=== PATIENT | male | born 1955 | race Caucasian/White ===

== ENCOUNTER → 2019-10-24 12:15 | Outpatient (CLI) | payer OTHER, SELFPAY ==
[2019-10-24 13:00] LABS: Add Manual Diff / Slide Review NO; Basophils Absolute Auto 100 /uL (0-100); Basophils Percent Auto 0.9 % (0-2); Eosinophils Absolute Auto 100 /uL (0-450); Eosinophils Percent Auto 2.2 % (2-4); Hematocrit 43.9 % (41-53); Hemoglobin 14.9 g/dL (13.5-17.5); Lymphocytes Absolute Auto 1900 /uL (1100-4500); Lymphocytes Percent Auto 28.4 % (25-40); Mean Corpuscular Hemoglobin 31.4 PG (26-34); Mean Corpuscular Volume 92.5 fL (80-100); Monocytes Absolute Auto 500 /uL (0-900); Monocytes Percent Auto 7.8 % (3-14); Neutrophils Absolute Auto 4100 /uL (1500-7000); Neutrophils Percent Auto 60.7 % (50-75); Platelet Count 184 X10^3/uL (150-400); Red Blood Cell Count 4.75 X10^6/uL (4.5-5.9); Red Cell Distribution Width 13.2 % (11.6-14.8); White Blood Cell Count 6.8 X10^3/uL (4.5-11.0)
[2019-10-24 13:09] LABS: INR 1.1 (0.9-1.3); Prothrombin Time 12.7 SECONDS (10.1-12.7)
[2019-10-24 13:11] LABS: PTT Partial Thromboplastin Tim 32 SECONDS (26.4-36.2)
[2019-10-24 13:19] LABS: Alanine Aminotransferase 20 IU/L (<50); Albumin 4.6 g/dL (3.5-5.0); Albumin Globulin Ratio 1.5 (1.0-2.8); Alkaline Phosphatase 48 U/L (38-126); Aspartate Aminotransferase 28 IU/L (17-59); BUN Creatinine Ratio 23.8 (6-22); Bilirubin Total 0.7 mg/dL (0.2-1.3); Blood Urea Nitrogen 25 mg/dL (9-20); Calcium 9.8 mg/dL (8.4-10.2); Carbon Dioxide 33 mmol/L (22-32); Chloride 101 mmol/L (98-107); Estimated Glomerular Filt Rate > 60.0 mL/min (>60); Globulin 3.1 g/dL (1.7-4.1); Glucose 95 mg/dL (80-110); HEMOLYSIS < 15 (0-50); Potassium 4.7 mmol/L (3.4-5.1); Sodium 139 mmol/L (137-145); Total Protein 7.7 g/dL (6.3-8.2)
== END ==
PROVIDERS: PCP Family Medicine; Referring Provider Family Medicine; Visit Provider Neurological Surgery
DX: Z01.818 Encounter for other preprocedural examination (principal)
CPT/HCPCS: 36415; 80053; 85025; 85610; 85730

== ENCOUNTER 2021-07-12 18:47 | Emergency (ER) | payer OTHER, SELFPAY ==
[2021-07-12 20:15] VITALS: BP 133/76; PULSE 90; RESP 20; TEMP 37.5; O2SAT 95; BMI 27.8
[2021-07-12 20:43] LABS: Bacteria Urine Many (>30); Culture Indicated Urine Specimen Cultured; RBC Urine 0-1/HPF (0-5/HPF); Squamous Epithelial Cell Urine 0-1 /HPF (0-5/HPF); Urine Comments 0-1 Oval Fat Body; WBC Urine 10-30/HPF (0-5/HPF)
--- NOTE | 2021-07-12 21:16 | ED_ITS ---
HPI - Male Genitourinary <ROBERT Olsen - Last Filed: 07/12/21 22:07> General Chief complaint: Urogenital-Male Stated complaint: UTI Time Seen by Provider: 07/12/21 21:07 Source: patient Mode of arrival: Wheelchair History of Present Illness HPI Narrative: This is a 66-year-old male with Parkinson's who presents to the emergency department for dysuria, pelvic pressure, low-grade fever which started 2 days ago. Patient has had UTIs in the past, he states this is his 3rd time, the last time was 4 years ago. He endorses having an enlarged prostate. He denies any urinary retention, abdominal pain, vomiting, endorses some mild nausea and feeling unwell. He denies any flank or back pain, he will denies taking any medication prior to arrival. Patient denies any recent STI exposure. He denies any rectal pain. Related Data Previous Rx's Medication Instructions Recorded sulfamethoxazole 800 1 tab PO BID 7 Days #14 tab 07/12/21 mg-trimethoprim 160 mg tablet (Bactrim DS) Allergies Allergy/AdvReac Type Severity Reaction Status Date / Time ampicillin [From UNASYN] Allergy Intermediate Unverified 07/29/17 12:31 sulbactam [From UNASYN] Allergy Intermediate Unverified 07/29/17 12:31 vancomycin [VANCOMYCIN] Allergy Intermediate Unverified 07/29/17 12:31 grass pollen Allergy Unknown Unverified 07/29/17 12:31 Review of Systems <ROBERT Olsen - Last Filed: 07/12/21 22:07> Review of Systems Narrative: General: denies fever, chills, malaise, sweats, fatigue Head/Neck: denies headache, neck pain, dizziness Eyes: denies visual changes, eye pain Cardio: denies chest pain, palpitations, edema Respiratory: denies dyspnea, cough, orthopnea GI: denies abdominal pain, nausea, vomiting, or diarrhea : Endorses dysuria, urinary frequency and pelvic pressure, denies hematuria, urinary retention,or incontinence MSK: denies joint pain, muscle weakness Skin: denies rash, itching, skin lesions or other Neuro: denies numbness, tingling Exam <ROBERT Olsen - Last Filed: 07/12/21 22:07> Narrative Exam Narrative: Independently reviewed vitals signs and nursing notes. General: cooperative, comfortable, in no acute distress, well developed and well groomed, slightly febrile 99.5F Head: atraumatic, symmetrical facial expressions Neck: supple, atraumatic, without lymphadenopathy. Eyes: pupils equal round and reactive, EOMI, conjunctiva normal Nose: nares patent, no rhinorrhea Mouth/Throat: uvula midline, moist mucus membranes Cardiovascular: regular rate and rhythm, no peripheral edema, warm extremities Respiratory: normal effort, able to speak in complete sentences, no audible wheezing, stridor, or rales. No retractions or tachypnea. GI: abdomen soft, nontender to palpation, nondistended, no masses, no exquisite tenderness with exam, without guarding or rebound. Patient tolerating p.o., he has been drinking water while waiting in the waiting room. MSK: moves all extremities, ambulatory w/steady gait, neurovascularly intact, no weakness Skin: brisk capillary refill, no rash, no erythema Neuro: normal speech and cognition, A&O x3, normal tone Psych: mental status is grossly normal, congruent mood, normal affect, pleasant and cooperative Initial Vital Signs Initial Vital Signs: Vital Signs Temperature 99.5 F 07/12/21 20:15 Pulse Rate 90 07/12/21 20:15 Respiratory Rate 20 07/12/21 20:15 Blood Pressure 133/76 07/12/21 20:15 Pulse Oximetry 95 07/12/21 20:15 Course <ROBERT Olsen - Last Filed: 07/12/21 22:07> Orders Ordered: Discontinued Medications Acetaminophen (Acetaminophen 325 Mg Tablet) 975 mg PO NOW ONE Stop: 07/12/21 21:16 Last Admin: 07/12/21 21:27 Dose: 975 mg Documented by: MICHELLE Ketorolac Tromethamine (Ketorolac 30 Mg/Ml Vial) 15 mg IM NOW ONE Stop: 07/12/21 21:14 Last Admin: 07/12/21 21:27 Dose: 15 mg Documented by: MICHELLE Trimethoprim/Sulfamethoxazole (Trimeth/Sulfa 160/800 (Ds) Tablet) 1 tab PO NOW ONE Stop: 07/12/21 21:14 Last Admin: 07/12/21 21:27 Dose: 1 tab Documented by: MICHELLE Vital Signs Vital signs: Vital Signs - 8 hr 07/12/21 20:15 07/12/21 21:31 Temperature 99.5 F Pulse Rate 90 84 Respiratory Rate 20 16 Blood Pressure 133/76 105/59 L Pulse Oximetry 95 94 MDM - Male Genitourinary <Catalina Mcknight TABLEAU REPORT DEVELOPER - Last Filed: 07/12/21 22:07> Lab Data Labs: Lab Results 07/12/21 Range/Units 20:25 Urine RBC 0-1/hpf (0-5/HPF) Urine WBC 10-30/hpf H (0-5/HPF) Ur Squamous Epith Cells 0-1 /hpf (0-5/HPF) Urine Bacteria Many (>30) H (None) Ur Culture Indicated? Specimen cultured Micro UA Comment 0-1 oval fat body Urine Dip Bedside Urine Nitrite + Positive MDM Narrative Medical decision making narrative: This is a 66 year female with Parkinson's disease who presents to emergency department complaining dysuria, urinary frequency, pelvic pressure for the last 2 days with a low-grade fever he states this is his 3rd UTI and is likely related to his enlarged prostate. He denies any urinary retention, states it has been 4 years since he has had an infection. UA today shows tendon 30 white blood cells on microscopy with over 30 bacteria, special was cultured, will follow-up on this, 0-1 oval fat body was also noticed on a microscopy. No hematuria. Patient had been waiting in the waiting room for over 2 hours, he states he would like to go home and will return if he has any worsening. He was given a dose of Bactrim in the emergency department, Toradol and Tylenol for his low-grade fever and pain. Encouraged hydration, rest, taking his antibiotics as prescribed, and having close follow-up with his primary care doctor. Was given a referral to Urology as this is his 3rd UTI. Low suspicion for prostatitis, he denies any rectal pain or pain with bowel movements, states that he has not had any STI exposure. Patient was given strict return precautions for any worsening fever, pain, feeling weak, nausea or vomiting. Patient denies any nausea vomiting today. Is most likely a complicated UTI, could also be nephrolithiasis, prostatitis, urethritis. Patient is appropriate and amenable to discharge home. Vital signs are stable on repeat examination is unremarkable. Patient has been informed of results. Patient has been given strict return to ER precautions for any new or worsening symptoms. Patient understands to follow up closely with outpatient providers as instructed. Patient understands plan and agrees to discharge home. All questions and concerns answered at this time. Discharge Plan Departure Patient Disposition: Home Clinical Impression: Complicated urinary tract infection Instructions: Urinary Tract Infection, DI for Urinary Retention in Men Activity Restrictions/Additional Instructions: *You have been diagnosed with a complicated urinary tract infection. Please call and get an appointment with your primary care provider as soon as possible for a recheck on Thursday. Let them know your in the emergency department any need to have follow-up from this visit, this will get you in sooner. [facility], please pick this up tomorrow. Please stay hydrated with electrolyte fluids. Please take Tylenol and or ibuprofen as needed for your fever. Please return to the emergency department if you have any worsening of her symptoms including vomiting, high fever, urinary retention or the inability to void. Thank you for trusting us with your care, please follow-up with urology continue have these problems, I have attached a referral for you. You would need to call and make an appointment with them for evaluation of your prostate and urologic problem. *What to do: *Please continue to take your regular medications as directed. [x ] New medication prescriptions sent to your pharmacy: [[facility] ] [ ] New medication written as a paper prescription [ ] No new medications given *Please follow up with your primary care provider in 2-3 days, call for an appointment. Let them know you were seen in the Emergency Department and that we asked that you be seen for follow-up. We will electronically transmit a record of today's note if your PCP is in our system *If you do not have a primary care provider please contact [phone] to establish care with one of the [facility] primary care providers. *Return to Emergency Department if you should have any new, worsening or concerning symptoms, such as [fever greater than 101F, chills, worsening pain, persistent vomiting or other bothersome symptoms] Prescriptions: New sulfamethoxazole-trimethoprim [Bactrim DS] 800-160 mg tablet 1 tab PO BID 7 Days Qty: 14 0RF Referrals: Yumiko Ann MD [Physician] - David Fan MD [Primary Care Provider] -
[2021-07-12] MEDS: TRIMETH/SULFA 160/800 (DS) TABLET 1 TAB PO (21:27)
[2021-07-12] MEDS: ACETAMINOPHEN 325 MG TABLET 975 MG PO (21:27)
[2021-07-12] MEDS: KETOROLAC 30 MG/ML VIAL 15 MG IM (21:27)
[2021-07-12 21:31] VITALS: BP 105/59; PULSE 84; RESP 16; O2SAT 94
== END 2021-07-12 21:41 | disposition home or self-care (01) ==
PROVIDERS: Emergency Medicine; Emergency Provider Nurse Practitioner Critical Care Medicine; PCP Family Medicine
DX: N39.0 Urinary tract infection, site not specified (principal); B96.20 Unspecified Escherichia coli [E. coli] as the cause of diseases classified elsewhere; N40.1 Benign prostatic hyperplasia with lower urinary tract symptoms
CPT/HCPCS: 81003; 81015; 87077; 87086; 87186; 96372; 99283; J1885

== ENCOUNTER 2021-07-15 10:53 | Emergency (ER) | payer OTHER, SELFPAY ==
[2021-07-15 11:12] VITALS: BP 109/58; PULSE 73; RESP 16; TEMP 36.8; O2SAT 95; BMI 27.1
--- NOTE | 2021-07-15 11:47 | ED_ITS ---
HPI - General Adult General Chief complaint: Urogenital-Male Stated complaint: UTI complications. Returning- Not getting better Time Seen by Provider: 07/15/21 11:04 Source: patient and family Mode of arrival: Wheelchair Limitations: no limitations History of Present Illness HPI narrative: 66-year-old male. Has a history of Parkinson's disease. Was seen here several days ago was diagnosed with the urinary tract infection. Was sent home with Bactrim. Since that time a urine culture has resulted. It was E coli that was sensitive to many antibiotics except was resistant to Bactrim. This resulted yesterday. He was contacted and switched to Macrobid. He has taken 2 doses of the Macrobid. He is here today because he is still continuing to have symptoms and is also having testicular pain. No nausea vomiting. Is having subjective fevers. No abdominal pain. States that he is feeling like he is not emptying his bladder all the way. He has had a urinary tract infection the past but that was many years ago. Is not followed by urology. Related Data Previous Rx's Medication Instructions Recorded sulfamethoxazole 800 1 tab PO BID 7 Days #14 tab 07/12/21 mg-trimethoprim 160 mg tablet (Bactrim DS) nitrofurantoin 100 mg PO Q12H 5 Days #10 cap 07/14/21 monohydrate/macrocrystals 100 mg capsule (Macrobid) Allergies Allergy/AdvReac Type Severity Reaction Status Date / Time ampicillin [From UNASYN] Allergy Intermediate Unverified 07/29/17 12:31 sulbactam [From UNASYN] Allergy Intermediate Unverified 07/29/17 12:31 vancomycin [VANCOMYCIN] Allergy Intermediate Unverified 07/29/17 12:31 grass pollen Allergy Unknown Unverified 07/29/17 12:31 Review of Systems Constitutional Constitutional: Reports fatigue and Reports fever(s) Gastrointestinal Gastrointestinal: Reports as per HPI and Reports system reviewed and no additional complaints, except as documented Genitourinary Genitourinary: Reports system reviewed and no additional complaints, except as documented and Reports as per HPI Integumentary/Breasts Skin/Breast: Reports system reviewed and no additional complaints, except as documented Neurologic Neurologic: Reports system reviewed and no additional complaints, except as documented Endocrine Endocrine: Reports fatigue Hematologic/Lymphatic On Anticoagulants: No Patient History Medical History Parkinsons disease Social History marital status: lives independently: Yes Exam Initial Vital Signs Initial Vital Signs: Vital Signs Temperature 98.3 F 07/15/21 11:12 Pulse Rate 73 07/15/21 11:12 Respiratory Rate 16 07/15/21 11:12 Blood Pressure 109/58 L 07/15/21 11:12 Pulse Oximetry 95 07/15/21 11:12 HENMT Head: normal to inspection and normocephalic Resp Effort & Inspection: normal respiratory effort Auscultation: clear to auscultation bilaterally Cardio Rate: regular rate Rhythm: regular rhythm GI Inspection: normal to inspection and non-distended Other: Patient does have a tender swollen right testicle. Left testicle is unremarkable. No hernia felt. Skin General: no rashes or lesions noted Neuro General: patient alert, patient awake, patient oriented x3 and moves all extremities Extrem General: normal to inspection and capillary refill normal Psych Appearance: grossly normal and well kempt Course Orders Ordered: ED Orders 07/15/21 11:47 US scrotum Stat Discontinued Medications Ceftriaxone Sodium 1,000 mg/ (Sodium Chloride) 100 mls @ 200 mls/hr IV NOW ONE Stop: 07/15/21 11:48 Last Infusion: 07/15/21 12:43 Dose: 0 mls/hr Documented by: Admin: 07/15/21 12:06 Dose: 200 mls/hr Documented by: DL Vital Signs Vital signs: Vital Signs - 8 hr 07/15/21 11:12 07/15/21 13:23 07/15/21 14:32 Temperature 98.3 F 97.5 F L Pulse Rate 73 60 Respiratory Rate 16 16 Blood Pressure 109/58 L 117/60 Pulse Oximetry 95 97 Medical Decision Making Imaging Data Scrotal ultrasound: Radiologist's Impression: [address] [address] Ultrasound Report Signed Patient: Jose Edgar MR#: [id number] : 1955 Acct:[id number] Age/Sex: 66 / M Date of Service: 07/15/21 Loc: ED Accession Number: [id number] ?? Procedure: US scrotum Ordering Provider: Humberto Del Castillo D.O. PROCEDURE:? US SCROTUM ? INDICATIONS:? RIGHT TESTICULAR SWELLING ? TECHNIQUE:? Real-time scanning was performed of the scrotum and testicles, with image documentation.? Color and pulse Doppler interrogation was performed of both testicles.? ? COMPARISON:? None. ? FINDINGS:? ? Right:? Testicle is normal in size at 4.6 x 3.4 x 2.2 cm, and homogenous in echotexture.? Epididymal body and tail are prominent.? There is increased vascularity.? The tail is heterogeneous in appearance.? Small epididymal head cysts.? No hydrocele or varicoceles.? Overlying scrotal skin is mildly thickness.? ? Left:? Testicle is normal in size at 4.7 x 2.6 x 2.4 cm, and homogeneous in echotexture.? Epididymis is normal in overall size and morphology.? Small epididymal head cysts.? No hydrocele or varicoceles.? Overlying scrotal skin is normal in thickness.? ? Doppler:? Increased vascularity in the right epididymis compared to the left.? Vascularity in the testicles appears to be within normal limits. ? IMPRESSION:? 1. Right epididymis is mildly heterogeneous and prominent in size compared to the left.? There is increased right epididymal vascularity.? There is right scrotal wall thickening. ?Findings most consistent with right epididymitis. ? 2. No testicular mass demonstrated. ? 3. No hydrocele or varicocele. ? ? Dictated by: Nirmal Damico M.D. on 07/15/2021 at 13:59 ? ? Approved by: Nirmal Damico M.D. on 07/15/2021 at 14:03? [facility] Narrative Medical decision making narrative: He does have a known urinary tract infection. The culture shows E coli that was resistant to Bactrim so essentially over the past several days he has had an untreated urinary tract infection. He has only had 2 doses of Macrobid. I do have low suspicion that this is pyelonephritis based on his presentation today. He also has new symptoms of right testicular pain and swelling. Ultrasound is consistent with epididymitis. Informed him that this could potentially be related to his urinary tract infection although I think it is unlikely. If it is related that he is currently on an antibiotic that would treat this infection. It could also be unrelated. He does take anti-inflammatories for fevers. I do not feel the patient needs admitted to the hospital based on his presentation today. His vital signs are reassuring. He is nontoxic-appearing. He is not retaining urine. Plan was to continue to have him take the Macrobid. If his symptoms worsen he will return to the ER. He was given a dose of Rocephin here in the ER given the fact that he has gone several days without proper treatment. He expressed understanding and agreement. His is at bedside also expressed understanding and agreement. Discharge Plan Departure Patient Disposition: Home Clinical Impression: Urinary tract infection, Epididymitis Instructions: Epididymitis, DI for Urinary Tract Infection (UTI) Activity Restrictions/Additional Instructions: I do recommend that you continue to take the Macrobid as directed. Contact your primary doctor for a follow-up. Return to the emergency department for any new or worsening symptoms. Prescriptions: No Action sulfamethoxazole-trimethoprim [Bactrim DS] 800-160 mg tablet 1 tab PO BID 7 Days Qty: 14 0RF nitrofurantoin monohyd/m-cryst [Macrobid] 100 mg capsule 100 mg PO Q12H 5 Days Qty: 10 0RF Rx Instructions: must administer with a meal/food Referrals: David Fan MD [Primary Care Provider] -
--- NOTE | 2021-07-15 11:47 | DI.US.S_ITS ---
PROCEDURE: US SCROTUM INDICATIONS: RIGHT TESTICULAR SWELLING TECHNIQUE: Real-time scanning was performed of the scrotum and testicles, with image documentation. Color and pulse Doppler interrogation was performed of both testicles. COMPARISON: None. FINDINGS: Right: Testicle is normal in size at 4.6 x 3.4 x 2.2 cm, and homogenous in echotexture. Epididymal body and tail are prominent. There is increased vascularity. The tail is heterogeneous in appearance. Small epididymal head cysts. No hydrocele or varicoceles. Overlying scrotal skin is mildly thickness. Left: Testicle is normal in size at 4.7 x 2.6 x 2.4 cm, and homogeneous in echotexture. Epididymis is normal in overall size and morphology. Small epididymal head cysts. No hydrocele or varicoceles. Overlying scrotal skin is normal in thickness. Doppler: Increased vascularity in the right epididymis compared to the left. Vascularity in the testicles appears to be within normal limits. IMPRESSION: 1. Right epididymis is mildly heterogeneous and prominent in size compared to the left. There is increased right epididymal vascularity. There is right scrotal wall thickening. Findings most consistent with right epididymitis. 2. No testicular mass demonstrated. 3. No hydrocele or varicocele. Dictated by: Nirmal Damico M.D. on 07/15/2021 at 13:59 Approved by: Nirmal Damico M.D. on 07/15/2021 at 14:03
--- NOTE | 2021-07-15 11:52 | PC.NURSE ---
Recently started on abx for UTI called yesterday and had antibiotic changed due to culture. Patient not feeling much better, reports new testicular pain and swelling. Denies flank pain. Patient is diaphoretic
[2021-07-15] MEDS: cefTRIAXone 1,000 MG in SODIUM CHLORIDE 0.9% 100 ML 200 ML IV (12:06)
[2021-07-15 13:23] VITALS: TEMP 36.4
[2021-07-15 14:32] VITALS: BP 117/60; PULSE 60; RESP 16; O2SAT 97
--- NOTE | 2021-07-18 10:03 | PC.NURSE ---
pt spouse called asking if we could write script to extend the antibiotics, i said no, it'd be best to follow up with us or pcp if pt is still having symptoms.
== END 2021-07-15 14:33 | disposition home or self-care (01) ==
PROVIDERS: Emergency Provider Emergency Medicine; PCP Family Medicine
DX: N39.0 Urinary tract infection, site not specified (principal); B96.20 Unspecified Escherichia coli [E. coli] as the cause of diseases classified elsewhere; N45.1 Epididymitis; Z16.39 Resistance to other specified antimicrobial drug
CPT/HCPCS: 51798; 76870; 96365; 99284; J0696

== ENCOUNTER 2022-05-28 22:47 | Emergency (ER) | payer MEDICARE, OTHER, SELFPAY ==
[2022-05-28 22:56] VITALS: BP 139/77; PULSE 92; RESP 18; TEMP 38.3; O2SAT 94; BMI 27.8
[2022-05-29 00:18] LABS: Add Manual Diff / Slide Review NO; Basophils Absolute Auto 0 /uL (0-100); Basophils Percent Auto 0.5 % (0-2); Eosinophils Absolute Auto 100 /uL (0-450); Eosinophils Percent Auto 1.2 % (2-4); Hematocrit 41.2 % (41-53); Hemoglobin 14.2 g/dL (13.5-17.5); Lymphocytes Absolute Auto 1200 /uL (1100-4500); Mean Corpuscular HGB Conc 34.5 % (30-36); Mean Corpuscular Hemoglobin 31.2 PG (26-34); Mean Corpuscular Volume 90.4 fL (80-100); Monocytes Absolute Auto 1000 /uL (0-900); Monocytes Percent Auto 10.7 % (3-14); Neutrophils Absolute Auto 6800 /uL (1500-7000); Neutrophils Percent Auto 74.6 % (50-75); Platelet Count 188 X10^3/uL (150-400); Red Blood Cell Count 4.55 X10^6/uL (4.5-5.9); Red Cell Distribution Width 13.3 % (11.6-14.8); White Blood Cell Count 9.2 X10^3/uL (4.5-11.0)
[2022-05-29 00:28] LABS: Alanine Aminotransferase 31 IU/L (<50); Albumin Globulin Ratio 1.2 (1.0-2.8); Alkaline Phosphatase 55 U/L (38-126); Aspartate Aminotransferase 34 IU/L (17-59); BUN Creatinine Ratio 19.8 (6-22); Bilirubin Total 0.6 mg/dL (0.2-1.3); Blood Urea Nitrogen 26 mg/dL (9-20); Calcium 8.4 mg/dL (8.4-10.2); Carbon Dioxide 24 mmol/L (22-32); Chloride 101 mmol/L (98-107); Estimated Glomerular Filt Rate > 60 mL/min (>60); Globulin 3.4 g/dL (1.7-4.1); Glucose 171 mg/dL (80-110); HEMOLYSIS 25 (0-50); Potassium 4.1 mmol/L (3.4-5.1); Sodium 136 mmol/L (137-145); Total Protein 7.4 g/dL (6.3-8.2)
[2022-05-29 00:29] LABS: Lactate (Lactic Acid) 1.2 mmol/L (0.7-2.1)
[2022-05-29 00:32] LABS: Bilirubin Urine UA NEGATIVE (NEGATIVE); Color Urine UA YELLOW; Glucose Urine UA NEGATIVE (Negative); Ketones Urine UA NEGATIVE (NEGATIVE); Leukocyte Esterase Urine UA NEGATIVE (NEGATIVE); Nitrite Urine UA POSITIVE (Negative); Occult Blood Urine UA TRACE-INTACT (Negative); Protein Urine UA NEGATIVE (Negative); Specific Gravity Urine UA 1.015 (1.000-1.035); Urobilinogen Urine UA 0.2 E.U./dL (0.2)
[2022-05-29 00:33] LABS: Appearance Urine UA Slightly Cloudy
[2022-05-29 00:34] LABS: Bacteria Urine Moderate (10-30); Culture Indicated Urine Specimen Cultured; RBC Urine 0-1/HPF (0-5/HPF); Squamous Epithelial Cell Urine 0-1 /HPF (0-5/HPF); WBC Urine 10-30/HPF (0-5/HPF)
[2022-05-29 00:45] LABS: Procalcitonin 0.32 ng/mL (<0.5)
--- NOTE | 2022-05-29 00:48 | ED.MALEGU ---
HPI - Male Genitourinary General Chief complaint: Urogenital-Male Stated complaint: Yeast infection Time Seen by Provider: 05/28/22 23:37 Source: patient Mode of arrival: Ambulatory History of Present Illness HPI Narrative: The patient is a 67-year-old male history of Parkinson's presenting today with painful frequent urination ongoing for the last 5 days. He actually went to a walk-in clinic today was diagnosed with prostatitis started on Cipro and Flomax. He said he took 1 dose of the Cipro he started having more body aches tremors and feeling poorly. He is noted to have fever here of 100.9 he denies any abdominal pain nausea vomiting chest pain cough shortness of breath or other symptoms. There was concern that he might not be emptying his bladder however his bladder scan shows that he is less than 10 mL in his bladder. He is staying hydrated. According to records he previously had E coli UTI that was resistant to Bactrim and ampicillin but sensitive to fluoroquinolones. Related Data Allergies Allergy/AdvReac Type Severity Reaction Status Date / Time amoxicillin Allergy Intermediate Rash Verified 07/20/21 10:20 ampicillin [From UNASYN] Allergy Intermediate Unverified 07/29/17 12:31 sulbactam [From UNASYN] Allergy Intermediate Unverified 07/29/17 12:31 vancomycin [VANCOMYCIN] Allergy Intermediate Unverified 07/29/17 12:31 grass pollen Allergy Unknown Unverified 07/29/17 12:31 Review of Systems Review of Systems ROS Unobtainable: All systems reviewed & are unremarkable except as noted in HPI and below Patient History Medical History Parkinsons disease Social History marital status: lives independently: Yes Smoking Status: Never smoker Smoking Status: Never smoker Substance Use Type: does not use Exam Initial Vital Signs Initial Vital Signs: Vital Signs Temperature 100.9 F H 05/28/22 22:56 Pulse Rate 92 H 05/28/22 22:56 Respiratory Rate 18 05/28/22 22:56 Blood Pressure 139/77 05/28/22 22:56 Pulse Oximetry 94 05/28/22 22:56 Oxygen Delivery Method 05/28/22 22:56 GENERAL: Sleeping easily arousable 67-year-old male no acute distress and in no acute distress. HEENT: Head atraumatic,EOMI, pupils reactive, face symmetric, slightly dry mucous membranes CARDIOVASCULAR: Regular rate and rhythm without murmurs, rubs or gallops. RESPIRATORY: Breath sounds equal bilaterally, no wheezes rales or rhonchi. ABDOMEN: Soft, nontender. Normoactive bowel sounds all 4 quadrants. No guarding or rebound. : No CVA tenderness EXTREMITIES: Normal range of motion, no clubbing or edema. Neurovascularly intact NEUROLOGICAL: Alert and oriented x4. SKIN: Warm, dry, no laceration, no petechiae, no rashes or lesions. Course Orders Ordered: ED Orders 05/28/22 23:37 Blood Culture Stat 05/29/22 00:00 UA Complete [Urinalysis and Microscopic] Stat Urine Culture Stat Vital Signs Vital signs: Vital Signs - 8 hr 05/28/22 22:56 05/29/22 01:10 Temperature 100.9 F H Pulse Rate 92 H 69 Respiratory Rate 18 18 Blood Pressure 139/77 131/58 L Pulse Oximetry 94 94 Oxygen Delivery Method Room Air Room Air MDM - Male Genitourinary Lab Data 05/28/22 00:00 05/28/22 00:00 Labs: Lab Results 05/28/22 05/28/22 05/28/22 Range/Units 00:00 00:00 00:00 WBC 9.2 (4.5-11.0) X10^3/uL RBC 4.55 (4.5-5.9) X10^6/uL Hgb 14.2 (13.5-17.5) g/dL Hct 41.2 (41-53) % MCV 90.4 (80-100) fL MCH 31.2 (26-34) PG MCHC 34.5 (30-36) % RDW 13.3 (11.6-14.8) % Plt Count 188 (150-400) X10^3/uL Neut % (Auto) 74.6 (50-75) % Lymph % (Auto) 13.0 L (25-40) % [place] % (Auto) 10.7 (3-14) % Eos % (Auto) 1.2 L (2-4) % Baso % (Auto) 0.5 (0-2) % Neut # (Auto) 6800 (6915-1596) /uL Lymph # (Auto) 1200 (8994-6355) /uL [place] # (Auto) 1000 H (0-900) /uL Eos # (Auto) 100 (0-450) /uL Baso # (Auto) 0 (0-100) /uL Sodium 136 L (137-145) mmol/L Potassium 4.1 (3.4-5.1) mmol/L Chloride 101 (98-107) mmol/L Carbon Dioxide 24 (22-32) mmol/L BUN 26 H (9-20) mg/dL Creatinine 1.31 H (0.66-1.25) mg/dL Estimated GFR > 60 (>60) mL/min BUN/Creatinine Ratio 19.8 (6-22) Glucose 171 H (80-110) mg/dL Lactate 1.2 (0.7-2.1) mmol/L Calcium 8.4 (8.4-10.2) mg/dL Total Bilirubin 0.6 (0.2-1.3) mg/dL AST 34 (17-59) IU/L ALT 31 (<50) IU/L Alkaline Phosphatase 55 (38-126) U/L Total Protein 7.4 (6.3-8.2) g/dL Albumin 4.0 (3.5-5.0) g/dL Globulin 3.4 (1.7-4.1) g/dL Albumin/Globulin Ratio 1.2 (1.0-2.8) Procalcitonin 0.32 (<0.5) ng/mL Urine Color Urine Appearance Urine pH (4.5-8.0) Ur Specific [place] (1.000-1.035) Urine Protein (Negative) Urine Glucose (UA) (Negative) g/dL Urine Ketones (NEGATIVE) Urine Occult Blood (Negative) Urine Nitrate (Negative) Urine Bilirubin (NEGATIVE) Urine Urobilinogen (0.2) E.U./dL Ur Leukocyte Esterase (NEGATIVE) Urine RBC (0-5/HPF) Urine WBC (0-5/HPF) Ur Squamous Epith Cells (0-5/HPF) Urine Bacteria (None) Ur Culture Indicated? 05/29/22 Range/Units 00:00 WBC (4.5-11.0) X10^3/uL RBC (4.5-5.9) X10^6/uL Hgb (13.5-17.5) g/dL Hct (41-53) % MCV (80-100) fL MCH (26-34) PG MCHC (30-36) % RDW (11.6-14.8) % Plt Count (150-400) X10^3/uL Neut % (Auto) (50-75) % Lymph % (Auto) (25-40) % [place] % (Auto) (3-14) % Eos % (Auto) (2-4) % Baso % (Auto) (0-2) % Neut # (Auto) (2155-1626) /uL Lymph # (Auto) (8655-1203) /uL [place] # (Auto) (0-900) /uL Eos # (Auto) (0-450) /uL Baso # (Auto) (0-100) /uL Sodium (137-145) mmol/L Potassium (3.4-5.1) mmol/L Chloride (98-107) mmol/L Carbon Dioxide (22-32) mmol/L BUN (9-20) mg/dL Creatinine (0.66-1.25) mg/dL Estimated GFR (>60) mL/min BUN/Creatinine Ratio (6-22) Glucose (80-110) mg/dL Lactate (0.7-2.1) mmol/L Calcium (8.4-10.2) mg/dL Total Bilirubin (0.2-1.3) mg/dL AST (17-59) IU/L ALT (<50) IU/L Alkaline Phosphatase (38-126) U/L Total Protein (6.3-8.2) g/dL Albumin (3.5-5.0) g/dL Globulin (1.7-4.1) g/dL Albumin/Globulin Ratio (1.0-2.8) Procalcitonin (<0.5) ng/mL Urine Color Yellow Urine Appearance Slightly cloudy Urine pH 7.0 (4.5-8.0) Ur Specific [place] 1.015 (1.000-1.035) Urine Protein Negative (Negative) Urine Glucose (UA) Negative (Negative) g/dL Urine Ketones Negative (NEGATIVE) Urine Occult Blood Trace-intact (Negative) Urine Nitrate Positive H (Negative) Urine Bilirubin Negative (NEGATIVE) Urine Urobilinogen 0.2 (0.2) E.U./dL Ur Leukocyte Esterase Negative (NEGATIVE) Urine RBC 0-1/hpf (0-5/HPF) Urine WBC 10-30/hpf H (0-5/HPF) Ur Squamous Epith Cells 0-1 /hpf (0-5/HPF) Urine Bacteria Moderate (10-30) H (None) Ur Culture Indicated? Specimen cultured Urine Dip Bedside Urine Glucose Negative Bedside Urine Bilirubin - Negative Bedside Urine Ketone - Negative Urine Specific [place] 1.020 Bedside Urine Occult Blood ++ Bedside Urine pH 6 Bedside Urine Protein - Negative Bedside Urine Urobilinogen - Negative Bedside Urine Nitrite + Positive Bedside Urine Leukocytes +/- 15 Esterase MDM Narrative Medical decision making narrative: The patient 67-year-old male history of Parkinson's presents today with painful frequent urination ongoing for last 5 days diagnosed with prostatitis started on Cipro which he is taken 1 dose of presents today with fever. Blood work is overall reassuring no significant leukocytosis or lactic acid. Vitals are stable, although he is febrile he is not significantly tachycardic or hypotensive. He overall appears well. At this time I recommend that he continue his ciprofloxacin as previously prescribed. Blood cultures and urine culture are pending sensitivities will return in the next 2-3 days. Discharge Plan Departure Patient Disposition: Home Clinical Impression: Acute UTI Instructions: DI for Urinary Tract Infection (UTI) Activity Restrictions/Additional Instructions: *You have been diagnosed with UTI *What to do: At this time please keep taping your antibiotics it may take up to 48 hours before he starts feeling better. Please stay hydrated. Treat fever as needed with Tylenol or Motrin. *Continue to take medications as directed Tylenol 650 mg every 4-6 hours if needed for fever Motrin 600 mg every 6 hours if needed for fever Taken finish antibiotics as prescribed, should be about 7-10 days' worth of antibiotics *Follow up with your primary care provider in 2-3 days or call [phone] *Return to ER if you should have decreasing mental status, inability to urinate for 6-8 hours with worsening abdominal pain or vomiting or any new, worsening or concerning symptoms Referrals: Sony Meléndez MD [Primary Care Provider] - Stand Alone Forms: Patient Portal/API
[2022-05-29 01:10] VITALS: BP 131/58; PULSE 69; RESP 18; O2SAT 94
== END 2022-05-29 01:19 | disposition home or self-care (01) ==
PROVIDERS: Emergency Provider Emergency Medicine; Family Provider Family Medicine; PCP Internal Medicine
DX: N39.0 Urinary tract infection, site not specified (principal); G20 Parkinson's disease
CPT/HCPCS: 36415; 51798; 80053; 81001; 81003; 83605; 84145; 85025; 87040; 87086; 99283

== ENCOUNTER 2023-01-23 13:27 | Emergency (ER) | payer MEDICARE, OTHER, SELFPAY ==
[2023-01-23 13:42] VITALS: BP 133/63; PULSE 53; RESP 16; TEMP 36.6; O2SAT 97; BMI 27.8
--- NOTE | 2023-01-23 13:45 | DI.RAD.S_ITS ---
PROCEDURE: XR FINGER LT MIN 2V INDICATIONS: left thumb injury from one week ago TECHNIQUE: AP hand, 2 views of the 1st finger(s) acquired. COMPARISON: None. FINDINGS: Bones: No dislocations. No suspicious bony lesions. There is a articular margin fracture that is comminuted and displaced at the base of the distal phalanx of the thumb. A 7 x 8 mm dorsal articular margin fracture fragment is rotated and displaced best seen on 1 of the three views. Soft tissues: No suspicious soft tissue calcifications. IMPRESSION: Comminuted articular margin fracture with displacement at the base of the 1st distal phalanx. Dictated by: Kosta Campo M.D. on 01/23/2023 at 14:50 Approved by: Kosta Campo M.D. on 01/23/2023 at 14:52
[2023-01-23 16:32] VITALS: BP 135/64; PULSE 51; RESP 17; TEMP 36.4; O2SAT 95
[2023-01-23 17:37] VITALS: PULSE 78
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
== END 2023-01-23 17:59 | disposition home or self-care (01) ==
PROVIDERS: Emergency Provider Emergency Medicine; Family Provider Family Medicine; PCP Internal Medicine
DX: S62.522A Displaced fracture of distal phalanx of left thumb, initial encounter for closed fracture (principal); V18.0XXA Pedal cycle driver injured in noncollision transport accident in nontraffic accident, initial encounter; Y93.55 Activity, bike riding
CPT/HCPCS: 73140; 99283

== ENCOUNTER 2023-02-13 14:35 | Day surgery (SDC) | payer MEDICARE, OTHER, SELFPAY ==
[2023-02-12 08:26] VITALS: BMI 28.5
[2023-02-13 15:03] VITALS: BMI 28.5
[2023-02-13] MEDS: LACTATED RINGERS 1,000 ML 42 ML IV (15:08)
--- NOTE | 2023-02-13 15:15 | PM.PREOP ---
Pre-operative Note Interval Note History & Physical reviewed/Exam performed by Physician: Yes Changes to H&P: No
[2023-02-13 15:28] VITALS: BP 119/66; PULSE 49; RESP 20; TEMP 36.3; O2SAT 97
[2023-02-13] MEDS: CLINDAMYCIN 900 MG in SODIUM CHLORIDE 0.9% 100 ML 106 MG IV (15:50)
[2023-02-13] MEDS: BUPIVACAINE 0.5% (PF) 30 ML, EPINEPHrine 0.15 MG INJ (16:04)
[2023-02-13 17:09] VITALS: BP 118/65; PULSE 59; RESP 11; TEMP 36.9; O2SAT 95
--- NOTE | 2023-02-13 17:11 | P.OP_ITS ---
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 Intra- articular fracture involving the IP joint of the right thumb. Surgeon: Mohsen Nuno Click Yes if Unassisted: Yes Anesthesia Type: Peripheral nerve block Operative Notes Findings: Chronic ulnar collateral ligament rupture as well as acute intra-articular fracture involving the right thumb. Closure Type: primary Applied: implant(s) (Two Ar[employer]rex SwiveLock anchors 3 K-wires.) Estimated Blood Loss (mL): 5 Tourniquet time (min): 82 Procedure in detail: On date of Service, patient was met in the holding area where his operative site was signed and witnessed by the OR staff. The surgery is once again discussed with the patient in remaining questions or concerns he had were answered to his full satisfaction. Patient was taken back to the operating theater and placed on the operating table in a supine position. Great care was taken to ensure that all bony prominences were appropriately padded. Well-padded tourniquet was placed up along the upper extremity and a time-out was performed verifying patient's name, procedure and operative site. The upper extremity was prepped and draped in the normal sterile fashion. And Esmarch was used to exsanguinate the limb and the tourniquet was turned up to 250 mmHg. Curvilinear incision was made centered over the ulnar aspect of the MCP joint. A 15 blade was used incise the skin and fascial tissue. Bipolar electrocautery was used to achieve hemostasis. Deep knife was then used to continued sharp dissection and the aponeurosis was split giving us a good visualization of the ulnar collateral ligament. Quite a bit of thinning at the attachment at the proximal phalanx but not a complete rupture. Signs of some pseudo tendinous material. This was sharply dissected free of the proximal phalanx in the thinner more unhealthy tissue was sharply excised. Due to the poor nature of the ligamentous tissue a tendon graft was used. Small incision was made at the distal wrist crease right over the palmaris longus. Fifteen blade was used to incise through skin and fascial tissue. Blunt dissection was performed until the palmaris longus was visualized. Second incision was made about 10 cm proximal over the palmaris longus and a small portion of the palmaris longus was harvested. Two drill holes were made 1 in the metacarpal 1 in the proximal phalanx. The tendon graft as well as suture material was tenodesed in the metacarpal. This was then taken across the joint and then tenodesed in the proximal phalanx providing a stabilization of the MCP joint. This got rid of the excess laxity to the MCP joint and help stabilize the joint. The wound was then copiously irrigated. Aponeurosis was closed in the rest of the wound was closed in a layered fashion. K-wire was placed across the MCP joint stabilizing the joint in extension and taken any pressure off the tendon graft and ligament repair. Next we turned our attention to the intra-articular fracture. An incision was made centered over the IP joint of the thumb. Fifteen blade was used to incise through skin and fascial tissue. Sharp dissection was continued with a 15 blade until the intra-articular fragment was identified. It was reduced using a 2 point reduction forceps. Once we were satisfied with the reduction which was verified on C-arm 2 K-wires were placed reducing the intra-articular fragment back to the distal phalanx helping to reapproximate the joint surface. The hand was cleaned, dried, and dressed and patient was placed into a splint. Complications: none Post-operative Condition: stable Disposition: PACU Plan for aftercare: Patient will be immobilized for 6 weeks. After 2 weeks he can be converted into a hand based splint immobilizing the IP and MCP joint of the thumb with a basal joint free.
[2023-02-13 17:14] VITALS: BP 129/74; PULSE 58; RESP 11; O2SAT 95
[2023-02-13] MEDS: OXYCODONE IR 5 MG TABLET PO (17:21)
[2023-02-13 17:22] VITALS: BP 113/57; PULSE 60; RESP 13; O2SAT 97
[2023-02-13 17:30] VITALS: BP 126/68; PULSE 54; RESP 16; TEMP 36.4; O2SAT 98
== END 2023-02-13 17:56 | disposition home or self-care (01) ==
PROVIDERS: Family Provider Family Medicine; PCP Internal Medicine; Referring Provider Orthopaedic Surgery; Visit Provider Orthopaedic Surgery
PROC: (CPT 26541; principal; 2023-02-13 15:45)
DX: S62.522A Displaced fracture of distal phalanx of left thumb, initial encounter for closed fracture (principal); S63.642A Sprain of metacarpophalangeal joint of left thumb, initial encounter; Y93.55 Activity, bike riding
CPT/HCPCS: 26541 ×2; C1713; J0171; J0736; J2704

== ENCOUNTER → 2023-09-08 15:09 | Outpatient (CLI) | payer MEDICARE, OTHER, SELFPAY ==
--- NOTE | 2023-09-08 15:13 | DI.US.S_ITS ---
PROCEDURE: US SOFT TISSUE HEAD AND NECK INDICATIONS: ENLARGED RT JAWLINE LUMP TECHNIQUE: Real-time scanning was performed of the neck region of interest, with image documentation. COMPARISON: None. FINDINGS: Within the right submandibular gland, there is an ill-defined, heterogeneous, mostly hypoechoic region with internal vascularity measuring 1.2 x 1.2 x 1.2 centimeter. IMPRESSION: Small vascular mass within the right submandibular gland measuring 1.2 centimeters. Recommend ENT referral for possible biopsy, as both benign and malignant lesions might thin the submandibular gland are possible, with imaging unable to differentiate between these. Dictated by: Mahendra Herring M.D. on 09/09/2023 at 8:52 Approved by: Mahendra Herring M.D. on 09/09/2023 at 8:55
== END ==
PROVIDERS: Family Provider Family Medicine; PCP Internal Medicine; Referring Provider Internal Medicine; Visit Provider Internal Medicine
DX: K11.9 Disease of salivary gland, unspecified (principal); R59.0 Localized enlarged lymph nodes
CPT/HCPCS: 76536

== ENCOUNTER → 2023-12-22 14:40 | Outpatient (CLI) | payer MEDICARE, OTHER, SELFPAY ==
--- NOTE | 2023-12-22 14:42 | DI.CT.S_ITS ---
PROCEDURE: CT SOFT TISSUE NECK W CON INDICATIONS: SUBMANDIBULAR GLAND INFLAMMATION TECHNIQUE: After the administration of intravenous contrast, 3.0 mm axial sections acquired from the sella to the aortic arch. Additional oblique axial 3.0 mm sections acquired through the pharynx. 3 mm thick coronal and sagittal reformats were generated. For radiation dose reduction, the following was used: automated exposure control. COMPARISON: None. FINDINGS: Skull Base: The visualized intracranial contents, skull, and orbits are unremarkable. Visualized paranasal sinuses are clear. Bilateral deep brain stimulator leads in place. Pharynx and Larynx: The nasopharyngeal airway is patent and midline. Parapharyngeal soft tissues including palatine tonsils and base of the tongue are normal. Retropharyngeal space unremarkable. Normal appearance of the false and true vocal cords. Muscles and Fascial Planes: Fascial planes are well maintained. No abscess or mass lesion. Lymph Nodes: No evidence of adenopathy. Vasculature: Unremarkable. Submandibular and Parotid Glands: Right submandibular gland is edematous and slightly enlarged. There are calculi within the submandibular duct distally. Calculi measure 1.0 x 0.8 and 1.0 x 0 point 7 cm left submandibular and unremarkable Thyroid: Unremarkable. No enlarged or calcified nodules. Bones: Multilevel degenerative disc disease and arthropathy. Lung Apices: The visualized lung apices are clear. 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 on 12/23/2023 at 17:14
[2023-12-22 15:08] LABS: Estimated Glomerular Filt Rate > 60 mL/min (>60)
== END ==
LOC: CT 14:41
PROVIDERS: Radiology Diagnostic Radiology; Family Provider Family Medicine; PCP Internal Medicine; Referring Provider Otolaryngology; Visit Provider Otolaryngology
DX: K11.20 Sialoadenitis, unspecified (principal); K11.5 Sialolithiasis; M50.30 Other cervical disc degeneration, unspecified cervical region; M47.812 Spondylosis without myelopathy or radiculopathy, cervical region; Z96.82 Presence of neurostimulator
CPT/HCPCS: 36415; 70491; 82565; Q9967

== ENCOUNTER → 2024-04-28 09:44 | Outpatient (CLI) | payer MEDICARE, OTHER, SELFPAY ==
--- NOTE | 2024-04-28 14:16 | ST.SWALLOW ---
Addendum entered and electronically signed by Laci Najera 04/28/24 14:24: An incorrect error in documentation of PCP as being Dr Horvath. The CORRECT PCP/ referral source is Dr Sera Doyle, Neurologist Original Note: Visit Care Team Role Provider Type Sony Meléndez MD Primary Care Provider Non-Staff Specialty: Internal Medicine Address: [address] [place], [address] Email: Dvaid Fan MD Family Provider Non-Staff Specialty: Medical Address: [address], [place], [address] Email: Holland Lal MD Attending Provider Physician Referring Provider Specialty: Ear, Nose, Throat Address: [address] [place] [address], [id number] Email: [email or web address] Modified Barium Swallow Study [employer] G[employer]ERING [employer]OR Modified Barium Swallow Study Start: 04/28/24 12:52 Freq: Status: Active Protocol: Document 04/28/24 13:10 JAVIER (Rec: 04/28/24 14:16 [id number]) Modified Barium Swallow Study Total Time Visit Start Time 10:00 Visit Stop Time 10:45 Total Visit Minutes [address] Horvath Reason for Referral Dysphagia; Parkinson's Disease Setting Setting Outpatient Care Patient Information Identification Type Name,Date of Patient History Pt is a 68 year old male seen this date for evaluation d/t dysphagia secondary to Parkinson's disease (PD). Pt reports dx of PD in 2019 and had a deep brain stimulator put in on 11/07/19. He states swallowing difficulties have been going on for years. Specifically, he states the feeling of food getting stuck in his throat resulting in coughing/choking episodes. He reports most difficulties swallowing dry, crumbly foods. He also reports the feeling of liquids going down the wrong pipe. Pt had an ultrasound of his neck on 09/07 which revealed a ?Right sided submandibular gland duct stones resulting in at least partial obstruction and edematous right submandibular gland?. Pt reported that the duct stones had been surgically removed. Other PMHx includes: right septal deviation and sleep apnea. Pt is currently receiving ST targeting swallow function and speech intelligibility. ST also recommends Pt have a Modified Barium Swallow Study done to further analyze his swallow and to guide treatment. Subjective Observations Pt was seated in the fluoroscopy chair with directions and procedures described for him. He indicated he understood and agreed to proceed. Patient Positioning Position View Lat-A/P Imaging Lateral View Textures Administered Trials Presented Thin Liquid via Spoon (IDDSI 0 ),Thin Liquid via Cup (IDDSI 0 ),Extremely Thick Liquid via Spoon (IDDSI 4),Regular (IDDSI 7) Barium Tablet Yes The IDDSI Framework Protocol: IDDSI.1 Oral Impairment Source: The Modified Barium Swallow Impairment Profile (MBSImP??) Lip Closure No labial escape Tongue Control During Bolus Hold Cohesive bolus between tongue to palatal seal Bolus Preparation/Mastication Slow prolonged chewing/mashing with complete re-collection Bolus Transport/Lingual Motion Delayed initiation of tongue motion Oral Residue Complete oral clearance,Trace residue lining oral structures Location Tongue Initiation of Pharyngeal Swallow Bolus head at posterior laryngeal surface of epiglottis Additional Oral Impairment Observations *OME and DKS were observed slow with with reduced ROM Speech observed to be dysarthric. *Dentition natural and in good hygiene *Mastication observed to be slow and prolonged. *Good bolus formation, control and AP transition. * Mild delay of swallow initiation Oral phase of swallow observed to be mild to moderatly impaired for speech and mastication Pharyngeal Impairment Source: The Modified Barium Swallow Impairment Profile (MBSImP??) Soft Palate Elevation No bolus between soft palate & pharyngeal wall Laryngeal Elevation Part.sup.move.thyroid cart/ part.approx.arytenoids to epiglot.petiole Anterior Hyoid Excursion Partial anterior movement Epiglottic Movement Partial inversion Laryngeal Vestibular Closure Complete; no air/contrast in laryngeal vestibule Pharyngeal Stripping Wave Present - diminished Pharyngoesophageal Segment Opening Complete distention & complete duration; no obstruction of flow Tongue Base Retraction Wide column of contrast/air betwn tongue base & post. pharyngeal wall Pharyngeal Residue Collection of residue within/ on pharyngeal structures Location Diffuse (>3 areas) Additional Pharyngeal Impairment *Hamzah aspiration x1 without Observations reflexive cough (Penetration Aspiration Scale rating = 8 Below folds, no response or effort, tracheal residue *Laryngeal penetration observed PAS rating = 3 Penetrates larynx, above folds , visable laryngeal residue *Reduced base of tongue retraction *Reduced hyolaryngeal elevation and movement *Incomplete/partial inversion of epiglottis *Increased valecullar pooling noted for semi-solid and solid texture trials. Several swallow trials required to clear valeculla A/P View Textures Administered Trials Presented Thin Liquid via Cup (IDDSI 0) The IDDSI Framework Protocol: IDDSI.1 A/P View Observations Pharyngeal Contraction Complete Esophageal Clearance Upright Position Complete clearance; esophageal coating Vocal Fold Function Good Esophageal Function WFL Additional A-P Observations Thin liquid and calibrated barium tablet trials in AP: Both thin liquid and table were observed to clear the esophagus in a timely manner Clinical Impressions Dysphagia Type Oral,Pharyngeal Findings Mild-moderate oropharyngeal dysphagia. Reduced hyolaryngeal elevation/ movement with partial/ incomplete epiglottic inversion. Hamzah tracheal aspiration without reflexive cough observed. Laryngeal penetration noted as well. Pt is at risk for aspiration secondary to PD related muscle weakness and decreased ROM. Recommendation to continue ST/ NMES targeting improved base of tongue strength and ROM. Rehabilitation Potential Good Patient Appropriate for Therapy Yes Recommendations Diet Comments No diet changes recommended at this time Aspiration Precautions Recommended Precautions Upright at 90 Degrees,Frequent Rest Periods,Small Bites/Sips ,Chin Tuck Additional Precautions Chin tuck beneficial for consecutive swallow; effortful swallow Treatment Plan Therapy Recommendations Outpatient Speech Therapy,Base of Tongue Exercises Therapy Strategy Recommendations Sitting Upright (90 deg),Chin Tuck,Small Bites and Sips Placement Recommendation After Discharge Outpatient Therapy
== END ==
PROVIDERS: Family Provider Family Medicine; PCP Internal Medicine; Referring Provider Otolaryngology; Visit Provider Otolaryngology
DX: R13.10 Dysphagia, unspecified (principal); G20.A1 Parkinson's disease without dyskinesia, without mention of fluctuations
CPT/HCPCS: 74230; 92611

== ENCOUNTER 2024-06-23 14:30 | Outpatient (RCR) | payer MEDICARE, OTHER, SELFPAY ==
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
--- NOTE | 2024-05-10 12:13 | PT.OTN ---
Current Diagnoses Parkinson's disease without dyskinesia, with fluctuations (05/10/24) Physical Therapy Treatment Note PT-OP-A Visit Information Start: 04/28/24 07:48 Freq: Status: Active Protocol: Document 05/10/24 11:30 MB (Rec: 05/10/24 12:13 MB [id number]) Out-Patient Physical Therapy Visit Information Visit Information Visit Type Treatment Note Visit Note Medicare, 05/08 before KX is Shawna, pt goes by Jesse Progress note by 06/03/24 Visit Start Time 11:30 Visit Stop Time 12:10 Visit Number 2 Number of PROGRAM DIRECTOR AIR TALENT Visits 0 Evaluation Information Evaluation Date 05/03/24 Precautions Precautions Systolic BP drop on eval, keep an eye on BIG schedule and if space opens, consider moving him over PT-OP-B Current Condition Start: 04/28/24 07:48 Freq: Status: Active Protocol: Document 05/03/24 11:24 MB (Rec: 05/03/24 12:07 MB [id number]) Current Condition History of Current Condition Onset Date 2007 tremors left hand, now B Current Complaints Imbalance History of Current Condition Pt had speech therapy to work on swallowing d/t choking. Pt is getting primary care provider to help with alignment. Pt is biking on stationary bike 30 minutes every morning, weight lifting 3x/wk and occ biking outside. He fell off bike a year ago and broke his left thumb. He had trouble keeping his balance on his bike. Pt has 20 steps to enter home and uses a rail to get in home. 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 Pt is s/p DBS 11/07/19. He has a double DBS. He does not take any medications. Pt does not get light-headed when he gets up. He is just stiff when he gets up. Pt notices he bumps into things to the sides and forward. He tends to lean over to the right. Pt wears a support belt to help as well as compression undershirt. Pt drinks a lot in the morning including low caffeinated drinks. Treatment Goals Patient/Caregiver Goals To improve balance and work on standing up straight PT-OP-C Subjective Start: 04/28/24 07:48 Freq: Status: Active Protocol: Document 05/10/24 11:30 MB (Rec: 05/10/24 12:13 MB [id number]) OP-PT Subjective Patient Comments Patient Comments Pt feels sore from lifting. PT-OP-H Neuro Start: 04/28/24 07:48 Freq: Status: Active Protocol: Document 05/03/24 11:24 MB (Rec: 05/03/24 12:07 MB [id number]) Coordination Evaluation Upper Extremity Tests Left Finger to Nose Test Moderate Impairment Pronation/Supination Test Moderate Impairment Right Finger to Nose Test Minimal Impairment Pronation/Supination Test Minimal Impairment Lower Extremity Tests Left Alternate Heel to Knee; Heel to Toe Test Minimal Impairment Heel on Villegas Test Minimal Impairment Foot Tapping Test Minimal Impairment Right Alternate Heel to Knee; Heel to Toe Test Minimal Impairment Heel on Villegas Test Minimal Impairment Foot Tapping Test Minimal Impairment Vital Signs Comments Vital Signs Comments Orthostatic assessment with BP and HR in LUE: supine 152/82, 55; standing 136/68, 59; standing 1' 145/83, 62. PT-OP-K Range of Motion Start: 04/28/24 07:48 Freq: Status: Active Protocol: Document 05/03/24 11:24 MB (Rec: 05/03/24 12:07 MB [id number]) Finger Goniometric Range of Motion Finger ROM Limitations Comments L thumb has changes from old dislocation proximal phalanx and more recent fracture distal phalanx PT-OP-M Strength Start: 04/28/24 07:48 Freq: Status: Active Protocol: Document 05/03/24 11:24 MB (Rec: 05/03/24 12:07 MB [id number]) Shoulder Strength Shoulder Manual Muscle Testing Bilateral Flexion 5 Normal Elbow/Forearm Strength Elbow and Forearm Manual Muscle Testing Bilateral Extension (C7) 5 Normal Hip Strength Hip Manual Muscle Testing Bilateral Flexion (L2) 5 Normal Knee Strength Knee Manual Muscle Testing Bilateral Flexion (S2) 5 Normal Ankle/Foot Strength Ankle and Foot Manual Muscle Testing Bilateral Dorsiflexion (L4) 5 Normal Toe Strength Toe Manual Muscle Testing Left Great Toe Extension 5 Normal Right Great Toe Extension 5 Normal PT-OP-Q Treatments Start: 04/28/24 07:48 Freq: Status: Active Protocol: Document 05/10/24 11:30 MB (Rec: 05/10/24 12:13 MB [id number]) Gait Training Gait Activity Gait pattern and guille work Comments Pt is able to make guille a little more consistent and increase foot clearance and arm swing with cues today, consider using metronome in the future 6MWT Comments Pt gait trains 1629 feet in 6 minutes and he has increased scuffing left foot, increased Trendelenburg and lateral weight shift B, decreased arm swing on the left compared to right Neuro Re-Education Treatment Balance Activities [facility] dynamic balance activities Details HEP Comments Heel raise walking x5 reps, toe walking x5 reps: sliding hand along wall at balance beam, provided handouts FGA activities for home Comments Tried all of these dragging middle finger along the wall and pt is impulsive, fast and at high risk for falling all exercises d/t trouble controlling balance and speed and most trouble with backwards walking and pt requiring min A to CGA: forward walking, head turns right and left and up and down , gait with EC and walking backwards FGA Comments Pt's gait is uncontrolled as far as slowing and speeding up and scuffing feet, he has a strong step strategy with gait . FGA score is: 9/30, indicating increased risk for falling PT-OP-T Assessment and Plan Start: 04/28/24 07:48 Freq: Status: Active Protocol: Document 05/10/24 11:30 MB (Rec: 05/10/24 12:13 MB [id number]) Physical Therapy Assessment Rehab Potential Rehabilitation Potential Good Evaluation Complexity Number of Personal Factors/Comorbidities 1-2 Number of Body Systems Impaired 3 Clinical Presentation at Evaluation Evolving Impairments Impairments Activity Tolerance,Balance, Coordination,Functional Activities,Functional Mobility ,Gait,Pain,Posture,ROM,Soft Tissue Mobility,Strength, Transfers Goals 3 Impairment Lack of HEP Long-Term Goal (LTG) Pt will perform progressive HEP with I including balance, amplitude enhancement, LE and gait exercises to improve overall functional mobility. LTG Duration 8 weeks 2 Impairment Evidence of imbalance Group Burner Machine Goal (LTG) Pt will perform WNLs on FGA to decrease fall risk. LTG Duration 8 weeks 1 Impairment Impaired gait Long-Term Goal (LTG) Pt will gait train at least 1716 feet in 6 minutes with improved B arm swing and foot clearance to improve community ambulation. LTG Duration 8 weeks Assessment Summary Assessment Pt's gait is uncontrolled as far as slowing and speeding up and scuffing feet, he has a strong step strategy with gait . May benefit from metronome training with guille in the future. FGA activities for home were too unsafe and PT did not give today. Pt has some uncontrolled quickness, impulsivity and decreased safety awareness. Able to add [place] heel and toe walking with pt sliding one hand along counter at home. Physical Therapy Plan Frequency and Duration Frequency of Treatment 2x-4x/wk Duration of treatment (weeks) 8 Plan of Care Start Date 05/03/24 Plan of Care End Date 07/01/24 Therapeutic Interventions Therapeutic Interventions Balance Training,Canalithic Repositioning,Coordination Training,Gait Training,Home Exercise Program,Joint Mobilizations,Neuromuscular Re -education,Patient/Caregiver Education,Self-Care/Home Management,Soft Tissue Mobilization,Taping, Therapeutic Activities, Therapeutic Exercises Modalities Cold Pack/Ice Massage,Electric Stimulation,Hot Packs, Ultrasound Other Therapeutic Interventions Teach TENS use to help with neurogenic bladder (protocol) Next Visit Focus/Plan Next Note Type Treatment Note Next Visit Plan Consider gait training with metronome to help speed/ impulsive presentation with gait Initiate amplitude specific HEP and video therapist on phone for pt referral rather than handouts, further [place] progression Transfer to BIG slots when available TENS training tibial nerve for neurogenic bladder with primary PT in future treatment
--- NOTE | 2024-05-13 12:16 | PT.OTN ---
Current Diagnoses Parkinson's disease without dyskinesia, with fluctuations (05/13/24) Physical Therapy Treatment Note PT-OP-A Visit Information Start: 04/28/24 07:48 Freq: Status: Active Protocol: Document 05/13/24 11:36 SP (Rec: 05/13/24 12:33 SP [id number]) Out-Patient Physical Therapy Visit Information Visit Information Visit Type Treatment Note Visit Note Medicare, 05/08 before KX is Shawna, pt goes by Jesse Progress note by 06/03/24 Visit Start Time 11:36 Visit Stop Time 12:16 Visit Number 3 Number of SURVEY CREW CHIEF Visits 1 Evaluation Information Evaluation Date 05/03/24 Precautions Precautions Systolic BP drop on eval, keep an eye on BIG schedule and if space opens, consider moving him over PT-OP-B Current Condition Start: 04/28/24 07:48 Freq: Status: Active Protocol: Document 05/03/24 11:24 MB (Rec: 05/03/24 12:07 MB [id number]) Current Condition History of Current Condition Onset Date 2007 tremors left hand, now B Current Complaints Imbalance History of Current Condition Pt had speech therapy to work on swallowing d/t choking. Pt is getting wound care technician to help with alignment. Pt is biking on stationary bike 30 minutes every morning, weight lifting 3x/wk and occ biking outside. He fell off bike a year ago and broke his left thumb. He had trouble keeping his balance on his bike. Pt has 20 steps to enter home and uses a rail to get in home. 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 Pt is s/p DBS 11/07/19. He has a double DBS. He does not take any medications. Pt does not get light-headed when he gets up. He is just stiff when he gets up. Pt notices he bumps into things to the sides and forward. He tends to lean over to the right. Pt wears a support belt to help as well as compression undershirt. Pt drinks a lot in the morning including low caffeinated drinks. Treatment Goals Patient/Caregiver Goals To improve balance and work on standing up straight PT-OP-C Subjective Start: 04/28/24 07:48 Freq: Status: Active Protocol: Document 05/13/24 11:36 SP (Rec: 05/13/24 12:33 SP [id number]) OP-PT Subjective Patient Comments Patient Comments Pt arrives with spouse and granddaughter to video tape ex for home carryover. He rreports did well after last tx. reports pt rides stationary bike upright 30 min with quck pace every 20 sec regular speed, then 10 sec speed then progresses set increase speed longer up to 30 sec. Walking ouside then jogs occasional between light posts. PT-OP-H Neuro Start: 04/28/24 07:48 Freq: Status: Active Protocol: Document 05/03/24 11:24 MB (Rec: 05/03/24 12:07 MB [id number]) Coordination Evaluation Upper Extremity Tests Left Finger to Nose Test Moderate Impairment Pronation/Supination Test Moderate Impairment Right Finger to Nose Test Minimal Impairment Pronation/Supination Test Minimal Impairment Lower Extremity Tests Left Alternate Heel to Knee; Heel to Toe Test Minimal Impairment Heel on Villegas Test Minimal Impairment Foot Tapping Test Minimal Impairment Right Alternate Heel to Knee; Heel to Toe Test Minimal Impairment Heel on Villegas Test Minimal Impairment Foot Tapping Test Minimal Impairment Vital Signs Comments Vital Signs Comments Orthostatic assessment with BP and HR in LUE: supine 152/82, 55; standing 136/68, 59; standing 1' 145/83, 62. PT-OP-K Range of Motion Start: 04/28/24 07:48 Freq: Status: Active Protocol: Document 05/03/24 11:24 MB (Rec: 05/03/24 12:07 MB [id number]) Finger Goniometric Range of Motion Finger ROM Limitations Comments L thumb has changes from old dislocation proximal phalanx and more recent fracture distal phalanx PT-OP-M Strength Start: 04/28/24 07:48 Freq: Status: Active Protocol: Document 05/03/24 11:24 MB (Rec: 05/03/24 12:07 MB [id number]) Shoulder Strength Shoulder Manual Muscle Testing Bilateral Flexion 5 Normal Elbow/Forearm Strength Elbow and Forearm Manual Muscle Testing Bilateral Extension (C7) 5 Normal Hip Strength Hip Manual Muscle Testing Bilateral Flexion (L2) 5 Normal Knee Strength Knee Manual Muscle Testing Bilateral Flexion (S2) 5 Normal Ankle/Foot Strength Ankle and Foot Manual Muscle Testing Bilateral Dorsiflexion (L4) 5 Normal Toe Strength Toe Manual Muscle Testing Left Great Toe Extension 5 Normal Right Great Toe Extension 5 Normal PT-OP-Q Treatments Start: 04/28/24 07:48 Freq: Status: Active Protocol: Document 05/13/24 11:36 SP (Rec: 05/13/24 12:33 SP [id number]) Therapeutic Exercises Sitting Exercises OTAGO STS Sitting Exercise Name added toHEP /c HO Standing Exercises [place] Heel raises Standing Exercise Name added to HEP /c HO Resistance AROM Equipment Used rail support Reps/Minutes x30 Comments good form OTAGO MiniSquat Standing Exercise Name added to HEP /c HO Equipment Used rail support as needed Reps/Minutes 30 reps alternating Comments cue not have to do deep squats (pt reports does deep /c 20# DB into OH std) OTAGO Abduction Standing Exercise Name added to HEP /c HO Resistance 2# leg wt Equipment Used rail support Reps/Minutes 30 reps alternating Comments cued slower not as high, elongate posture OTAGO HS CURL Standing Exercise Name added to HEP /c HO Resistance 2# leg wt Equipment Used rail support Reps/Minutes 30 reps alternating Comments good form Neuro Re-Education Treatment Balance Activities OTAGO SLS Details added to HEP /c HO- nearby home Surface floor Reps/Duration facing rail best Comments R ft 5, 7 L ft 8, 8 Before LOB, forget grab bar but other leg touch floor andMin A recovery. cued tall, rhomboid & TA engagement safety bal improves 2nd rep OTAGO tandem Details added to HEP/c HO- nearby home Surface floor Comments R ft fwd 44 sec L ft fwd 35 sec Near rail [place] dynamic balance activities Details HEP Comments Heel raise walking 10steps fwd , toe walking x10 steps fwd near rail not need use; tandem walking fwd, regular walking backward 10 steps- discussed in PT at this time PT-OP-T Assessment and Plan Start: 04/28/24 07:48 Freq: Status: Active Protocol: Document 05/13/24 11:36 SP (Rec: 05/13/24 12:33 SP [id number]) Physical Therapy Assessment Goals 3 Impairment Lack of HEP Nursing Home Goal (LTG) Pt will perform progressive HEP with I including balance, amplitude enhancement, LE and gait exercises to improve overall functional mobility. LTG Duration 8 weeks 2 Impairment Evidence of imbalance Staff Appraiser Goal (LTG) Pt will perform WNLs on FGA to decrease fall risk. LTG Duration 8 weeks 1 Impairment Impaired gait Nursing Home Goal (LTG) Pt will gait train at least 1716 feet in 6 minutes with improved B arm swing and foot clearance to improve community ambulation. LTG Duration 8 weeks Assessment Summary Assessment Pt good response to progressed [place] resisted ex able perform 30 reps LEs, 10 reps STS/squats, cues as needed, SLS and tandem stance improves with cues tall/rhomboid/TA, facing rail support and suggested nearby for safety. took videos of HEP/cues/advice given for safety performance carryover home. Improved heel and toe walking no LOB or contact rail needed. Initiated in PT only tandem walking, regular walking, challenging intitally but finger glide helped less contact with 2nd set. Discused bike home doing ok. PT will touch back walk/jog next tx. Physical Therapy Plan Frequency and Duration Frequency of Treatment 2x-4x/wk Duration of treatment (weeks) 8 Plan of Care Start Date 05/03/24 Plan of Care End Date 07/01/24 Therapeutic Interventions Therapeutic Interventions Balance Training,Canalithic Repositioning,Coordination Training,Gait Training,Home Exercise Program,Joint Mobilizations,Neuromuscular Re -education,Patient/Caregiver Education,Self-Care/Home Management,Soft Tissue Mobilization,Taping, Therapeutic Activities, Therapeutic Exercises Modalities Cold Pack/Ice Massage,Electric Stimulation,Hot Packs, Ultrasound Other Therapeutic Interventions Teach TENS use to help with neurogenic bladder (protocol) Next Visit Focus/Plan Next Note Type Treatment Note Next Visit Plan Recheck dynamic walking, OTAGO HEP. NExt Consider gait training with metronome to help speed/ impulsive presentation with gait Initiate amplitude specific HEP and video therapist on phone for pt referral rather than handouts, further [place] progression Transfer to BIG slots when available TENS training tibial nerve for neurogenic bladder with primary PT in future treatment
--- NOTE | 2024-05-17 12:13 | PT.OTN ---
Current Diagnoses Parkinson's disease without dyskinesia, with fluctuations (05/17/24) Physical Therapy Treatment Note PT-OP-A Visit Information Start: 04/28/24 07:48 Freq: Status: Active Protocol: Document 05/17/24 11:34 MB (Rec: 05/17/24 12:13 MB [id number]) Out-Patient Physical Therapy Visit Information Visit Information Visit Type Treatment Note Visit Note Medicare, 08/06 before KX is Shawna, pt goes by Jesse Progress note by 06/03/24 Visit Start Time 11:34 Visit Stop Time 12:14 Visit Number 4 Number of LEAD REFINER Visits 0 Evaluation Information Evaluation Date 05/03/24 Precautions Precautions Systolic BP drop on eval, keep an eye on BIG schedule and if space opens, consider moving him over PT-OP-B Current Condition Start: 04/28/24 07:48 Freq: Status: Active Protocol: Document 05/03/24 11:24 MB (Rec: 05/03/24 12:07 MB [id number]) Current Condition History of Current Condition Onset Date 2007 tremors left hand, now B Current Complaints Imbalance History of Current Condition Pt had speech therapy to work on swallowing d/t choking. Pt is getting health care coach to help with alignment. Pt is biking on stationary bike 30 minutes every morning, weight lifting 3x/wk and occ biking outside. He fell off bike a year ago and broke his left thumb. He had trouble keeping his balance on his bike. Pt has 20 steps to enter home and uses a rail to get in home. 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 Pt is s/p DBS 11/07/19. He has a double DBS. He does not take any medications. Pt does not get light-headed when he gets up. He is just stiff when he gets up. Pt notices he bumps into things to the sides and forward. He tends to lean over to the right. Pt wears a support belt to help as well as compression undershirt. Pt drinks a lot in the morning including low caffeinated drinks. Treatment Goals Patient/Caregiver Goals To improve balance and work on standing up straight PT-OP-C Subjective Start: 04/28/24 07:48 Freq: Status: Active Protocol: Document 05/17/24 11:34 MB (Rec: 05/17/24 12:13 MB [id number]) OP-PT Subjective Patient Comments Patient Comments Pt was able to get schedule in the next LSVT BIG slot and so will transition to BIG exercises. He likes to lift and do his abdominal exercises . PT-OP-H Neuro Start: 04/28/24 07:48 Freq: Status: Active Protocol: Document 05/03/24 11:24 MB (Rec: 05/03/24 12:07 MB [id number]) Coordination Evaluation Upper Extremity Tests Left Finger to Nose Test Moderate Impairment Pronation/Supination Test Moderate Impairment Right Finger to Nose Test Minimal Impairment Pronation/Supination Test Minimal Impairment Lower Extremity Tests Left Alternate Heel to Knee; Heel to Toe Test Minimal Impairment Heel on Villegas Test Minimal Impairment Foot Tapping Test Minimal Impairment Right Alternate Heel to Knee; Heel to Toe Test Minimal Impairment Heel on Villegas Test Minimal Impairment Foot Tapping Test Minimal Impairment Vital Signs Comments Vital Signs Comments Orthostatic assessment with BP and HR in LUE: supine 152/82, 55; standing 136/68, 59; standing 1' 145/83, 62. PT-OP-K Range of Motion Start: 04/28/24 07:48 Freq: Status: Active Protocol: Document 05/03/24 11:24 MB (Rec: 05/03/24 12:07 MB [id number]) Finger Goniometric Range of Motion Finger ROM Limitations Comments L thumb has changes from old dislocation proximal phalanx and more recent fracture distal phalanx PT-OP-M Strength Start: 04/28/24 07:48 Freq: Status: Active Protocol: Document 05/03/24 11:24 MB (Rec: 05/03/24 12:07 MB [id number]) Shoulder Strength Shoulder Manual Muscle Testing Bilateral Flexion 5 Normal Elbow/Forearm Strength Elbow and Forearm Manual Muscle Testing Bilateral Extension (C7) 5 Normal Hip Strength Hip Manual Muscle Testing Bilateral Flexion (L2) 5 Normal Knee Strength Knee Manual Muscle Testing Bilateral Flexion (S2) 5 Normal Ankle/Foot Strength Ankle and Foot Manual Muscle Testing Bilateral Dorsiflexion (L4) 5 Normal Toe Strength Toe Manual Muscle Testing Left Great Toe Extension 5 Normal Right Great Toe Extension 5 Normal PT-OP-Q Treatments Start: 04/28/24 07:48 Freq: Status: Active Protocol: Document 05/17/24 11:34 MB (Rec: 05/17/24 12:13 MB [id number]) Therapeutic Exercises Sitting Exercises BIG sit to stand Equipment Used BIG chair Reps/Minutes 10 reps Comments Cues to count, smoother movement with practice BIG side to side Equipment Used BIG chair Reps/Minutes 5 reps to each side Comments Cues to scoop under with hand to count BIG floor to ceiling Equipment Used BIG chair Reps/Minutes 8 Comments Cues for BIG left hand, count out loud to 10 Standing Exercises Sideways rock and reach Standing Exercise Name Practice next treatment BIG rock and reach Standing Exercise Name Pt tends to get rigid in neck and arms Reps/Minutes 10 reps each side Comments Cues for big front toe and big back heel, rocking with knees soft BIG backwards step Standing Exercise Name LOB and dysmetria with this Reps/Minutes 5 reps each side Comments Lots of practic with this one, gait belt and occ min A BIG side step Standing Exercise Name Tends to be rigid with slapping legs, loose balance with stepping Reps/Minutes 10 reps to each side Comments Cues to look where step and bring head back to center BIG forward step Reps/Minutes 10 reps to each side Comments 1 foot at a time, more imbalance with left stepping, cues to count and slap PT-OP-T Assessment and Plan Start: 04/28/24 07:48 Freq: Status: Active Protocol: Document 05/17/24 11:34 MB (Rec: 05/17/24 12:13 [id number]) Physical Therapy Assessment Rehab Potential Rehabilitation Potential Good Evaluation Complexity Number of Personal Factors/Comorbidities 1-2 Number of Body Systems Impaired 3 Clinical Presentation at Evaluation Evolving Impairments Impairments Activity Tolerance,Balance, Coordination,Functional Activities,Functional Mobility ,Gait,Pain,Posture,ROM,Soft Tissue Mobility,Strength, Transfers Goals 3 Impairment Lack of HEP Usp Goal (LTG) Pt will perform progressive HEP with I including balance, amplitude enhancement, LE and gait exercises to improve overall functional mobility. LTG Duration 8 weeks 2 Impairment Evidence of imbalance Usp Goal (LTG) Pt will perform WNLs on FGA to decrease fall risk. LTG Duration 8 weeks 1 Impairment Impaired gait Lead Radiologic Technologist Goal (LTG) Pt will gait train at least 1716 feet in 6 minutes with improved B arm swing and foot clearance to improve community ambulation. LTG Duration 8 weeks Assessment Summary Assessment Initiated LSVT BIG exercises today and pt makes a great effort. He tends to become rigid in UEs and neck and trunk, left hand when he is imbalanced. Start with backwards step and sideways rock and reach. Physical Therapy Plan Frequency and Duration Frequency of Treatment 2x-4x/wk Duration of treatment (weeks) 8 Plan of Care Start Date 05/03/24 Plan of Care End Date 07/01/24 Therapeutic Interventions Therapeutic Interventions Balance Training,Canalithic Repositioning,Coordination Training,Gait Training,Home Exercise Program,Joint Mobilizations,Neuromuscular Re -education,Patient/Caregiver Education,Self-Care/Home Management,Soft Tissue Mobilization,Taping, Therapeutic Activities, Therapeutic Exercises Modalities Cold Pack/Ice Massage,Electric Stimulation,Hot Packs, Ultrasound Other Therapeutic Interventions Teach TENS use to help with neurogenic bladder (protocol) Next Visit Focus/Plan Next Note Type Treatment Note Next Visit Plan Consider gait training with metronome for speed and accuracy, d/c [place] and con't BIG exercises--start with sideways rock and reach and backwards step TENS training tibial nerve for neurogenic bladder with primary PT in future treatment
--- NOTE | 2024-05-20 12:20 | PT.OTN ---
Current Diagnoses Parkinson's disease without dyskinesia, with fluctuations (05/20/24) Physical Therapy Treatment Note PT-OP-A Visit Information Start: 04/28/24 07:48 Freq: Status: Active Protocol: Document 05/20/24 11:35 SP (Rec: 05/20/24 12:31 SP [id number]) Out-Patient Physical Therapy Visit Information Visit Information Visit Type Treatment Note Visit Note Medicare, 08/06 before KX is Shawna, pt goes by Jesse Progress note by 06/03/24 Visit Start Time 11:35 Visit Stop Time 12:20 Visit Number 5 Number of AIRPORT SKILLED MAINTENANCE SUPERVISOR Visits 1 Evaluation Information Evaluation Date 05/03/24 Precautions Precautions Systolic BP drop on eval, keep an eye on BIG schedule and if space opens, consider moving him over PT-OP-B Current Condition Start: 04/28/24 07:48 Freq: Status: Active Protocol: Document 05/03/24 11:24 MB (Rec: 05/03/24 12:07 MB [id number]) Current Condition History of Current Condition Onset Date 2007 tremors left hand, now B Current Complaints Imbalance History of Current Condition Pt had speech therapy to work on swallowing d/t choking. Pt is getting care coordinator to help with alignment. Pt is biking on stationary bike 30 minutes every morning, weight lifting 3x/wk and occ biking outside. He fell off bike a year ago and broke his left thumb. He had trouble keeping his balance on his bike. Pt has 20 steps to enter home and uses a rail to get in home. 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 Pt is s/p DBS 11/07/19. He has a double DBS. He does not take any medications. Pt does not get light-headed when he gets up. He is just stiff when he gets up. Pt notices he bumps into things to the sides and forward. He tends to lean over to the right. Pt wears a support belt to help as well as compression undershirt. Pt drinks a lot in the morning including low caffeinated drinks. Treatment Goals Patient/Caregiver Goals To improve balance and work on standing up straight PT-OP-C Subjective Start: 04/28/24 07:48 Freq: Status: Active Protocol: Document 05/20/24 11:35 SP (Rec: 05/20/24 12:31 SP [id number]) OP-PT Subjective Patient Comments Patient Comments Pt reports felt pretty good after last tx, I felt more stretch out. PT-OP-H Neuro Start: 04/28/24 07:48 Freq: Status: Active Protocol: Document 05/03/24 11:24 MB (Rec: 05/03/24 12:07 MB [id number]) Coordination Evaluation Upper Extremity Tests Left Finger to Nose Test Moderate Impairment Pronation/Supination Test Moderate Impairment Right Finger to Nose Test Minimal Impairment Pronation/Supination Test Minimal Impairment Lower Extremity Tests Left Alternate Heel to Knee; Heel to Toe Test Minimal Impairment Heel on Villegas Test Minimal Impairment Foot Tapping Test Minimal Impairment Right Alternate Heel to Knee; Heel to Toe Test Minimal Impairment Heel on Villegas Test Minimal Impairment Foot Tapping Test Minimal Impairment Vital Signs Comments Vital Signs Comments Orthostatic assessment with BP and HR in LUE: supine 152/82, 55; standing 136/68, 59; standing 1' 145/83, 62. PT-OP-K Range of Motion Start: 04/28/24 07:48 Freq: Status: Active Protocol: Document 05/03/24 11:24 MB (Rec: 05/03/24 12:07 MB [id number]) Finger Goniometric Range of Motion Finger ROM Limitations Comments L thumb has changes from old dislocation proximal phalanx and more recent fracture distal phalanx PT-OP-M Strength Start: 04/28/24 07:48 Freq: Status: Active Protocol: Document 05/03/24 11:24 MB (Rec: 05/03/24 12:07 MB [id number]) Shoulder Strength Shoulder Manual Muscle Testing Bilateral Flexion 5 Normal Elbow/Forearm Strength Elbow and Forearm Manual Muscle Testing Bilateral Extension (C7) 5 Normal Hip Strength Hip Manual Muscle Testing Bilateral Flexion (L2) 5 Normal Knee Strength Knee Manual Muscle Testing Bilateral Flexion (S2) 5 Normal Ankle/Foot Strength Ankle and Foot Manual Muscle Testing Bilateral Dorsiflexion (L4) 5 Normal Toe Strength Toe Manual Muscle Testing Left Great Toe Extension 5 Normal Right Great Toe Extension 5 Normal PT-OP-Q Treatments Start: 04/28/24 07:48 Freq: Status: Active Protocol: Document 05/20/24 11:35 SP (Rec: 05/20/24 12:31 SP [id number]) Therapeutic Exercises Sitting Exercises BIG sit to stand Equipment Used BIG chair Reps/Minutes 10 reps Comments Cues to count, smoother movement with practice BIG side to side Sitting Exercise Name Alternated sides today. Equipment Used BIG chair Reps/Minutes 10 reps alternating Comments Cues feet return to start pos, leg back fully BIG floor to ceiling Equipment Used BIG chair Reps/Minutes 10 reps 10 SH Comments Cues for BIG left hand, count out loud to 10 Standing Exercises Sideways rock and reach Equipment Used front of mirror (gait belt Min A) Reps/Minutes 5 reps each side Comments pizza hands out to side, pivot back leg, trunk rotation slower BIG rock and reach Standing Exercise Name Pt tends to get rigid in neck and arms- cued fluid glide Equipment Used - slower pacing for proper form at this time Reps/Minutes 10 reps each side Comments Cues for big front toe/ big back heel/ rocking with knees soft/ inc WBOS BIG backwards step Standing Exercise Name LOB and dysmetria with this Equipment Used Lots of practic with this one, gait belt and occ 5% A- Reps/Minutes 10 reps each side Comments smaller step back, hip hinge fwd, toe up, arms back BIG side step Standing Exercise Name Tends to be rigid with slapping legs, loose balance with stepping Reps/Minutes 10 reps to each side Comments Cues to look where step smaller step BIG forward step Reps/Minutes 10 reps to each side Comments 1 foot at a time, more balanced if stomp front and return step, smaller fwd Gait Training Gait Activity Gait pattern and guille work Description BIG Walking: Metronome 101 best Distance/Duration hallway 3 laps Comments Improved more consistent and increase foot clearance and arm swing with cues today, cues lessen stride length better trunk over PAULA lateral stability. Included BIG turns Manual Therapy Treatment Consent Patient gave verbal consent for manual Yes treatment PT-OP-T Assessment and Plan Start: 04/28/24 07:48 Freq: Status: Active Protocol: Document 05/20/24 11:35 SP (Rec: 05/20/24 12:31 SP [id number]) Physical Therapy Assessment Goals 3 Impairment Lack of HEP Correction Goal (LTG) Pt will perform progressive HEP with I including balance, amplitude enhancement, LE and gait exercises to improve overall functional mobility. LTG Duration 8 weeks 2 Impairment Evidence of imbalance Entrepreneurial Finance Professor Goal (LTG) Pt will perform WNLs on FGA to decrease fall risk. LTG Duration 8 weeks 1 Impairment Impaired gait Entrepreneurial Finance Professor Goal (LTG) Pt will gait train at least 1716 feet in 6 minutes with improved B arm swing and foot clearance to improve community ambulation. LTG Duration 8 weeks Assessment Summary Assessment Progressed LSVT BIG exercises with good effort. Cues smaller step length and mindful PAULA for stability and not excessive momentum during standing exercises for safety stabiltiy. CHallenging for back step and side rock and reach, slower pacing needed and Min A for safety. DIscussed doing in PT only for now. Initiated Metronome BIG Walking 101bpm, cued decreased stride improved stability including BIG turns and arm swing better guille.. Physical Therapy Plan Frequency and Duration Frequency of Treatment 2x-4x/wk Duration of treatment (weeks) 8 Plan of Care Start Date 05/03/24 Plan of Care End Date 07/01/24 Therapeutic Interventions Therapeutic Interventions Balance Training,Canalithic Repositioning,Coordination Training,Gait Training,Home Exercise Program,Joint Mobilizations,Neuromuscular Re -education,Patient/Caregiver Education,Self-Care/Home Management,Soft Tissue Mobilization,Taping, Therapeutic Activities, Therapeutic Exercises Modalities Cold Pack/Ice Massage,Electric Stimulation,Hot Packs, Ultrasound Other Therapeutic Interventions Teach TENS use to help with neurogenic bladder (protocol) Next Visit Focus/Plan Next Note Type Treatment Note Next Visit Plan Consider gait training with metronome for speed 101 bpm and accuracy, -start with sideways rock and reach and backwards step TENS training tibial nerve for neurogenic bladder with primary PT in future treatment
--- NOTE | 2024-05-24 09:38 | PT.OPPOC ---
Physical, Occupational & Speech Therapy At [facility] Current Diagnoses Parkinson's disease without dyskinesia, with fluctuations (05/24/24) Visit Care Team Role Provider Type Sony Meléndez MD Primary Care Provider Non-Staff Specialty: Internal Medicine Address: [address], [place], [address] Email: David Fan MD Family Provider Non-Staff Specialty: Medical Address: [address], [place], [address] Email: Sixto Zamora DO Attending Provider Non-Staff Referring Provider Specialty: Psychiatry Address: [address] [place], [address] Email: Plan Of Care PT-OP-B Current Condition Start: 04/28/24 07:48 Freq: Status: Active Protocol: Document 05/03/24 11:24 MB (Rec: 05/03/24 12:07 MB [id number]) Current Condition History of Current Condition Onset Date 2007 tremors left hand, now B Current Complaints Imbalance History of Current Condition Pt had speech therapy to work on swallowing d/t choking. Pt is getting career developer to help with alignment. Pt is biking on stationary bike 30 minutes every morning, weight lifting 3x/wk and occ biking outside. He fell off bike a year ago and broke his left thumb. He had trouble keeping his balance on his bike. Pt has 20 steps to enter home and uses a rail to get in home. Pt has a shop at the house and does part-time upOrdorory work in cars. Pt is s/p DBS 11/07/19. He has a double DBS. He does not take any medications. Pt does not get light-headed when he gets up. He is just stiff when he gets up. Pt notices he bumps into things to the sides and forward. He tends to lean over to the right. Pt wears a support belt to help as well as compression undershirt. Pt drinks a lot in the morning including low caffeinated drinks. Treatment Goals Patient/Caregiver Goals To improve balance and work on standing up straight PT-OP-T Assessment and Plan Start: 04/28/24 07:48 Freq: Status: Active Protocol: Document 05/24/24 08:56 MB (Rec: 05/24/24 09:36 MB [id number]) Physical Therapy Assessment Rehab Potential Rehabilitation Potential Good Evaluation Complexity Number of Personal Factors/Comorbidities 1-2 Number of Body Systems Impaired 3 Clinical Presentation at Evaluation Evolving Impairments Impairments Activity Tolerance,Balance, Coordination,Functional Activities,Functional Mobility ,Gait,Pain,Posture,ROM,Soft Tissue Mobility,Strength, Transfers Goals 3 Impairment Lack of HEP Package Center Supervisor Goal (LTG) Pt will perform progressive HEP with I including balance, amplitude enhancement, LE and gait exercises to improve overall functional mobility. LTG Duration 8 weeks 2 Impairment Evidence of imbalance Package Center Supervisor Goal (LTG) Pt will perform WNLs on FGA to decrease fall risk. LTG Duration 8 weeks 1 Impairment Impaired gait Long-Term Goal (LTG) Pt will gait train at least 1716 feet in 6 minutes with improved B arm swing and foot clearance to improve community ambulation. LTG Duration 8 weeks Assessment Summary Assessment Held teaching neurogenic bladder protocol with TENS today d/t pt with DBS and will need to talk with the doctor who is managing this, who is referring provider Sixto Zamora , per pt. PT will call. Extensive practice on backwards step and side rock and reach today. Physical Therapy Plan Frequency and Duration Frequency of Treatment 2x-4x/wk Duration of treatment (weeks) 8 Plan of Care Start Date 05/03/24 Plan of Care End Date 07/01/24 Therapeutic Interventions Therapeutic Interventions Balance Training,Canalithic Repositioning,Coordination Training,Gait Training,Home Exercise Program,Joint Mobilizations,Neuromuscular Re -education,Patient/Caregiver Education,Self-Care/Home Management,Soft Tissue Mobilization,Taping, Therapeutic Activities, Therapeutic Exercises Modalities Cold Pack/Ice Massage,Electric Stimulation,Hot Packs, Ultrasound Next Visit Focus/Plan Next Note Type Treatment Note Next Visit Plan Con't per plan: ongoing LSVT BIG exercises, consider gait training with metronome for speed 101 bpm and accuracy Plan of Care Dates Plan of Care Start Date 05/03/24 Plan of Care End Date 07/01/24 Electronically Signed by: Chelsy Hughes, PT 05/24/24 0926 If you are in agreement with this Plan of Care, please return a signed and dated copy. I have reviewed this Plan of Care and certify that the skilled therapy services above are required to meet the patient?s needs. Physician Signature Date Printed Name and Credentials Clinical Instructor Signature Printed Name and Credentials
--- NOTE | 2024-05-24 09:38 | PT.OTN ---
Current Diagnoses Parkinson's disease without dyskinesia, with fluctuations (05/24/24) Physical Therapy Treatment Note PT-OP-A Visit Information Start: 04/28/24 07:48 Freq: Status: Active Protocol: Document 05/24/24 08:56 MB (Rec: 05/24/24 09:36 MB [id number]) Out-Patient Physical Therapy Visit Information Visit Information Visit Type Treatment Note Visit Note Medicare, 10/06 before KX is Shawna, pt goes by Jesse Progress note by 06/03/24 Visit Start Time 08:56 Visit Stop Time 09:36 Visit Number 6 Number of MOLD WASHER Visits 0 Evaluation Information Evaluation Date 05/03/24 Precautions Precautions Systolic BP drop on eval and pt has DBS and so cannot teach TENS neurogenic bladder protocol unless cleared by doctor and PT to call PT-OP-B Current Condition Start: 04/28/24 07:48 Freq: Status: Active Protocol: Document 05/03/24 11:24 MB (Rec: 05/03/24 12:07 MB [id number]) Current Condition History of Current Condition Onset Date 2007 tremors left hand, now B Current Complaints Imbalance History of Current Condition Pt had speech therapy to work on swallowing d/t choking. Pt is getting respiratory care specialist to help with alignment. Pt is biking on stationary bike 30 minutes every morning, weight lifting 3x/wk and occ biking outside. He fell off bike a year ago and broke his left thumb. He had trouble keeping his balance on his bike. Pt has 20 steps to enter home and uses a rail to get in home. 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 Pt is s/p DBS 11/07/19. He has a double DBS. He does not take any medications. Pt does not get light-headed when he gets up. He is just stiff when he gets up. Pt notices he bumps into things to the sides and forward. He tends to lean over to the right. Pt wears a support belt to help as well as compression undershirt. Pt drinks a lot in the morning including low caffeinated drinks. Treatment Goals Patient/Caregiver Goals To improve balance and work on standing up straight PT-OP-C Subjective Start: 04/28/24 07:48 Freq: Status: Active Protocol: Document 05/24/24 08:56 MB (Rec: 05/24/24 09:36 MB [id number]) OP-PT Subjective Patient Comments Patient Comments Pt has no new reports. PT-OP-H Neuro Start: 04/28/24 07:48 Freq: Status: Active Protocol: Document 05/03/24 11:24 MB (Rec: 05/03/24 12:07 MB [id number]) Coordination Evaluation Upper Extremity Tests Left Finger to Nose Test Moderate Impairment Pronation/Supination Test Moderate Impairment Right Finger to Nose Test Minimal Impairment Pronation/Supination Test Minimal Impairment Lower Extremity Tests Left Alternate Heel to Knee; Heel to Toe Test Minimal Impairment Heel on Villegas Test Minimal Impairment Foot Tapping Test Minimal Impairment Right Alternate Heel to Knee; Heel to Toe Test Minimal Impairment Heel on Villegas Test Minimal Impairment Foot Tapping Test Minimal Impairment Vital Signs Comments Vital Signs Comments Orthostatic assessment with BP and HR in LUE: supine 152/82, 55; standing 136/68, 59; standing 1' 145/83, 62. PT-OP-K Range of Motion Start: 04/28/24 07:48 Freq: Status: Active Protocol: Document 05/03/24 11:24 MB (Rec: 05/03/24 12:07 MB [id number]) Finger Goniometric Range of Motion Finger ROM Limitations Comments L thumb has changes from old dislocation proximal phalanx and more recent fracture distal phalanx PT-OP-M Strength Start: 04/28/24 07:48 Freq: Status: Active Protocol: Document 05/03/24 11:24 MB (Rec: 05/03/24 12:07 MB [id number]) Shoulder Strength Shoulder Manual Muscle Testing Bilateral Flexion 5 Normal Elbow/Forearm Strength Elbow and Forearm Manual Muscle Testing Bilateral Extension (C7) 5 Normal Hip Strength Hip Manual Muscle Testing Bilateral Flexion (L2) 5 Normal Knee Strength Knee Manual Muscle Testing Bilateral Flexion (S2) 5 Normal Ankle/Foot Strength Ankle and Foot Manual Muscle Testing Bilateral Dorsiflexion (L4) 5 Normal Toe Strength Toe Manual Muscle Testing Left Great Toe Extension 5 Normal Right Great Toe Extension 5 Normal PT-OP-Q Treatments Start: 04/28/24 07:48 Freq: Status: Active Protocol: Document 05/24/24 08:56 MB (Rec: 05/24/24 09:36 MB [id number]) Therapeutic Exercises Standing Exercises Sideways rock and reach Standing Exercise Name Cues to pivot on back toe only and that moves him around Equipment Used Back to mirror so he can turn to see Reps/Minutes More than 10 reps each side Comments pizza hands out to side, pivot back leg, trunk rotation slower BIG rock and reach Equipment Used In front of mirror Reps/Minutes More than 10 reps on each side Comments Cues for open hands and slower speed BIG backwards step Standing Exercise Name LOB and dysmetria with this Equipment Used Gait belt Reps/Minutes 10 reps each side Comments Cues for smaller step back, slower, keep tight BIG side step Reps/Minutes Several reps to each side Comments Improved today BIG forward step Reps/Minutes Several reps today Comments Improving PT-OP-T Assessment and Plan Start: 04/28/24 07:48 Freq: Status: Active Protocol: Document 05/24/24 08:56 MB (Rec: 05/24/24 09:36 MB [id number]) Physical Therapy Assessment Rehab Potential Rehabilitation Potential Good Evaluation Complexity Number of Personal Factors/Comorbidities 1-2 Number of Body Systems Impaired 3 Clinical Presentation at Evaluation Evolving Impairments Impairments Activity Tolerance,Balance, Coordination,Functional Activities,Functional Mobility ,Gait,Pain,Posture,ROM,Soft Tissue Mobility,Strength, Transfers Goals 3 Impairment Lack of HEP Manager Intensive Care Unit Goal (LTG) Pt will perform progressive HEP with I including balance, amplitude enhancement, LE and gait exercises to improve overall functional mobility. LTG Duration 8 weeks 2 Impairment Evidence of imbalance Senior Living Goal (LTG) Pt will perform WNLs on FGA to decrease fall risk. LTG Duration 8 weeks 1 Impairment Impaired gait Senior Living Goal (LTG) Pt will gait train at least 1716 feet in 6 minutes with improved B arm swing and foot clearance to improve community ambulation. LTG Duration 8 weeks Assessment Summary Assessment Held teaching neurogenic bladder protocol with TENS today d/t pt with DBS and will need to talk with the doctor who is managing this, who is referring provider Sixto Zamora , per pt. PT will call. Extensive practice on backwards step and side rock and reach today. Physical Therapy Plan Frequency and Duration Frequency of Treatment 2x-4x/wk Duration of treatment (weeks) 8 Plan of Care Start Date 05/03/24 Plan of Care End Date 07/01/24 Therapeutic Interventions Therapeutic Interventions Balance Training,Canalithic Repositioning,Coordination Training,Gait Training,Home Exercise Program,Joint Mobilizations,Neuromuscular Re -education,Patient/Caregiver Education,Self-Care/Home Management,Soft Tissue Mobilization,Taping, Therapeutic Activities, Therapeutic Exercises Modalities Cold Pack/Ice Massage,Electric Stimulation,Hot Packs, Ultrasound Next Visit Focus/Plan Next Note Type Treatment Note Next Visit Plan Con't per plan: ongoing LSVT BIG exercises, consider gait training with metronome for speed 101 bpm and accuracy
--- NOTE | 2024-05-24 09:42 | PT-OP ANOTE ---
PT leaves message for Dr. Sixto Zamora to ask if PT can use TENS on lower leg in presence of DBS. Will await response before attempting TENS treatment of tibial nerve for neurogenic bladder.
--- NOTE | 2024-05-24 12:59 | PT-OP ANOTE ---
While I was documenting, the [employer] Rep, Risa Lindo, called PT. Her phone number is [phone]. She said patient's called her and gave her my name. She stated there is no clear data but that contraindications that would be considered for cardiac pacemakers should be adhered to as far as the DBS. TENS is more superficial and PT point of contact is more distal so she didn't think it would be a problem. She gave us the model of the DBS: [employer] Model # DB-1200, [place]. She said the patient can turn off the machine when TENS being used. When I asked him that today, he stated that he does not typically do this. For PT, we will follow precautions to clear with physician, which is also what the rep recommended.
--- NOTE | 2024-05-24 14:29 | PT-OP ANOTE ---
Addendem to notes today: during PT treatment when PT discusses TENS for neurogenic bladder with pt, pt states that he is receiving stimulation with [employer]ARGET AIRCRAFT TECHNICIAN. Given this, PT briefly speaks with [employer]ARGET AIR[employer]FT TECHNICIAN who confirms this. PT communicates with pt and TARGET AIR[employer]FT TECHNICIAN that PT is awaiting MD clearance before initiating TENS.
--- NOTE | 2024-05-26 08:20 | PT-OP ANOTE ---
PT calls [employer] at as directed by pt's rep, Risa Cross. Rep reports that for model DB-1200, there is no safety data for the use of electrical stimulation in setting of the DBS. She reports it would be ideal to turn off the DBS if electrical stimulation is used but this should be cleared with physician given indication for DBS (PD and tremor). She recommends using electrical stimulation as far as possible away from the device and that the leg is pretty distal to the DBS device placement under the clavicle with wires in neck and brain. She reports concern is for electrical interference that could decrease the effectiveness of the DBS or turn the DBS off. She recommends clear with physician before use of electrical stimulation such as TENS. PT left message at Dr. Yanira Zamora's office and will await discussion with him before revisiting use of TENS on tibial nerve for neurogenic bladder.
--- NOTE | 2024-05-26 17:48 | PT-OP ANOTE ---
Dr. Zamora returns PT call to address questions about the use of electrical stimulation in the setting of DBS. MD recommends that PT speak with nutrition representative at [employer] and PT communicates earlier discussion with [employer] rep including recommendation to turn DBS off and also the concern about causing DBS interference with use of e-stim. After discussion about risks and benefits, Dr. Zamora communicates that he does not recommend the use of electrical stimulation therapies with Jesse.
--- NOTE | 2024-05-27 15:20 | PT.OTN ---
Current Diagnoses Parkinson's disease without dyskinesia, with fluctuations (05/27/24) Physical Therapy Treatment Note PT-OP-A Visit Information Start: 04/28/24 07:48 Freq: Status: Active Protocol: Document 05/27/24 14:35 SP (Rec: 05/27/24 15:47 SP [id number]) Out-Patient Physical Therapy Visit Information Visit Information Visit Type Treatment Note Visit Note Medicare, 10/06 before KX is Shawna, pt goes by Jesse Progress note by 06/03/24 Visit Start Time 14:35 Visit Stop Time 15:20 Visit Number 7 Number of REFRIGERATION SPECIALIST Visits 1 Evaluation Information Evaluation Date 05/03/24 Precautions Precautions Systolic BP drop on eval and pt has DBS and so cannot teach TENS neurogenic bladder protocol unless cleared by doctor and PT to call PT-OP-B Current Condition Start: 04/28/24 07:48 Freq: Status: Active Protocol: Document 05/03/24 11:24 MB (Rec: 05/03/24 12:07 MB [id number]) Current Condition History of Current Condition Onset Date 2007 tremors left hand, now B Current Complaints Imbalance History of Current Condition Pt had speech therapy to work on swallowing d/t choking. Pt is getting family day care provider to help with alignment. Pt is biking on stationary bike 30 minutes every morning, weight lifting 3x/wk and occ biking outside. He fell off bike a year ago and broke his left thumb. He had trouble keeping his balance on his bike. Pt has 20 steps to enter home and uses a rail to get in home. 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 Pt is s/p DBS 11/07/19. He has a double DBS. He does not take any medications. Pt does not get light-headed when he gets up. He is just stiff when he gets up. Pt notices he bumps into things to the sides and forward. He tends to lean over to the right. Pt wears a support belt to help as well as compression undershirt. Pt drinks a lot in the morning including low caffeinated drinks. Treatment Goals Patient/Caregiver Goals To improve balance and work on standing up straight PT-OP-C Subjective Start: 04/28/24 07:48 Freq: Status: Active Protocol: Document 05/27/24 14:35 SP (Rec: 05/27/24 15:47 SP [id number]) OP-PT Subjective Patient Comments Patient Comments Pt reports wants to get better at stepping down 1 step not as hard. HOme carpet to hardwood floor . PT-OP-H Neuro Start: 04/28/24 07:48 Freq: Status: Active Protocol: Document 05/03/24 11:24 MB (Rec: 05/03/24 12:07 MB [id number]) Coordination Evaluation Upper Extremity Tests Left Finger to Nose Test Moderate Impairment Pronation/Supination Test Moderate Impairment Right Finger to Nose Test Minimal Impairment Pronation/Supination Test Minimal Impairment Lower Extremity Tests Left Alternate Heel to Knee; Heel to Toe Test Minimal Impairment Heel on Villegas Test Minimal Impairment Foot Tapping Test Minimal Impairment Right Alternate Heel to Knee; Heel to Toe Test Minimal Impairment Heel on Villegas Test Minimal Impairment Foot Tapping Test Minimal Impairment Vital Signs Comments Vital Signs Comments Orthostatic assessment with BP and HR in LUE: supine 152/82, 55; standing 136/68, 59; standing 1' 145/83, 62. PT-OP-K Range of Motion Start: 04/28/24 07:48 Freq: Status: Active Protocol: Document 05/03/24 11:24 MB (Rec: 05/03/24 12:07 MB [id number]) Finger Goniometric Range of Motion Finger ROM Limitations Comments L thumb has changes from old dislocation proximal phalanx and more recent fracture distal phalanx PT-OP-M Strength Start: 04/28/24 07:48 Freq: Status: Active Protocol: Document 05/03/24 11:24 MB (Rec: 05/03/24 12:07 MB [id number]) Shoulder Strength Shoulder Manual Muscle Testing Bilateral Flexion 5 Normal Elbow/Forearm Strength Elbow and Forearm Manual Muscle Testing Bilateral Extension (C7) 5 Normal Hip Strength Hip Manual Muscle Testing Bilateral Flexion (L2) 5 Normal Knee Strength Knee Manual Muscle Testing Bilateral Flexion (S2) 5 Normal Ankle/Foot Strength Ankle and Foot Manual Muscle Testing Bilateral Dorsiflexion (L4) 5 Normal Toe Strength Toe Manual Muscle Testing Left Great Toe Extension 5 Normal Right Great Toe Extension 5 Normal PT-OP-Q Treatments Start: 04/28/24 07:48 Freq: Status: Active Protocol: Document 05/27/24 14:35 SP (Rec: 05/27/24 15:47 SP [id number]) Therapeutic Exercises Sitting Exercises BIG sit to stand Equipment Used BIG chair Reps/Minutes 10 reps Comments Cues to count, smoother movement & decent sit controlled BIG side to side Sitting Exercise Name Alternated sides today. Equipment Used BIG chair Reps/Minutes 10 reps alternating Comments Improved feet return to start pos & leg back, loud counting BIG floor to ceiling Equipment Used BIG chair Reps/Minutes 10 reps 10 SH (count 1st rep then 2-10) Comments Cues for BIG left hand, count out loud to 10 Standing Exercises Sideways rock and reach Standing Exercise Name Cues to pivot on back toe only and that moves him around Equipment Used Back to mirror so he can turn to see Reps/Minutes 20 reps alternating Comments pizza hands out to side, pivot back leg, trunk rotation slower, hands lap BIG rock and reach Equipment Used In front of mirror Reps/Minutes More than 10 reps on each side Comments Cues for open hands and slower speed, L arm back BIG backwards step Standing Exercise Name LOB and dysmetria with this Resistance front mirror Reps/Minutes 20 reps alternating Comments Cues hands front start, smaller step back, slower, WBOS, front toe up BIG side step Equipment Used front mirror Reps/Minutes 20 reps alternating Comments cued point toe direction, smaller step BIG forward step Equipment Used front mirror Reps/Minutes 20 reps alternating Comments smaller step fwd, back side by side, hands on lap Therapeutic Activity Therapeutic Activity step down Name functional task 6 step Reps/Minutes 6 reps Comments cued soft step down, fine R, ridgid L, tends to lock out L knee, less hard step down cues quiet step down Gait Training Gait Activity Gait pattern and guille work Description BIG Walking: Metronome 101 best Distance/Duration 1 lap around clinic, hallway 2 laps Comments Improved more consistent and increase foot clearance and arm swing with cues today, cues lessen stride length better trunk over PAULA lateral stability. Included BIG turns PT-OP-T Assessment and Plan Start: 04/28/24 07:48 Freq: Status: Active Protocol: Document 05/27/24 14:35 SP (Rec: 05/27/24 15:47 SP [id number]) Physical Therapy Assessment Goals 3 Impairment Lack of HEP Impairment . Senior Care Goal (LTG) Pt will perform progressive HEP with I including balance, amplitude enhancement, LE and gait exercises to improve overall functional mobility. LTG Duration 8 weeks 2 Impairment Evidence of imbalance Impairment . Life Science Taxonomist Goal (LTG) Pt will perform WNLs on FGA to decrease fall risk. LTG Duration 8 weeks 1 Impairment Impaired gait Impairment . Life Science Taxonomist Goal (LTG) Pt will gait train at least 1716 feet in 6 minutes with improved B arm swing and foot clearance to improve community ambulation. LTG Duration 8 weeks Assessment Summary Assessment Pt improved stability with cues for slower pacing, increase PAULA, smaller stride during ex and walking. Back stepping most challenging. Challenge counting 1st rep # then 2-10 counting hold time tends at home to count rep when hands on lap, improved with reps. Initiated step down due to pt stated difficult hard on L tends to lock. Improved with cues for quiet stepping, noted little less ridgid. Discussed and provided to fill out Functional Task Form and can borrow DVD of exercises bring form next tx for awareness Ther Act going to work better at. Will need DVD back before finished with BIG program. LSVT BIG is 1 hr 2x day (Home/PT and BID on est of weekly days not have PT appt), in PT 1 hr 4days/wk. Pt asked if do HEP Thu, Sat and Sun BID? REFRIGERATION SPECIALIST deffered to PT on Thu. Physical Therapy Plan Frequency and Duration Frequency of Treatment 2x-4x/wk Duration of treatment (weeks) 8 Plan of Care Start Date 05/03/24 Plan of Care End Date 07/01/24 Therapeutic Interventions Therapeutic Interventions Balance Training,Canalithic Repositioning,Coordination Training,Gait Training,Home Exercise Program,Joint Mobilizations,Neuromuscular Re -education,Patient/Caregiver Education,Self-Care/Home Management,Soft Tissue Mobilization,Taping, Therapeutic Activities, Therapeutic Exercises Modalities Cold Pack/Ice Massage,Electric Stimulation,Hot Packs, Ultrasound Next Visit Focus/Plan Next Note Type Treatment Note Next Visit Plan Start LSVT BIG PT Thursday 1 hr day 4 days wk/ then BID thu/ sat/thu, Continue gait training with metronome for speed 101 bpm and accuracy, step down LLE less rigid as Funtional task, will bring in HO Thursday.
--- NOTE | 2024-05-30 15:47 | PT.OTN ---
Addendum entered and electronically signed by Chelsy Hughes, YVONNE 05/30/24 15:52: Need to add in progress note date Original Note: Current Diagnoses Parkinson's disease without dyskinesia, with fluctuations (05/30/24) Physical Therapy Treatment Note PT-OP-A Visit Information Start: 04/28/24 07:48 Freq: Status: Active Protocol: Document 05/30/24 14:34 MB (Rec: 05/30/24 15:47 MB [id number]) Out-Patient Physical Therapy Visit Information Visit Information Visit Type Progress Note Visit Note Medicare, 12/06 before KX is Shawna, pt goes by Jesse Visit Start Time 14:34 Visit Stop Time 15:30 Visit Number 8 Number of DUMPCART DRIVER Visits 0 Evaluation Information Evaluation Date 05/03/24 Precautions Precautions Keep an eye on BP as needed PT-OP-B Current Condition Start: 04/28/24 07:48 Freq: Status: Active Protocol: Document 05/03/24 11:24 MB (Rec: 05/03/24 12:07 MB [id number]) Current Condition History of Current Condition Onset Date 2007 tremors left hand, now B Current Complaints Imbalance History of Current Condition Pt had speech therapy to work on swallowing d/t choking. Pt is getting healthcare receptionist to help with alignment. Pt is biking on stationary bike 30 minutes every morning, weight lifting 3x/wk and occ biking outside. He fell off bike a year ago and broke his left thumb. He had trouble keeping his balance on his bike. Pt has 20 steps to enter home and uses a rail to get in home. 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 Pt is s/p DBS 11/07/19. He has a double DBS. He does not take any medications. Pt does not get light-headed when he gets up. He is just stiff when he gets up. Pt notices he bumps into things to the sides and forward. He tends to lean over to the right. Pt wears a support belt to help as well as compression undershirt. Pt drinks a lot in the morning including low caffeinated drinks. Treatment Goals Patient/Caregiver Goals To improve balance and work on standing up straight PT-OP-C Subjective Start: 04/28/24 07:48 Freq: Status: Active Protocol: Document 05/30/24 14:34 MB (Rec: 05/30/24 15:47 MB [id number]) OP-PT Subjective Patient Comments Patient Comments Pt does not have a DVD player to watch LSVT BIG exercises and he has found exercises on YouTube. PT-OP-H Neuro Start: 04/28/24 07:48 Freq: Status: Active Protocol: Document 05/03/24 11:24 MB (Rec: 05/03/24 12:07 MB [id number]) Coordination Evaluation Upper Extremity Tests Left Finger to Nose Test Moderate Impairment Pronation/Supination Test Moderate Impairment Right Finger to Nose Test Minimal Impairment Pronation/Supination Test Minimal Impairment Lower Extremity Tests Left Alternate Heel to Knee; Heel to Toe Test Minimal Impairment Heel on Villegas Test Minimal Impairment Foot Tapping Test Minimal Impairment Right Alternate Heel to Knee; Heel to Toe Test Minimal Impairment Heel on Villegas Test Minimal Impairment Foot Tapping Test Minimal Impairment Vital Signs Comments Vital Signs Comments Orthostatic assessment with BP and HR in LUE: supine 152/82, 55; standing 136/68, 59; standing 1' 145/83, 62. PT-OP-K Range of Motion Start: 04/28/24 07:48 Freq: Status: Active Protocol: Document 05/03/24 11:24 MB (Rec: 05/03/24 12:07 MB [id number]) Finger Goniometric Range of Motion Finger ROM Limitations Comments L thumb has changes from old dislocation proximal phalanx and more recent fracture distal phalanx PT-OP-M Strength Start: 04/28/24 07:48 Freq: Status: Active Protocol: Document 05/03/24 11:24 MB (Rec: 05/03/24 12:07 MB [id number]) Shoulder Strength Shoulder Manual Muscle Testing Bilateral Flexion 5 Normal Elbow/Forearm Strength Elbow and Forearm Manual Muscle Testing Bilateral Extension (C7) 5 Normal Hip Strength Hip Manual Muscle Testing Bilateral Flexion (L2) 5 Normal Knee Strength Knee Manual Muscle Testing Bilateral Flexion (S2) 5 Normal Ankle/Foot Strength Ankle and Foot Manual Muscle Testing Bilateral Dorsiflexion (L4) 5 Normal Toe Strength Toe Manual Muscle Testing Left Great Toe Extension 5 Normal Right Great Toe Extension 5 Normal PT-OP-Q Treatments Start: 04/28/24 07:48 Freq: Status: Active Protocol: Document 05/30/24 14:34 MB (Rec: 05/30/24 15:47 MB [id number]) Therapeutic Exercises Sitting Exercises BIG sit to stand Equipment Used Mesh chair Reps/Minutes 10 reps BIG side to side Sitting Exercise Name Same side today, over shooting with leg and hand ooc Equipment Used Mesh chair Reps/Minutes 10 reps alternating Comments Cues to return to start and start big BIG floor to ceiling Equipment Used Mesh chair Reps/Minutes 10 reps Standing Exercises Sideways rock and reach Equipment Used In front of mirror Reps/Minutes 10 reps, one side at a time Comments Cues to complete the exercise with slap on the thigh BIG rock and reach Reps/Minutes 10 reps each side Comments Cues to open hands big towards legs BIG backwards step Standing Exercise Name Most trouble with this one Reps/Minutes 20 reps, trouble with alternating Comments Pt tends to balance with hands and wrist extension is limited BIG side step Reps/Minutes 20 reps alternating Comments Much better at NOT overshooting BIG forward step Reps/Minutes 20 alternating reps Comments Pt tends to overshoot with overstomp forward and soft return uneven Gait Training Gait Activity 6MWT Comments Pt gait trains 1670 feet in 6 minutes at 108 BPM metronome and cues to keep legs loose and big left hand Neuro Re-Education Treatment Balance Activities FGA Comments FGA score is 18/30 and overall dysmetria from PD makes some balance challenges with all tasks, especially LLE PT-OP-T Assessment and Plan Start: 04/28/24 07:48 Freq: Status: Active Protocol: Document 05/30/24 14:34 MB (Rec: 05/30/24 15:47 MB [id number]) Physical Therapy Assessment Rehab Potential Rehabilitation Potential Good Evaluation Complexity Number of Personal Factors/Comorbidities 1-2 Number of Body Systems Impaired 3 Clinical Presentation at Evaluation Evolving Impairments Impairments Activity Tolerance,Balance, Coordination,Functional Activities,Functional Mobility ,Gait,Pain,Posture,ROM,Soft Tissue Mobility,Strength, Transfers Goals 3 Impairment Lack of HEP Shelter Goal (LTG) Pt will perform BIG exercises with I to improve amplitude of movements and overall functional mobility. 05/30/24: Pt is performing his BIG exercises at home. He has some challenges and is not yet performing alternating exercises. LTG Duration 4 weeks 2 Impairment Evidence of imbalance Sql Consultant Goal (LTG) Pt will perform WNLs on FGA to decrease fall risk. 05/30/24: FGA score is 18/30 LTG Duration 4 weeks 1 Impairment Impaired gait Shelter Goal (LTG) Pt will gait train at least 1716 feet in 6 minutes with improved B arm swing and foot clearance to improve community ambulation. 05/30/24: Pt gait trains 1670 feet in 6 minutes at 108 BPM metronome and cues to keep legs loose and big left hand LTG Duration 4 weeks Assessment Summary Assessment Pt is progressing with exercises, gait and balance. He has transitioned to LSVT BIG program and anticipate good response. As discussed with Dr. Zamora, will not perform TENS in setting of DBS. Physical Therapy Plan Frequency and Duration Frequency of Treatment 4x/wk Duration of treatment (weeks) 4 Plan of Care Start Date 05/30/24 Plan of Care End Date 07/01/24 Therapeutic Interventions Therapeutic Interventions Balance Training,Canalithic Repositioning,Coordination Training,Gait Training,Home Exercise Program,Joint Mobilizations,Neuromuscular Re -education,Patient/Caregiver Education,Self-Care/Home Management,Soft Tissue Mobilization,Taping, Therapeutic Activities, Therapeutic Exercises Modalities Cold Pack/Ice Massage,Electric Stimulation,Hot Packs, Ultrasound Next Visit Focus/Plan Next Note Type Treatment Note Next Visit Plan Continue gait training with metronome for speed 101 bpm and accuracy, step down LLE less rigid, bending down deep, con't to work on not overshooting. Progress to alternating all, flicking, progressive gait with holding cup, ankle weights
--- NOTE | 2024-05-30 15:48 | PT.OPPOC ---
Physical, Occupational & Speech Therapy At [facility] Current Diagnoses Parkinson's disease without dyskinesia, with fluctuations (05/30/24) Visit Care Team Role Provider Type Sony Meléndez MD Primary Care Provider Non-Staff Specialty: Internal Medicine Address: [address], [place], [address] Email: David Fan MD Family Provider Non-Staff Specialty: Medical Address: [address], [place], [address] Email: Sixto Zamora DO Attending Provider Non-Staff Referring Provider Specialty: Psychiatry Address: [address] [place], [address] Email: Plan Of Care PT-OP-B Current Condition Start: 04/28/24 07:48 Freq: Status: Active Protocol: Document 05/03/24 11:24 MB (Rec: 05/03/24 12:07 MB [id number]) Current Condition History of Current Condition Onset Date 2007 tremors left hand, now B Current Complaints Imbalance History of Current Condition Pt had speech therapy to work on swallowing d/t choking. Pt is getting career agent to help with alignment. Pt is biking on stationary bike 30 minutes every morning, weight lifting 3x/wk and occ biking outside. He fell off bike a year ago and broke his left thumb. He had trouble keeping his balance on his bike. Pt has 20 steps to enter home and uses a rail to get in home. 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 Pt is s/p DBS 11/07/19. He has a double DBS. He does not take any medications. Pt does not get light-headed when he gets up. He is just stiff when he gets up. Pt notices he bumps into things to the sides and forward. He tends to lean over to the right. Pt wears a support belt to help as well as compression undershirt. Pt drinks a lot in the morning including low caffeinated drinks. Treatment Goals Patient/Caregiver Goals To improve balance and work on standing up straight PT-OP-T Assessment and Plan Start: 04/28/24 07:48 Freq: Status: Active Protocol: Document 05/30/24 14:34 MB (Rec: 05/30/24 15:47 MB [id number]) Physical Therapy Assessment Rehab Potential Rehabilitation Potential Good Evaluation Complexity Number of Personal Factors/Comorbidities 1-2 Number of Body Systems Impaired 3 Clinical Presentation at Evaluation Evolving Impairments Impairments Activity Tolerance,Balance, Coordination,Functional Activities,Functional Mobility ,Gait,Pain,Posture,ROM,Soft Tissue Mobility,Strength, Transfers Goals 3 Impairment Lack of HEP Drywall Hanger Goal (LTG) Pt will perform BIG exercises with I to improve amplitude of movements and overall functional mobility. 05/30/24: Pt is performing his BIG exercises at home. He has some challenges and is not yet performing alternating exercises. LTG Duration 4 weeks 2 Impairment Evidence of imbalance [facility]iary Goal (LTG) Pt will perform WNLs on FGA to decrease fall risk. 05/30/24: FGA score is 18/30 LTG Duration 4 weeks 1 Impairment Impaired gait Penitentiary Goal (LTG) Pt will gait train at least 1716 feet in 6 minutes with improved B arm swing and foot clearance to improve community ambulation. 05/30/24: Pt gait trains 1670 feet in 6 minutes at 108 BPM metronome and cues to keep legs loose and big left hand LTG Duration 4 weeks Assessment Summary Assessment Pt is progressing with exercises, gait and balance. He has transitioned to LSVT BIG program and anticipate good response. As discussed with Dr. Zamora, will not perform TENS in setting of DBS. Physical Therapy Plan Frequency and Duration Frequency of Treatment 4x/wk Duration of treatment (weeks) 4 Plan of Care Start Date 05/30/24 Plan of Care End Date 07/01/24 Therapeutic Interventions Therapeutic Interventions Balance Training,Canalithic Repositioning,Coordination Training,Gait Training,Home Exercise Program,Joint Mobilizations,Neuromuscular Re -education,Patient/Caregiver Education,Self-Care/Home Management,Soft Tissue Mobilization,Taping, Therapeutic Activities, Therapeutic Exercises Modalities Cold Pack/Ice Massage,Electric Stimulation,Hot Packs, Ultrasound Next Visit Focus/Plan Next Note Type Treatment Note Next Visit Plan Continue gait training with metronome for speed 101 bpm and accuracy, step down LLE less rigid, bending down deep, con't to work on not overshooting. Progress to alternating all, flicking, progressive gait with holding cup, ankle weights Plan of Care Dates Plan of Care Start Date 05/30/24 Plan of Care End Date 07/01/24 Electronically Signed by: Chelsy Hughes, PT 05/30/24 1548 If you are in agreement with this Plan of Care, please return a signed and dated copy. I have reviewed this Plan of Care and certify that the skilled therapy services above are required to meet the patient?s needs. Physician Signature Date Printed Name and Credentials Clinical Instructor Signature Printed Name and Credentials
--- NOTE | 2024-05-30 15:53 | PT.OTN ---
Current Diagnoses Parkinson's disease without dyskinesia, with fluctuations (05/30/24) Physical Therapy Treatment Note PT-OP-A Visit Information Start: 04/28/24 07:48 Freq: Status: Active Protocol: Document 05/30/24 14:34 MB (Rec: 05/30/24 15:47 MB [id number]) Out-Patient Physical Therapy Visit Information Visit Information Visit Type Progress Note Visit Note Medicare, 12/06 before KX is Shawna, pt goes by Jesse Progress note 06/13/24 Visit Start Time 14:34 Visit Stop Time 15:30 Visit Number 8 Number of WATER SUPPLY ENGINEER Visits 0 Evaluation Information Evaluation Date 05/03/24 Precautions Precautions Keep an eye on BP as needed PT-OP-B Current Condition Start: 04/28/24 07:48 Freq: Status: Active Protocol: Document 05/03/24 11:24 MB (Rec: 05/03/24 12:07 MB [id number]) Current Condition History of Current Condition Onset Date 2007 tremors left hand, now B Current Complaints Imbalance History of Current Condition Pt had speech therapy to work on swallowing d/t choking. Pt is getting live in caregiver to help with alignment. Pt is biking on stationary bike 30 minutes every morning, weight lifting 3x/wk and occ biking outside. He fell off bike a year ago and broke his left thumb. He had trouble keeping his balance on his bike. Pt has 20 steps to enter home and uses a rail to get in home. 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 Pt is s/p DBS 11/07/19. He has a double DBS. He does not take any medications. Pt does not get light-headed when he gets up. He is just stiff when he gets up. Pt notices he bumps into things to the sides and forward. He tends to lean over to the right. Pt wears a support belt to help as well as compression undershirt. Pt drinks a lot in the morning including low caffeinated drinks. Treatment Goals Patient/Caregiver Goals To improve balance and work on standing up straight PT-OP-C Subjective Start: 04/28/24 07:48 Freq: Status: Active Protocol: Document 05/30/24 14:34 MB (Rec: 05/30/24 15:47 MB [id number]) OP-PT Subjective Patient Comments Patient Comments Pt does not have a DVD player to watch LSVT BIG exercises and he has found exercises on YouTube. PT-OP-H Neuro Start: 04/28/24 07:48 Freq: Status: Active Protocol: Document 05/03/24 11:24 MB (Rec: 05/03/24 12:07 MB [id number]) Coordination Evaluation Upper Extremity Tests Left Finger to Nose Test Moderate Impairment Pronation/Supination Test Moderate Impairment Right Finger to Nose Test Minimal Impairment Pronation/Supination Test Minimal Impairment Lower Extremity Tests Left Alternate Heel to Knee; Heel to Toe Test Minimal Impairment Heel on Villegas Test Minimal Impairment Foot Tapping Test Minimal Impairment Right Alternate Heel to Knee; Heel to Toe Test Minimal Impairment Heel on Villegas Test Minimal Impairment Foot Tapping Test Minimal Impairment Vital Signs Comments Vital Signs Comments Orthostatic assessment with BP and HR in LUE: supine 152/82, 55; standing 136/68, 59; standing 1' 145/83, 62. PT-OP-K Range of Motion Start: 04/28/24 07:48 Freq: Status: Active Protocol: Document 05/03/24 11:24 MB (Rec: 05/03/24 12:07 MB [id number]) Finger Goniometric Range of Motion Finger ROM Limitations Comments L thumb has changes from old dislocation proximal phalanx and more recent fracture distal phalanx PT-OP-M Strength Start: 04/28/24 07:48 Freq: Status: Active Protocol: Document 05/03/24 11:24 MB (Rec: 05/03/24 12:07 MB [id number]) Shoulder Strength Shoulder Manual Muscle Testing Bilateral Flexion 5 Normal Elbow/Forearm Strength Elbow and Forearm Manual Muscle Testing Bilateral Extension (C7) 5 Normal Hip Strength Hip Manual Muscle Testing Bilateral Flexion (L2) 5 Normal Knee Strength Knee Manual Muscle Testing Bilateral Flexion (S2) 5 Normal Ankle/Foot Strength Ankle and Foot Manual Muscle Testing Bilateral Dorsiflexion (L4) 5 Normal Toe Strength Toe Manual Muscle Testing Left Great Toe Extension 5 Normal Right Great Toe Extension 5 Normal PT-OP-Q Treatments Start: 04/28/24 07:48 Freq: Status: Active Protocol: Document 05/30/24 14:34 MB (Rec: 05/30/24 15:47 MB [id number]) Therapeutic Exercises Sitting Exercises BIG sit to stand Equipment Used Mesh chair Reps/Minutes 10 reps BIG side to side Sitting Exercise Name Same side today, over shooting with leg and hand ooc Equipment Used Mesh chair Reps/Minutes 10 reps alternating Comments Cues to return to start and start big BIG floor to ceiling Equipment Used Mesh chair Reps/Minutes 10 reps Standing Exercises Sideways rock and reach Equipment Used In front of mirror Reps/Minutes 10 reps, one side at a time Comments Cues to complete the exercise with slap on the thigh BIG rock and reach Reps/Minutes 10 reps each side Comments Cues to open hands big towards legs BIG backwards step Standing Exercise Name Most trouble with this one Reps/Minutes 20 reps, trouble with alternating Comments Pt tends to balance with hands and wrist extension is limited BIG side step Reps/Minutes 20 reps alternating Comments Much better at NOT overshooting BIG forward step Reps/Minutes 20 alternating reps Comments Pt tends to overshoot with overstomp forward and soft return uneven Gait Training Gait Activity 6MWT Comments Pt gait trains 1670 feet in 6 minutes at 108 BPM metronome and cues to keep legs loose and big left hand Neuro Re-Education Treatment Balance Activities FGA Comments FGA score is 18/30 and overall dysmetria from PD makes some balance challenges with all tasks, especially LLE Self-Care/Home Management Treatment Education Other Education Pt and ask about TENS for neurogenic bladder and PT ed pt and that will not perform after conversation with Dr. Zamora who reports it is not recommended for pt. Pt states again that he does not like to turn off the DBS given PD symptoms. PT-OP-T Assessment and Plan Start: 04/28/24 07:48 Freq: Status: Active Protocol: Document 05/30/24 14:34 MB (Rec: 05/30/24 15:47 MB [id number]) Physical Therapy Assessment Rehab Potential Rehabilitation Potential Good Evaluation Complexity Number of Personal Factors/Comorbidities 1-2 Number of Body Systems Impaired 3 Clinical Presentation at Evaluation Evolving Impairments Impairments Activity Tolerance,Balance, Coordination,Functional Activities,Functional Mobility ,Gait,Pain,Posture,ROM,Soft Tissue Mobility,Strength, Transfers Goals 3 Impairment Lack of HEP Longterm Goal (LTG) Pt will perform BIG exercises with I to improve amplitude of movements and overall functional mobility. 05/30/24: Pt is performing his BIG exercises at home. He has some challenges and is not yet performing alternating exercises. LTG Duration 4 weeks 2 Impairment Evidence of imbalance Wide Piece Goods Inspector Goal (LTG) Pt will perform WNLs on FGA to decrease fall risk. 05/30/24: FGA score is 18/30 LTG Duration 4 weeks 1 Impairment Impaired gait Wide Piece Goods Inspector Goal (LTG) Pt will gait train at least 1716 feet in 6 minutes with improved B arm swing and foot clearance to improve community ambulation. 05/30/24: Pt gait trains 1670 feet in 6 minutes at 108 BPM metronome and cues to keep legs loose and big left hand LTG Duration 4 weeks Assessment Summary Assessment Pt is progressing with exercises, gait and balance. He has transitioned to LSVT BIG program and anticipate good response. As discussed with Dr. Zamora, will not perform TENS in setting of DBS. Physical Therapy Plan Frequency and Duration Frequency of Treatment 4x/wk Duration of treatment (weeks) 4 Plan of Care Start Date 05/30/24 Plan of Care End Date 07/01/24 Therapeutic Interventions Therapeutic Interventions Balance Training,Canalithic Repositioning,Coordination Training,Gait Training,Home Exercise Program,Joint Mobilizations,Neuromuscular Re -education,Patient/Caregiver Education,Self-Care/Home Management,Soft Tissue Mobilization,Taping, Therapeutic Activities, Therapeutic Exercises Modalities Cold Pack/Ice Massage,Electric Stimulation,Hot Packs, Ultrasound Next Visit Focus/Plan Next Note Type Treatment Note Next Visit Plan Continue gait training with metronome for speed 101 bpm and accuracy, step down LLE less rigid, bending down deep, con't to work on not overshooting. Progress to alternating all, flicking, progressive gait with holding cup, ankle weights
--- NOTE | 2024-05-30 15:54 | PT.OPPOC ---
Physical, Occupational & Speech Therapy At [facility] Current Diagnoses Parkinson's disease without dyskinesia, with fluctuations (05/30/24) Visit Care Team Role Provider Type Sony Meléndez MD Primary Care Provider Non-Staff Specialty: Internal Medicine Address: [address], [place], [address] Email: David Fan MD Family Provider Non-Staff Specialty: Medical Address: [address], [place], [address] Email: Sixto Zamora DO Attending Provider Non-Staff Referring Provider Specialty: Psychiatry Address: [address] [place], [address] Email: Plan Of Care PT-OP-B Current Condition Start: 04/28/24 07:48 Freq: Status: Active Protocol: Document 05/03/24 11:24 MB (Rec: 05/03/24 12:07 MB [id number]) Current Condition History of Current Condition Onset Date 2007 tremors left hand, now B Current Complaints Imbalance History of Current Condition Pt had speech therapy to work on swallowing d/t choking. Pt is getting healthcare account manager to help with alignment. Pt is biking on stationary bike 30 minutes every morning, weight lifting 3x/wk and occ biking outside. He fell off bike a year ago and broke his left thumb. He had trouble keeping his balance on his bike. Pt has 20 steps to enter home and uses a rail to get in home. 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 Pt is s/p DBS 11/07/19. He has a double DBS. He does not take any medications. Pt does not get light-headed when he gets up. He is just stiff when he gets up. Pt notices he bumps into things to the sides and forward. He tends to lean over to the right. Pt wears a support belt to help as well as compression undershirt. Pt drinks a lot in the morning including low caffeinated drinks. Treatment Goals Patient/Caregiver Goals To improve balance and work on standing up straight PT-OP-T Assessment and Plan Start: 04/28/24 07:48 Freq: Status: Active Protocol: Document 05/30/24 14:34 MB (Rec: 05/30/24 15:47 MB [id number]) Physical Therapy Assessment Rehab Potential Rehabilitation Potential Good Evaluation Complexity Number of Personal Factors/Comorbidities 1-2 Number of Body Systems Impaired 3 Clinical Presentation at Evaluation Evolving Impairments Impairments Activity Tolerance,Balance, Coordination,Functional Activities,Functional Mobility ,Gait,Pain,Posture,ROM,Soft Tissue Mobility,Strength, Transfers Goals 3 Impairment Lack of HEP Mobile Service Rv Technician Goal (LTG) Pt will perform BIG exercises with I to improve amplitude of movements and overall functional mobility. 05/30/24: Pt is performing his BIG exercises at home. He has some challenges and is not yet performing alternating exercises. LTG Duration 4 weeks 2 Impairment Evidence of imbalance Residential Goal (LTG) Pt will perform WNLs on FGA to decrease fall risk. 05/30/24: FGA score is 18/30 LTG Duration 4 weeks 1 Impairment Impaired gait Residential Goal (LTG) Pt will gait train at least 1716 feet in 6 minutes with improved B arm swing and foot clearance to improve community ambulation. 05/30/24: Pt gait trains 1670 feet in 6 minutes at 108 BPM metronome and cues to keep legs loose and big left hand LTG Duration 4 weeks Assessment Summary Assessment Pt is progressing with exercises, gait and balance. He has transitioned to LSVT BIG program and anticipate good response. As discussed with Dr. Zamora, will not perform TENS in setting of DBS. Physical Therapy Plan Frequency and Duration Frequency of Treatment 4x/wk Duration of treatment (weeks) 4 Plan of Care Start Date 05/30/24 Plan of Care End Date 07/01/24 Therapeutic Interventions Therapeutic Interventions Balance Training,Canalithic Repositioning,Coordination Training,Gait Training,Home Exercise Program,Joint Mobilizations,Neuromuscular Re -education,Patient/Caregiver Education,Self-Care/Home Management,Soft Tissue Mobilization,Taping, Therapeutic Activities, Therapeutic Exercises Modalities Cold Pack/Ice Massage,Electric Stimulation,Hot Packs, Ultrasound Next Visit Focus/Plan Next Note Type Treatment Note Next Visit Plan Continue gait training with metronome for speed 101 bpm and accuracy, step down LLE less rigid, bending down deep, con't to work on not overshooting. Progress to alternating all, flicking, progressive gait with holding cup, ankle weights Plan of Care Dates Plan of Care Start Date 05/30/24 Plan of Care End Date 07/01/24 Electronically Signed by: Chelsy Hughes, PT 05/30/24 2943 If you are in agreement with this Plan of Care, please return a signed and dated copy. I have reviewed this Plan of Care and certify that the skilled therapy services above are required to meet the patient?s needs. Physician Signature Date Printed Name and Credentials Clinical Instructor Signature Printed Name and Credentials
--- NOTE | 2024-05-31 15:34 | PT.OTN ---
Current Diagnoses Parkinson's disease without dyskinesia, with fluctuations (05/31/24) Physical Therapy Treatment Note PT-OP-A Visit Information Start: 04/28/24 07:48 Freq: Status: Active Protocol: Document 05/31/24 14:34 SP (Rec: 05/31/24 15:51 SP [id number]) Out-Patient Physical Therapy Visit Information Visit Information Visit Type Treatment Note Visit Note Medicare, 12/06 before KX is Shawna, pt goes by Jesse Progress note 06/13/24 Visit Start Time 14:34 Visit Stop Time 15:34 Visit Number 9 Number of MINILAB OPERATOR Visits 1 Evaluation Information Evaluation Date 05/03/24 Precautions Precautions Keep an eye on BP as needed PT-OP-B Current Condition Start: 04/28/24 07:48 Freq: Status: Active Protocol: Document 05/03/24 11:24 MB (Rec: 05/03/24 12:07 MB [id number]) Current Condition History of Current Condition Onset Date 2007 tremors left hand, now B Current Complaints Imbalance History of Current Condition Pt had speech therapy to work on swallowing d/t choking. Pt is getting children's zoo caretaker to help with alignment. Pt is biking on stationary bike 30 minutes every morning, weight lifting 3x/wk and occ biking outside. He fell off bike a year ago and broke his left thumb. He had trouble keeping his balance on his bike. Pt has 20 steps to enter home and uses a rail to get in home. 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 Pt is s/p DBS 11/07/19. He has a double DBS. He does not take any medications. Pt does not get light-headed when he gets up. He is just stiff when he gets up. Pt notices he bumps into things to the sides and forward. He tends to lean over to the right. Pt wears a support belt to help as well as compression undershirt. Pt drinks a lot in the morning including low caffeinated drinks. Treatment Goals Patient/Caregiver Goals To improve balance and work on standing up straight PT-OP-C Subjective Start: 04/28/24 07:48 Freq: Status: Active Protocol: Document 05/31/24 14:34 SP (Rec: 05/31/24 15:51 SP [id number]) OP-PT Subjective Patient Comments Patient Comments Pt brought Functional Task HO: Don shoes/socks, obstacle mgt house, backing up, up/down stairs between rooms at home. CHallenge buttoning shirt with L thumb that jammed and dislocated yrs ago. Asked if PT can help relocate make better so can have more open hand during ex. PT-OP-H Neuro Start: 04/28/24 07:48 Freq: Status: Active Protocol: Document 05/03/24 11:24 MB (Rec: 05/03/24 12:07 MB [id number]) Coordination Evaluation Upper Extremity Tests Left Finger to Nose Test Moderate Impairment Pronation/Supination Test Moderate Impairment Right Finger to Nose Test Minimal Impairment Pronation/Supination Test Minimal Impairment Lower Extremity Tests Left Alternate Heel to Knee; Heel to Toe Test Minimal Impairment Heel on Villegas Test Minimal Impairment Foot Tapping Test Minimal Impairment Right Alternate Heel to Knee; Heel to Toe Test Minimal Impairment Heel on Villegas Test Minimal Impairment Foot Tapping Test Minimal Impairment Vital Signs Comments Vital Signs Comments Orthostatic assessment with BP and HR in LUE: supine 152/82, 55; standing 136/68, 59; standing 1' 145/83, 62. PT-OP-K Range of Motion Start: 04/28/24 07:48 Freq: Status: Active Protocol: Document 05/03/24 11:24 MB (Rec: 05/03/24 12:07 MB [id number]) Finger Goniometric Range of Motion Finger ROM Limitations Comments L thumb has changes from old dislocation proximal phalanx and more recent fracture distal phalanx PT-OP-M Strength Start: 04/28/24 07:48 Freq: Status: Active Protocol: Document 05/03/24 11:24 MB (Rec: 05/03/24 12:07 MB [id number]) Shoulder Strength Shoulder Manual Muscle Testing Bilateral Flexion 5 Normal Elbow/Forearm Strength Elbow and Forearm Manual Muscle Testing Bilateral Extension (C7) 5 Normal Hip Strength Hip Manual Muscle Testing Bilateral Flexion (L2) 5 Normal Knee Strength Knee Manual Muscle Testing Bilateral Flexion (S2) 5 Normal Ankle/Foot Strength Ankle and Foot Manual Muscle Testing Bilateral Dorsiflexion (L4) 5 Normal Toe Strength Toe Manual Muscle Testing Left Great Toe Extension 5 Normal Right Great Toe Extension 5 Normal PT-OP-Q Treatments Start: 04/28/24 07:48 Freq: Status: Active Protocol: Document 05/31/24 14:34 SP (Rec: 05/31/24 15:51 SP [id number]) Therapeutic Exercises Sitting Exercises BIG sit to stand Equipment Used BIG chair Reps/Minutes 10 reps BIG side to side Sitting Exercise Name Same side today, over shooting with leg and hand ooc Equipment Used Big CHair Reps/Minutes 10 reps alternating Comments Improved return to start, added flicks BIG floor to ceiling Equipment Used BIG Chair Reps/Minutes 10 reps Comments added flicks, push forward then down Standing Exercises Sideways rock and reach Equipment Used In front of mirror Reps/Minutes 20 alternating Comments Cues to complete the exercise with slap on the thigh, pivot back ft BIG rock and reach Reps/Minutes 10 reps each side Comments Cues to open hands, big wt shift into ft/bk legs BIG backwards step Standing Exercise Name Most trouble with this one Equipment Used cued smaller step back , increased PAULA, front toe up Reps/Minutes 20 reps, trouble with alternating Comments Pt tends to balance with hands and wrist extension is limited BIG side step Reps/Minutes 20 reps alternating Comments Much better at NOT overshooting, added flicks 11- 20 reps BIG forward step Reps/Minutes 20 alternating reps Comments Cued smaller stride improved ft clearance, added flicks 11- 20 reps Therapeutic Activity Therapeutic Activity Obstacle Mgt Name future Shoe/sock donning Name future step down Name functional task 4 & 6 step Reps/Minutes 6 reps Comments cued soft step down (toe then heel soft L knee flex), tends to lock L knee stance time, less hard step down cues quiet step down Gait Training Gait Activity Dynamic Gait Level of Assistance SBA ER Hallway Distance/Duration 2 laps each Comments Backward walking 92 metronome, cues arms swing, L>R toe heel patterning, slower pacing decreased retro lean listen to the beat 92 bpm, [place] 92>94bpm 2 laps Gait pattern and guille work Description BIG Walking: Metronome 101 best Distance/Duration ER hallway Comments Improved more consistent and increase foot clearance and arm swing with cues today fwd, cues slower pacing lessen stride length better trunk over PAULA lateral stability. Included BIG turns PT-OP-T Assessment and Plan Start: 04/28/24 07:48 Freq: Status: Active Protocol: Document 05/31/24 14:34 SP (Rec: 05/31/24 15:51 SP [id number]) Physical Therapy Assessment Goals 3 Impairment Lack of HEP Impairment . Chcf Goal (LTG) Pt will perform BIG exercises with I to improve amplitude of movements and overall functional mobility. 05/30/24: Pt is performing his BIG exercises at home. He has some challenges and is not yet performing alternating exercises. LTG Duration 4 weeks 2 Impairment Evidence of imbalance Impairment . Chcf Goal (LTG) Pt will perform WNLs on FGA to decrease fall risk. 05/30/24: FGA score is 18/30 LTG Duration 4 weeks 1 Impairment Impaired gait Impairment . Applications Specialist Goal (LTG) Pt will gait train at least 1716 feet in 6 minutes with improved B arm swing and foot clearance to improve community ambulation. 05/30/24: Pt gait trains 1670 feet in 6 minutes at 108 BPM metronome and cues to keep legs loose and big left hand LTG Duration 4 weeks Assessment Summary Assessment Pt progressed alternating all ex. He improved decrease overshooting movements today with cuing and use mirror for self feedback. Cues for pivot on back foot while keeping COG over forefoot, tends to lean into heels during side rock reach, improved with reps. Added flicks today. Progressed backward and grapevine walking, cues slower pacing and improved use metronome. Continued step down with LLE eccentric ankle/knee flexion landing, tends to land flat foot locking out knee, little improvement with reps. Physical Therapy Plan Frequency and Duration Frequency of Treatment 4x/wk Duration of treatment (weeks) 4 Plan of Care Start Date 05/30/24 Plan of Care End Date 07/01/24 Therapeutic Interventions Therapeutic Interventions Balance Training,Canalithic Repositioning,Coordination Training,Gait Training,Home Exercise Program,Joint Mobilizations,Neuromuscular Re -education,Patient/Caregiver Education,Self-Care/Home Management,Soft Tissue Mobilization,Taping, Therapeutic Activities, Therapeutic Exercises Modalities Cold Pack/Ice Massage,Electric Stimulation,Hot Packs, Ultrasound Next Visit Focus/Plan Next Note Type Treatment Note Next Visit Plan Functional Tasks: putting shoes/socks, obstacle mgt, backing up up/down stairs (has many split level steps between rooms 1-3 steps). Continue gait training with metronome for speed 101 bpm and accuracy, step down LLE less rigid, bending down deep, con't to work on not overshooting. Progressive gait with holding cup, ankle weights
--- NOTE | 2024-06-01 15:49 | PT.OTN ---
Current Diagnoses Parkinson's disease without dyskinesia, with fluctuations (06/01/24) Physical Therapy Treatment Note PT-OP-A Visit Information Start: 04/28/24 07:48 Freq: Status: Active Protocol: Document 06/01/24 14:34 MB (Rec: 06/01/24 15:49 MB [id number]) Out-Patient Physical Therapy Visit Information Visit Information Visit Type Treatment Note Visit Note Medicare, before KX is Shawna, pt goes by Jesse Progress note 06/13/24 Visit Start Time 14:34 Visit Stop Time 15:30 Visit Number 10 Number of TRUCK DRIVER'S OFFSIDER Visits 0 Evaluation Information Evaluation Date 05/03/24 Precautions Precautions Keep an eye on BP as needed PT-OP-B Current Condition Start: 04/28/24 07:48 Freq: Status: Active Protocol: Document 05/03/24 11:24 MB (Rec: 05/03/24 12:07 MB [id number]) Current Condition History of Current Condition Onset Date 2007 tremors left hand, now B Current Complaints Imbalance History of Current Condition Pt had speech therapy to work on swallowing d/t choking. Pt is getting cardiac care nurse to help with alignment. Pt is biking on stationary bike 30 minutes every morning, weight lifting 3x/wk and occ biking outside. He fell off bike a year ago and broke his left thumb. He had trouble keeping his balance on his bike. Pt has 20 steps to enter home and uses a rail to get in home. 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 Pt is s/p DBS 11/07/19. He has a double DBS. He does not take any medications. Pt does not get light-headed when he gets up. He is just stiff when he gets up. Pt notices he bumps into things to the sides and forward. He tends to lean over to the right. Pt wears a support belt to help as well as compression undershirt. Pt drinks a lot in the morning including low caffeinated drinks. Treatment Goals Patient/Caregiver Goals To improve balance and work on standing up straight PT-OP-C Subjective Start: 04/28/24 07:48 Freq: Status: Active Protocol: Document 06/01/24 14:34 MB (Rec: 06/01/24 15:49 MB [id number]) OP-PT Subjective Patient Comments Patient Comments Pt asks about DBS situation and so discussed what team including PIGMENT MIXER and PT talked about today. Mostly, PT hopes to support pt and PIGMENT MIXER as a team in pt's care. PT-OP-H Neuro Start: 04/28/24 07:48 Freq: Status: Active Protocol: Document 05/03/24 11:24 MB (Rec: 05/03/24 12:07 MB [id number]) Coordination Evaluation Upper Extremity Tests Left Finger to Nose Test Moderate Impairment Pronation/Supination Test Moderate Impairment Right Finger to Nose Test Minimal Impairment Pronation/Supination Test Minimal Impairment Lower Extremity Tests Left Alternate Heel to Knee; Heel to Toe Test Minimal Impairment Heel on Villegas Test Minimal Impairment Foot Tapping Test Minimal Impairment Right Alternate Heel to Knee; Heel to Toe Test Minimal Impairment Heel on Villegas Test Minimal Impairment Foot Tapping Test Minimal Impairment Vital Signs Comments Vital Signs Comments Orthostatic assessment with BP and HR in LUE: supine 152/82, 55; standing 136/68, 59; standing 1' 145/83, 62. PT-OP-K Range of Motion Start: 04/28/24 07:48 Freq: Status: Active Protocol: Document 05/03/24 11:24 MB (Rec: 05/03/24 12:07 MB [id number]) Finger Goniometric Range of Motion Finger ROM Limitations Comments L thumb has changes from old dislocation proximal phalanx and more recent fracture distal phalanx PT-OP-M Strength Start: 04/28/24 07:48 Freq: Status: Active Protocol: Document 05/03/24 11:24 MB (Rec: 05/03/24 12:07 MB [id number]) Shoulder Strength Shoulder Manual Muscle Testing Bilateral Flexion 5 Normal Elbow/Forearm Strength Elbow and Forearm Manual Muscle Testing Bilateral Extension (C7) 5 Normal Hip Strength Hip Manual Muscle Testing Bilateral Flexion (L2) 5 Normal Knee Strength Knee Manual Muscle Testing Bilateral Flexion (S2) 5 Normal Ankle/Foot Strength Ankle and Foot Manual Muscle Testing Bilateral Dorsiflexion (L4) 5 Normal Toe Strength Toe Manual Muscle Testing Left Great Toe Extension 5 Normal Right Great Toe Extension 5 Normal PT-OP-Q Treatments Start: 04/28/24 07:48 Freq: Status: Active Protocol: Document 06/01/24 14:34 MB (Rec: 06/01/24 15:49 MB [id number]) Therapeutic Exercises Sitting Exercises BIG sit to stand Equipment Used BIG chair Reps/Minutes 10 reps BIG side to side Equipment Used Big Chair Reps/Minutes 10 reps alternating Comments Cues to complete each rep in the middle, flicks BIG floor to ceiling Equipment Used BIG Chair Reps/Minutes 10 reps Comments added flicks, push forward then down Standing Exercises Sideways rock and reach Equipment Used In front of mirror Reps/Minutes 20 alternating Comments Cued to complete reps, center up, slap thighs and keep hands up BIG rock and reach Reps/Minutes 10 reps each side Comments Cues to open hands, big wt shift into ft/bk legs BIG backwards step Standing Exercise Name Most trouble with this one and he has LOB Equipment Used cued smaller step back , increased PAULA Reps/Minutes 20 reps, trouble with alternating Comments Pt tends to balance with hands and wrist extension is limited BIG side step Equipment Used in front of mirror Reps/Minutes 20 reps alternating Comments Better movement with this exercise BIG forward step Equipment Used in front of mirror Reps/Minutes 20 alternating reps Comments Improvement with this exercise Self-Care/Home Management Treatment Education Other Education Pt asks about DBS situation and so discussed what team including PIGMENT MIXER and PT talked about today. Mostly, PT hopes to support pt and PIGMENT MIXER as a team in pt's care. Hope is to get a phone call or Telehealth visit with PIGMENT MIXER, PT, MD, pt and all in a team meeting together. Provided appointment list and time when this might work with pt's appointment and therapy schedule. Also spoke with pt and after treatment and after cleared by PIGMENT MIXER teammate per team plan for pt PT-OP-T Assessment and Plan Start: 04/28/24 07:48 Freq: Status: Active Protocol: Document 06/01/24 14:34 MB (Rec: 06/01/24 15:49 MB [id number]) Physical Therapy Assessment Rehab Potential Rehabilitation Potential Good Evaluation Complexity Number of Personal Factors/Comorbidities 1-2 Number of Body Systems Impaired 3 Clinical Presentation at Evaluation Evolving Impairments Impairments Activity Tolerance,Balance, Coordination,Functional Activities,Functional Mobility ,Gait,Pain,Posture,ROM,Soft Tissue Mobility,Strength, Transfers Goals 3 Impairment Lack of HEP District Gauger Goal (LTG) Pt will perform BIG exercises with I to improve amplitude of movements and overall functional mobility. 05/30/24: Pt is performing his BIG exercises at home. He has some challenges and is not yet performing alternating exercises. LTG Duration 4 weeks 2 Impairment Evidence of imbalance District Gauger Goal (LTG) Pt will perform WNLs on FGA to decrease fall risk. 05/30/24: FGA score is 18/30 LTG Duration 4 weeks 1 Impairment Impaired gait Senior Care Goal (LTG) Pt will gait train at least 1716 feet in 6 minutes with improved B arm swing and foot clearance to improve community ambulation. 05/30/24: Pt gait trains 1670 feet in 6 minutes at 108 BPM metronome and cues to keep legs loose and big left hand LTG Duration 4 weeks Assessment Summary Assessment Pt is slowly progressing with exercises, con't per plan. Physical Therapy Plan Frequency and Duration Frequency of Treatment 4x/wk Duration of treatment (weeks) 4 Plan of Care Start Date 05/30/24 Plan of Care End Date 07/01/24 Therapeutic Interventions Therapeutic Interventions Balance Training,Canalithic Repositioning,Coordination Training,Gait Training,Home Exercise Program,Joint Mobilizations,Neuromuscular Re -education,Patient/Caregiver Education,Self-Care/Home Management,Soft Tissue Mobilization,Taping, Therapeutic Activities, Therapeutic Exercises Modalities Cold Pack/Ice Massage,Electric Stimulation,Hot Packs, Ultrasound Next Visit Focus/Plan Next Note Type Treatment Note Next Visit Plan Continue per POC: gait training with metronome for speed 101 bpm and accuracy, step down LLE less rigid, bending down deep, con't to work on not overshooting. Progressive gait with holding cup, ankle weights
--- NOTE | 2024-06-02 14:00 | PT.OTN ---
Current Diagnoses Parkinson's disease without dyskinesia, with fluctuations (06/02/24) Physical Therapy Treatment Note PT-OP-A Visit Information Start: 04/28/24 07:48 Freq: Status: Active Protocol: Document 06/02/24 12:57 SP (Rec: 06/02/24 14:06 SP [id number]) Out-Patient Physical Therapy Visit Information Visit Information Visit Type Treatment Note Visit Note Medicare, before KX is Shawna, pt goes by Jesse Progress note 06/13/24 Visit Start Time 13:00 Visit Stop Time 14:00 Visit Number 11 Number of HIGH LEAD YARDER Visits 1 Evaluation Information Evaluation Date 05/03/24 Precautions Precautions Keep an eye on BP as needed PT-OP-B Current Condition Start: 04/28/24 07:48 Freq: Status: Active Protocol: Document 05/03/24 11:24 MB (Rec: 05/03/24 12:07 MB [id number]) Current Condition History of Current Condition Onset Date 2007 tremors left hand, now B Current Complaints Imbalance History of Current Condition Pt had speech therapy to work on swallowing d/t choking. Pt is getting daycare provider to help with alignment. Pt is biking on stationary bike 30 minutes every morning, weight lifting 3x/wk and occ biking outside. He fell off bike a year ago and broke his left thumb. He had trouble keeping his balance on his bike. Pt has 20 steps to enter home and uses a rail to get in home. 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 Pt is s/p DBS 11/07/19. He has a double DBS. He does not take any medications. Pt does not get light-headed when he gets up. He is just stiff when he gets up. Pt notices he bumps into things to the sides and forward. He tends to lean over to the right. Pt wears a support belt to help as well as compression undershirt. Pt drinks a lot in the morning including low caffeinated drinks. Treatment Goals Patient/Caregiver Goals To improve balance and work on standing up straight PT-OP-C Subjective Start: 04/28/24 07:48 Freq: Status: Active Protocol: Document 06/02/24 12:57 SP (Rec: 06/02/24 14:06 SP [id number]) OP-PT Subjective Patient Comments Patient Comments Pt feels stretched out after leaves. Arrives feeling stiff. PT-OP-H Neuro Start: 04/28/24 07:48 Freq: Status: Active Protocol: Document 05/03/24 11:24 MB (Rec: 05/03/24 12:07 MB [id number]) Coordination Evaluation Upper Extremity Tests Left Finger to Nose Test Moderate Impairment Pronation/Supination Test Moderate Impairment Right Finger to Nose Test Minimal Impairment Pronation/Supination Test Minimal Impairment Lower Extremity Tests Left Alternate Heel to Knee; Heel to Toe Test Minimal Impairment Heel on Villegas Test Minimal Impairment Foot Tapping Test Minimal Impairment Right Alternate Heel to Knee; Heel to Toe Test Minimal Impairment Heel on Villegas Test Minimal Impairment Foot Tapping Test Minimal Impairment Vital Signs Comments Vital Signs Comments Orthostatic assessment with BP and HR in LUE: supine 152/82, 55; standing 136/68, 59; standing 1' 145/83, 62. PT-OP-K Range of Motion Start: 04/28/24 07:48 Freq: Status: Active Protocol: Document 05/03/24 11:24 MB (Rec: 05/03/24 12:07 MB [id number]) Finger Goniometric Range of Motion Finger ROM Limitations Comments L thumb has changes from old dislocation proximal phalanx and more recent fracture distal phalanx PT-OP-M Strength Start: 04/28/24 07:48 Freq: Status: Active Protocol: Document 05/03/24 11:24 MB (Rec: 05/03/24 12:07 MB [id number]) Shoulder Strength Shoulder Manual Muscle Testing Bilateral Flexion 5 Normal Elbow/Forearm Strength Elbow and Forearm Manual Muscle Testing Bilateral Extension (C7) 5 Normal Hip Strength Hip Manual Muscle Testing Bilateral Flexion (L2) 5 Normal Knee Strength Knee Manual Muscle Testing Bilateral Flexion (S2) 5 Normal Ankle/Foot Strength Ankle and Foot Manual Muscle Testing Bilateral Dorsiflexion (L4) 5 Normal Toe Strength Toe Manual Muscle Testing Left Great Toe Extension 5 Normal Right Great Toe Extension 5 Normal PT-OP-Q Treatments Start: 04/28/24 07:48 Freq: Status: Active Protocol: Document 06/02/24 12:57 SP (Rec: 06/02/24 14:06 SP [id number]) Therapeutic Exercises Sitting Exercises BIG sit to stand Equipment Used BIG chair Reps/Minutes 10 reps BIG side to side Equipment Used Big Chair Reps/Minutes 10 reps alternating Comments Cues to complete each rep in the middle, flicks open fingers BIG floor to ceiling Equipment Used BIG Chair Reps/Minutes 10 reps Comments flicks, push forward then down , loud 1st # not sharp Standing Exercises Sideways rock and reach Equipment Used In front of mirror Reps/Minutes 20 alternating Comments Cued keep hands up before rotation, COG into forefoot return back front BIG rock and reach Reps/Minutes 10 reps each side Comments cued heel down into back position for bal. BIG backwards step Standing Exercise Name Most trouble with this one and he has LOB Equipment Used cued smaller step back , increased PAULA Reps/Minutes 20 reps, trouble with alternating Comments hands wrist extension assist bal, improved form, cued slight smallerstep bk BIG side step Equipment Used in front of mirror Reps/Minutes 20 reps alternating Comments Better movement with this exercise BIG forward step Equipment Used in front of mirror Reps/Minutes 20 alternating reps Comments Improvement with this exercise Therapeutic Activity Therapeutic Activity Obstacle Mgt Name gab stepping step up/down Comments 6 & 4step, 6 hurdles trying keep slower guille, cued knee flexion, soft L knee toe heel landing, improved with focus soft L knee. Shoe/sock donning Name don/doff socks & shoes Comments cross ankle over opposite knee : 1. Doff 16 sec, Don 1 min- put wrong shoe on R foot had to correct- cued BIG movements- use 2 hands 1 hand each side sock and shoe hold opening then pushfoot in. 2. 14 sec don, 100 min- takes time takes time finger gripping flexible shoe holding foot suspended from floor. Suggested keep foot over opp knee. Gait Training Gait Activity Dynamic Gait Level of Assistance SBA ER Hallway Distance/Duration several laps Comments Backward walking and [place] 94 metronome, cues arms swing backward, L toe >heel patterning, Dix arms out side bent<>straighten multitasking. Gait pattern and guille work Description BIG Walking: Metronome 101 best Distance/Duration ER hallway Comments Improved more consistent and increase foot clearance and arm swing with cues today fwd, cues slower pacing lessen stride length better trunk over PAULA lateral stability. Included BIG turns PT-OP-T Assessment and Plan Start: 04/28/24 07:48 Freq: Status: Active Protocol: Document 06/02/24 12:57 SP (Rec: 06/02/24 14:06 SP [id number]) Physical Therapy Assessment Goals 3 Impairment Lack of HEP Impairment . Snf Goal (LTG) Pt will perform BIG exercises with I to improve amplitude of movements and overall functional mobility. 05/30/24: Pt is performing his BIG exercises at home. He has some challenges and is not yet performing alternating exercises. LTG Duration 4 weeks 2 Impairment Evidence of imbalance Impairment . Snf Goal (LTG) Pt will perform WNLs on FGA to decrease fall risk. 05/30/24: FGA score is 18/30 LTG Duration 4 weeks 1 Impairment Impaired gait Impairment . Director Of Conservation Goal (LTG) Pt will gait train at least 1716 feet in 6 minutes with improved B arm swing and foot clearance to improve community ambulation. 05/30/24: Pt gait trains 1670 feet in 6 minutes at 108 BPM metronome and cues to keep legs loose and big left hand LTG Duration 4 weeks Assessment Summary Assessment Pt improved form during ther ex today front mirror, occ 1 sway self recovery rock reach and back stepping. Initiated step and hurdles today trying keep even guille. Started don /doff sock with BIGGEr movements in 1 swoop. Physical Therapy Plan Frequency and Duration Frequency of Treatment 4x/wk Duration of treatment (weeks) 4 Plan of Care Start Date 05/30/24 Plan of Care End Date 07/01/24 Therapeutic Interventions Therapeutic Interventions Balance Training,Canalithic Repositioning,Coordination Training,Gait Training,Home Exercise Program,Joint Mobilizations,Neuromuscular Re -education,Patient/Caregiver Education,Self-Care/Home Management,Soft Tissue Mobilization,Taping, Therapeutic Activities, Therapeutic Exercises Modalities Cold Pack/Ice Massage,Electric Stimulation,Hot Packs, Ultrasound Next Visit Focus/Plan Next Note Type Treatment Note Next Visit Plan Continue per POC: gait training with metronome for speed 101 bpm and accuracy, step down LLE less rigid, bending down deep, con't to work on not overshooting. Progressive gait with holding cup, ankle weights
--- NOTE | 2024-06-06 15:41 | PT.OTN ---
Current Diagnoses Parkinson's disease without dyskinesia, with fluctuations (06/06/24) Physical Therapy Treatment Note PT-OP-A Visit Information Start: 04/28/24 07:48 Freq: Status: Active Protocol: Document 06/06/24 14:30 MB (Rec: 06/06/24 15:40 MB [id number]) Out-Patient Physical Therapy Visit Information Visit Information Visit Type Treatment Note Visit Note KX modifier is Shawna, pt goes by Jesse Progress note on 06/13/24 Visit Start Time 14:30 Visit Stop Time 15:30 Visit Number 12 Number of SLIDE FASTENERS INSPECTOR Visits 0 Evaluation Information Evaluation Date 05/03/24 Precautions Precautions Keep an eye on BP as needed PT-OP-B Current Condition Start: 04/28/24 07:48 Freq: Status: Active Protocol: Document 05/03/24 11:24 MB (Rec: 05/03/24 12:07 MB [id number]) Current Condition History of Current Condition Onset Date 2007 tremors left hand, now B Current Complaints Imbalance History of Current Condition Pt had speech therapy to work on swallowing d/t choking. Pt is getting care administrative tech to help with alignment. Pt is biking on stationary bike 30 minutes every morning, weight lifting 3x/wk and occ biking outside. He fell off bike a year ago and broke his left thumb. He had trouble keeping his balance on his bike. Pt has 20 steps to enter home and uses a rail to get in home. 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 Pt is s/p DBS 11/07/19. He has a double DBS. He does not take any medications. Pt does not get light-headed when he gets up. He is just stiff when he gets up. Pt notices he bumps into things to the sides and forward. He tends to lean over to the right. Pt wears a support belt to help as well as compression undershirt. Pt drinks a lot in the morning including low caffeinated drinks. Treatment Goals Patient/Caregiver Goals To improve balance and work on standing up straight PT-OP-C Subjective Start: 04/28/24 07:48 Freq: Status: Active Protocol: Document 06/06/24 14:30 MB (Rec: 06/06/24 15:40 MB [id number]) OP-PT Subjective Patient Comments Patient Comments Pt has sad news that his nephew by suicide and then pt describes losing 3 of his 5 daughters to MVA. PT-OP-H Neuro Start: 04/28/24 07:48 Freq: Status: Active Protocol: Document 05/03/24 11:24 MB (Rec: 05/03/24 12:07 MB [id number]) Coordination Evaluation Upper Extremity Tests Left Finger to Nose Test Moderate Impairment Pronation/Supination Test Moderate Impairment Right Finger to Nose Test Minimal Impairment Pronation/Supination Test Minimal Impairment Lower Extremity Tests Left Alternate Heel to Knee; Heel to Toe Test Minimal Impairment Heel on Villegas Test Minimal Impairment Foot Tapping Test Minimal Impairment Right Alternate Heel to Knee; Heel to Toe Test Minimal Impairment Heel on Villegas Test Minimal Impairment Foot Tapping Test Minimal Impairment Vital Signs Comments Vital Signs Comments Orthostatic assessment with BP and HR in LUE: supine 152/82, 55; standing 136/68, 59; standing 1' 145/83, 62. PT-OP-K Range of Motion Start: 04/28/24 07:48 Freq: Status: Active Protocol: Document 05/03/24 11:24 MB (Rec: 05/03/24 12:07 MB [id number]) Finger Goniometric Range of Motion Finger ROM Limitations Comments L thumb has changes from old dislocation proximal phalanx and more recent fracture distal phalanx PT-OP-M Strength Start: 04/28/24 07:48 Freq: Status: Active Protocol: Document 05/03/24 11:24 MB (Rec: 05/03/24 12:07 MB [id number]) Shoulder Strength Shoulder Manual Muscle Testing Bilateral Flexion 5 Normal Elbow/Forearm Strength Elbow and Forearm Manual Muscle Testing Bilateral Extension (C7) 5 Normal Hip Strength Hip Manual Muscle Testing Bilateral Flexion (L2) 5 Normal Knee Strength Knee Manual Muscle Testing Bilateral Flexion (S2) 5 Normal Ankle/Foot Strength Ankle and Foot Manual Muscle Testing Bilateral Dorsiflexion (L4) 5 Normal Toe Strength Toe Manual Muscle Testing Left Great Toe Extension 5 Normal Right Great Toe Extension 5 Normal PT-OP-Q Treatments Start: 04/28/24 07:48 Freq: Status: Active Protocol: Document 06/06/24 14:30 MB (Rec: 06/06/24 15:40 MB [id number]) Therapeutic Exercises Sitting Exercises BIG sit to stand Equipment Used BIG chair Reps/Minutes 10 reps BIG side to side Equipment Used Big Chair Reps/Minutes 10 reps alternating Comments Cues to complete each rep in the middle, flicks open fingers BIG floor to ceiling Equipment Used BIG Chair Reps/Minutes 10 reps Comments Cues to reach forward first Standing Exercises Sideways rock and reach Standing Exercise Name Some LOB with this today Equipment Used In front of mirror Reps/Minutes 20 alternating Comments Cues to pivot from legs/foot and not arms, finish in middle BIG rock and reach Reps/Minutes 10 reps each side Comments Better looseness with arms BIG backwards step Standing Exercise Name Con't most trouble with this one Equipment Used Better with smaller step Reps/Minutes 20 alternating reps Comments Some LOB and rigidity in arms/ likely d/t balance change BIG side step Equipment Used in front of mirror Reps/Minutes 20 reps alternating BIG forward step Equipment Used in front of mirror Reps/Minutes 20 alternating reps Comments Cues for BIG PAULA Gait Training Gait Activity Dynamic Gait Comments Mini gab gait: forward gait one foot in between, backward gait, one foot in between scanning right several times and then left to clear feet, grapevine over hurdles with crossing over gab same foot one way and other foot opposite way and CGA and cues, cues for soft knees and to keep guille Gait pattern and guille work Comments Forward gait 101 BPM, up steps 93 BPM, down steps 89 BPM, backwards gait 89 BPM, many reps of all, step gait on long flight of shoulder steps outside clinic between buildings PT-OP-T Assessment and Plan Start: 04/28/24 07:48 Freq: Status: Active Protocol: Document 06/06/24 14:30 MB (Rec: 06/06/24 15:40 MB [id number]) Physical Therapy Assessment Rehab Potential Rehabilitation Potential Good Evaluation Complexity Number of Personal Factors/Comorbidities 1-2 Number of Body Systems Impaired 3 Clinical Presentation at Evaluation Evolving Impairments Impairments Activity Tolerance,Balance, Coordination,Functional Activities,Functional Mobility ,Gait,Pain,Posture,ROM,Soft Tissue Mobility,Strength, Transfers Goals 3 Impairment Lack of HEP Patient Representative Goal (LTG) Pt will perform BIG exercises with I to improve amplitude of movements and overall functional mobility. 05/30/24: Pt is performing his BIG exercises at home. He has some challenges and is not yet performing alternating exercises. LTG Duration 4 weeks 2 Impairment Evidence of imbalance Patient Representative Goal (LTG) Pt will perform WNLs on FGA to decrease fall risk. 05/30/24: FGA score is 18/30 LTG Duration 4 weeks 1 Impairment Impaired gait Patient Representative Goal (LTG) Pt will gait train at least 1716 feet in 6 minutes with improved B arm swing and foot clearance to improve community ambulation. 05/30/24: Pt gait trains 1670 feet in 6 minutes at 108 BPM metronome and cues to keep legs loose and big left hand LTG Duration 4 weeks Assessment Summary Assessment Pt is doing better with BIG exercises overall but he con't to present with trouble with backwards stepping and side rock and reach and imbalance with both. Worked on guille with metronome on long staircase today for ascend and descend and also with forward and backwards walking. Con't per plan, working on soft knees and this to help with left LE rigidity and no LLE rigidity with stair training today. Physical Therapy Plan Frequency and Duration Frequency of Treatment 4x/wk Duration of treatment (weeks) 4 Plan of Care Start Date 05/30/24 Plan of Care End Date 07/01/24 Therapeutic Interventions Therapeutic Interventions Balance Training,Canalithic Repositioning,Coordination Training,Gait Training,Home Exercise Program,Joint Mobilizations,Neuromuscular Re -education,Patient/Caregiver Education,Self-Care/Home Management,Soft Tissue Mobilization,Taping, Therapeutic Activities, Therapeutic Exercises Modalities Cold Pack/Ice Massage,Electric Stimulation,Hot Packs, Ultrasound Next Visit Focus/Plan Next Note Type Treatment Note Next Visit Plan Continue per POC: gait training with metronome for speed 101 bpm forward, 89 bpm backwards and down steps and 93 bpm up steps, and accuracy, step down LLE less rigid, bending down deep, con't to work on not overshooting. Progressive gait with holding cup, ankle weights
--- NOTE | 2024-06-07 15:33 | PT.OTN ---
Current Diagnoses Parkinson's disease without dyskinesia, with fluctuations (06/07/24) Physical Therapy Treatment Note PT-OP-A Visit Information Start: 04/28/24 07:48 Freq: Status: Active Protocol: Document 06/07/24 14:33 SP (Rec: 06/07/24 15:46 SP [id number]) Out-Patient Physical Therapy Visit Information Visit Information Visit Type Treatment Note Visit Note KX modifier is Shawna, pt goes by Jesse Progress note on 06/13/24 Visit Start Time 14:33 Visit Stop Time 15:33 Visit Number 13 Number of SENIOR LITIGATION PARALEGAL Visits 1 Precautions Precautions Keep an eye on BP as needed PT-OP-B Current Condition Start: 04/28/24 07:48 Freq: Status: Active Protocol: Document 05/03/24 11:24 MB (Rec: 05/03/24 12:07 MB [id number]) Current Condition History of Current Condition Onset Date 2007 tremors left hand, now B Current Complaints Imbalance History of Current Condition Pt had speech therapy to work on swallowing d/t choking. Pt is getting personal care attendant to help with alignment. Pt is biking on stationary bike 30 minutes every morning, weight lifting 3x/wk and occ biking outside. He fell off bike a year ago and broke his left thumb. He had trouble keeping his balance on his bike. Pt has 20 steps to enter home and uses a rail to get in home. 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 Pt is s/p DBS 11/07/19. He has a double DBS. He does not take any medications. Pt does not get light-headed when he gets up. He is just stiff when he gets up. Pt notices he bumps into things to the sides and forward. He tends to lean over to the right. Pt wears a support belt to help as well as compression undershirt. Pt drinks a lot in the morning including low caffeinated drinks. Treatment Goals Patient/Caregiver Goals To improve balance and work on standing up straight PT-OP-C Subjective Start: 04/28/24 07:48 Freq: Status: Active Protocol: Document 06/07/24 14:33 SP (Rec: 06/07/24 15:46 SP [id number]) OP-PT Subjective Patient Comments Patient Comments Pt reports some exercises like stepping back getting easier. PT-OP-H Neuro Start: 04/28/24 07:48 Freq: Status: Active Protocol: Document 05/03/24 11:24 MB (Rec: 05/03/24 12:07 MB [id number]) Coordination Evaluation Upper Extremity Tests Left Finger to Nose Test Moderate Impairment Pronation/Supination Test Moderate Impairment Right Finger to Nose Test Minimal Impairment Pronation/Supination Test Minimal Impairment Lower Extremity Tests Left Alternate Heel to Knee; Heel to Toe Test Minimal Impairment Heel on Villegas Test Minimal Impairment Foot Tapping Test Minimal Impairment Right Alternate Heel to Knee; Heel to Toe Test Minimal Impairment Heel on Villegas Test Minimal Impairment Foot Tapping Test Minimal Impairment Vital Signs Comments Vital Signs Comments Orthostatic assessment with BP and HR in LUE: supine 152/82, 55; standing 136/68, 59; standing 1' 145/83, 62. PT-OP-K Range of Motion Start: 04/28/24 07:48 Freq: Status: Active Protocol: Document 05/03/24 11:24 MB (Rec: 05/03/24 12:07 MB [id number]) Finger Goniometric Range of Motion Finger ROM Limitations Comments L thumb has changes from old dislocation proximal phalanx and more recent fracture distal phalanx PT-OP-M Strength Start: 04/28/24 07:48 Freq: Status: Active Protocol: Document 05/03/24 11:24 MB (Rec: 05/03/24 12:07 MB [id number]) Shoulder Strength Shoulder Manual Muscle Testing Bilateral Flexion 5 Normal Elbow/Forearm Strength Elbow and Forearm Manual Muscle Testing Bilateral Extension (C7) 5 Normal Hip Strength Hip Manual Muscle Testing Bilateral Flexion (L2) 5 Normal Knee Strength Knee Manual Muscle Testing Bilateral Flexion (S2) 5 Normal Ankle/Foot Strength Ankle and Foot Manual Muscle Testing Bilateral Dorsiflexion (L4) 5 Normal Toe Strength Toe Manual Muscle Testing Left Great Toe Extension 5 Normal Right Great Toe Extension 5 Normal PT-OP-Q Treatments Start: 04/28/24 07:48 Freq: Status: Active Protocol: Document 06/07/24 14:33 SP (Rec: 06/07/24 15:46 SP [id number]) Therapeutic Exercises Sitting Exercises BIG sit to stand Equipment Used BIG chair Reps/Minutes 10 reps Comments cued chin tuck, crisp BIG side to side Equipment Used Big Chair Reps/Minutes 10 reps alternating Comments Cues to complete each rep in the middle, flicks full open fingers BIG floor to ceiling Equipment Used BIG Chair Reps/Minutes 10 reps Comments Cues full open flicks Standing Exercises Sideways rock and reach Standing Exercise Name Slight over wt shift Equipment Used In front of mirror Reps/Minutes 20 alternating Comments Cues to pivot from legs/foot and not arms, finish in middle , arms up turn BIG rock and reach Reps/Minutes 10 reps each side Comments Better looseness with arms BIG backwards step Standing Exercise Name Con't most trouble with this one Equipment Used Better with smaller step Reps/Minutes 20 alternating reps Comments cued decrease stride, increase step length BIG side step Equipment Used in front of mirror Reps/Minutes 20 reps alternating Comments cued decrease stride, louder BIG forward step Equipment Used in front of mirror Reps/Minutes 20 alternating reps Comments Cues for BIG PAULA Gait Training Gait Activity Dynamic Gait Level of Assistance clinic Distance/Duration several laps Comments Mini gab gait: forward, bwd and lateral cross over gait one foot in between each gab, backward challenge LOB trunk flexion Min/Mod A recovery, lateral grapevine over hurdles with crossing over gab same foot f/b 1 direction and CGA and cues as needed, fwd/ bwd gait carrying cup water cues for shorter stride fwd, longer stride bwd /c soft knees and to keep guille 89 fwd, 82 bwd. Gait pattern and guille work Description BIG Walking: Metronome 101 best Distance/Duration ER hallway Comments Forward gait 101 BPM, up steps 98 BPM, down steps 98 BPM, backwards gait 98-101 BPM cues L arm swing bigger, many reps of all PT-OP-T Assessment and Plan Start: 04/28/24 07:48 Freq: Status: Active Protocol: Document 06/07/24 14:33 SP (Rec: 06/07/24 15:46 SP [id number]) Physical Therapy Assessment Goals 3 Impairment Lack of HEP Impairment . Shelter Goal (LTG) Pt will perform BIG exercises with I to improve amplitude of movements and overall functional mobility. 05/30/24: Pt is performing his BIG exercises at home. He has some challenges and is not yet performing alternating exercises. LTG Duration 4 weeks 2 Impairment Evidence of imbalance Impairment . Form Tamper Goal (LTG) Pt will perform WNLs on FGA to decrease fall risk. 05/30/24: FGA score is 18/30 LTG Duration 4 weeks 1 Impairment Impaired gait Impairment . Form Tamper Goal (LTG) Pt will gait train at least 1716 feet in 6 minutes with improved B arm swing and foot clearance to improve community ambulation. 05/30/24: Pt gait trains 1670 feet in 6 minutes at 108 BPM metronome and cues to keep legs loose and big left hand LTG Duration 4 weeks Assessment Summary Assessment Pt improved in most BIG exercises overall, bwd improved after 2nd rep increased PAULA, and side decreased stride step. Pt was able to increase guille metronome 98 bpm on stairs asc /desc. Challenged with backward hurdles LOB due to trunk flexion Min/Mod A recovery tends to tandem/ scissor step, cues for increased posturing only looking 1 side full set hurdles then look other side back other directions, cues increased PAULA also helped stability. Decreased speed carrying cup water, more challenging in LUE than R fwd and backward stepping. Physical Therapy Plan Frequency and Duration Frequency of Treatment 4x/wk Duration of treatment (weeks) 4 Plan of Care Start Date 05/30/24 Plan of Care End Date 07/01/24 Therapeutic Interventions Therapeutic Interventions Balance Training,Canalithic Repositioning,Coordination Training,Gait Training,Home Exercise Program,Joint Mobilizations,Neuromuscular Re -education,Patient/Caregiver Education,Self-Care/Home Management,Soft Tissue Mobilization,Taping, Therapeutic Activities, Therapeutic Exercises Modalities Cold Pack/Ice Massage,Electric Stimulation,Hot Packs, Ultrasound Next Visit Focus/Plan Next Note Type Treatment Note Next Visit Plan Continue per POC: gait training with metronome for speed 101 bpm forward, 98 bpm backwards and down steps and 98 bpm up steps, and soft step step down LLE less rigid, bending down deep, con't to work on not overshooting. Continue gait with holding cup on carpet, future ankle weights
--- NOTE | 2024-06-08 15:30 | PT.OTN ---
Current Diagnoses Parkinson's disease without dyskinesia, with fluctuations (06/08/24) Physical Therapy Treatment Note PT-OP-A Visit Information Start: 04/28/24 07:48 Freq: Status: Active Protocol: Document 06/08/24 14:28 MB (Rec: 06/08/24 15:29 MB [id number]) Out-Patient Physical Therapy Visit Information Visit Information Visit Type Treatment Note Visit Note KX modifier is Shawna, pt goes by Jesse Progress note on 06/13/24 Visit Start Time 14:28 Visit Stop Time 15:28 Visit Number 14 Number of CARPENTRY PROFESSIONAL Visits 0 Evaluation Information Evaluation Date 05/03/24 Precautions Precautions Keep an eye on BP as needed PT-OP-B Current Condition Start: 04/28/24 07:48 Freq: Status: Active Protocol: Document 05/03/24 11:24 MB (Rec: 05/03/24 12:07 MB [id number]) Current Condition History of Current Condition Onset Date 2007 tremors left hand, now B Current Complaints Imbalance History of Current Condition Pt had speech therapy to work on swallowing d/t choking. Pt is getting child care provider to help with alignment. Pt is biking on stationary bike 30 minutes every morning, weight lifting 3x/wk and occ biking outside. He fell off bike a year ago and broke his left thumb. He had trouble keeping his balance on his bike. Pt has 20 steps to enter home and uses a rail to get in home. 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 Pt is s/p DBS 11/07/19. He has a double DBS. He does not take any medications. Pt does not get light-headed when he gets up. He is just stiff when he gets up. Pt notices he bumps into things to the sides and forward. He tends to lean over to the right. Pt wears a support belt to help as well as compression undershirt. Pt drinks a lot in the morning including low caffeinated drinks. Treatment Goals Patient/Caregiver Goals To improve balance and work on standing up straight PT-OP-C Subjective Start: 04/28/24 07:48 Freq: Status: Active Protocol: Document 06/08/24 14:28 MB (Rec: 06/08/24 15:29 MB [id number]) OP-PT Subjective Patient Comments Patient Comments Pt is feeling pretty good. Backwards walking and looking backwards is challenging. PT-OP-H Neuro Start: 04/28/24 07:48 Freq: Status: Active Protocol: Document 05/03/24 11:24 MB (Rec: 05/03/24 12:07 MB [id number]) Coordination Evaluation Upper Extremity Tests Left Finger to Nose Test Moderate Impairment Pronation/Supination Test Moderate Impairment Right Finger to Nose Test Minimal Impairment Pronation/Supination Test Minimal Impairment Lower Extremity Tests Left Alternate Heel to Knee; Heel to Toe Test Minimal Impairment Heel on Villegas Test Minimal Impairment Foot Tapping Test Minimal Impairment Right Alternate Heel to Knee; Heel to Toe Test Minimal Impairment Heel on Villegas Test Minimal Impairment Foot Tapping Test Minimal Impairment Vital Signs Comments Vital Signs Comments Orthostatic assessment with BP and HR in LUE: supine 152/82, 55; standing 136/68, 59; standing 1' 145/83, 62. PT-OP-K Range of Motion Start: 04/28/24 07:48 Freq: Status: Active Protocol: Document 05/03/24 11:24 MB (Rec: 05/03/24 12:07 MB [id number]) Finger Goniometric Range of Motion Finger ROM Limitations Comments L thumb has changes from old dislocation proximal phalanx and more recent fracture distal phalanx PT-OP-M Strength Start: 04/28/24 07:48 Freq: Status: Active Protocol: Document 05/03/24 11:24 MB (Rec: 05/03/24 12:07 MB [id number]) Shoulder Strength Shoulder Manual Muscle Testing Bilateral Flexion 5 Normal Elbow/Forearm Strength Elbow and Forearm Manual Muscle Testing Bilateral Extension (C7) 5 Normal Hip Strength Hip Manual Muscle Testing Bilateral Flexion (L2) 5 Normal Knee Strength Knee Manual Muscle Testing Bilateral Flexion (S2) 5 Normal Ankle/Foot Strength Ankle and Foot Manual Muscle Testing Bilateral Dorsiflexion (L4) 5 Normal Toe Strength Toe Manual Muscle Testing Left Great Toe Extension 5 Normal Right Great Toe Extension 5 Normal PT-OP-Q Treatments Start: 04/28/24 07:48 Freq: Status: Active Protocol: Document 06/08/24 14:28 MB (Rec: 06/08/24 15:29 MB [id number]) Therapeutic Exercises Sitting Exercises BIG sit to stand Equipment Used BIG chair Reps/Minutes 10 reps BIG side to side Equipment Used Big Chair Reps/Minutes 10 reps alternating Comments Con't cues to complete each exercise and then start next rep BIG floor to ceiling Equipment Used BIG Chair Reps/Minutes 10 reps Comments Cues for chin tuck Standing Exercises Sideways rock and reach Equipment Used In front of mirror Reps/Minutes 20 alternating Comments Cues for weight shift BIG rock and reach Reps/Minutes 10 reps each side BIG backwards step Standing Exercise Name Con't most trouble with this one Equipment Used Better with smaller step Reps/Minutes 20 alternating reps Comments Some imbalance but better BIG side step Equipment Used in front of mirror Reps/Minutes 20 reps alternating BIG forward step Equipment Used in front of mirror Reps/Minutes 20 alternating reps Comments Cues for BIG PAULA Gait Training Gait Activity Dynamic Gait Level of Assistance clinic Distance/Duration several laps Comments Mini gab gait: forward gait one foot in between, backward gait, one foot in between scanning right several times and then left to clear feet, grapevine over hurdles with crossing over gab same foot one way and other foot opposite way and CGA and cues, cues for soft knees and to keep guille, also long balance beam with focus on BIG steps Gait pattern and guille work Description BIG Walking Distance/Duration ER hallway Comments Forward gait 101-103 BPM, backwards 89 and down steps 89 BPM and up steps 93 BPM and cues for form, not for speed, to keep BIG and BIG arm swing PT-OP-T Assessment and Plan Start: 04/28/24 07:48 Freq: Status: Active Protocol: Document 06/08/24 14:28 MB (Rec: 06/08/24 15:29 MB [id number]) Physical Therapy Assessment Rehab Potential Rehabilitation Potential Good Evaluation Complexity Number of Personal Factors/Comorbidities 1-2 Number of Body Systems Impaired 3 Clinical Presentation at Evaluation Evolving Impairments Impairments Activity Tolerance,Balance, Coordination,Functional Activities,Functional Mobility ,Gait,Pain,Posture,ROM,Soft Tissue Mobility,Strength, Transfers Goals 3 Impairment Lack of HEP Correction Goal (LTG) Pt will perform BIG exercises with I to improve amplitude of movements and overall functional mobility. 05/30/24: Pt is performing his BIG exercises at home. He has some challenges and is not yet performing alternating exercises. LTG Duration 4 weeks 2 Impairment Evidence of imbalance Transitional Care Manager Goal (LTG) Pt will perform WNLs on FGA to decrease fall risk. 05/30/24: FGA score is 18/30 LTG Duration 4 weeks 1 Impairment Impaired gait Correction Goal (LTG) Pt will gait train at least 1716 feet in 6 minutes with improved B arm swing and foot clearance to improve community ambulation. 05/30/24: Pt gait trains 1670 feet in 6 minutes at 108 BPM metronome and cues to keep legs loose and big left hand LTG Duration 4 weeks Assessment Summary Assessment Better performance with BIG exercises today, especially with backwards stepping and only one LOB. Pt with some impulsivitiy and gets on balance beam as PT setting up hurdles and LOB without injury . Ed pt to wait for PT and to work on amplitude and control of balance and weight shifting . Will try not to increase guille anymore with metronome as pt tends to go fast and culver and lose balance and not keep BIG and controlled movement. Physical Therapy Plan Frequency and Duration Frequency of Treatment 4x/wk Duration of treatment (weeks) 4 Plan of Care Start Date 05/30/24 Plan of Care End Date 07/01/24 Therapeutic Interventions Therapeutic Interventions Balance Training,Canalithic Repositioning,Coordination Training,Gait Training,Home Exercise Program,Joint Mobilizations,Neuromuscular Re -education,Patient/Caregiver Education,Self-Care/Home Management,Soft Tissue Mobilization,Taping, Therapeutic Activities, Therapeutic Exercises Modalities Cold Pack/Ice Massage,Electric Stimulation,Hot Packs, Ultrasound Next Visit Focus/Plan Next Note Type Treatment Note Next Visit Plan Try not to increase guille anymore with metronome as pt tends to go fast and culver and lose balance and not keep BIG and controlled movement Gait training with metronome for speed 101-103 bpm forward, 89 bpm backwards and down steps and 93 bpm up steps, and soft step step down LLE less rigid, bending down deep, con' t to work on not overshooting. Continue gait with holding cup on carpet, future ankle weights
--- NOTE | 2024-06-09 15:33 | PT.OTN ---
Current Diagnoses Parkinson's disease without dyskinesia, with fluctuations (06/09/24) Physical Therapy Treatment Note PT-OP-A Visit Information Start: 04/28/24 07:48 Freq: Status: Active Protocol: Document 06/09/24 14:23 SP (Rec: 06/09/24 16:28 SP [id number]) Out-Patient Physical Therapy Visit Information Visit Information Visit Type Treatment Note Visit Note KX modifier is Shawna, pt goes by Jesse Progress note on 06/13/24 Visit Start Time 14:30 Visit Stop Time 15:33 Visit Number 15 Number of INDUCTION HEATING EQUIPMENT SETTER Visits 1 Evaluation Information Evaluation Date 05/03/24 Precautions Precautions Keep an eye on BP as needed PT-OP-B Current Condition Start: 04/28/24 07:48 Freq: Status: Active Protocol: Document 05/03/24 11:24 MB (Rec: 05/03/24 12:07 MB [id number]) Current Condition History of Current Condition Onset Date 2007 tremors left hand, now B Current Complaints Imbalance History of Current Condition Pt had speech therapy to work on swallowing d/t choking. Pt is getting palliative care physician to help with alignment. Pt is biking on stationary bike 30 minutes every morning, weight lifting 3x/wk and occ biking outside. He fell off bike a year ago and broke his left thumb. He had trouble keeping his balance on his bike. Pt has 20 steps to enter home and uses a rail to get in home. 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 Pt is s/p DBS 11/07/19. He has a double DBS. He does not take any medications. Pt does not get light-headed when he gets up. He is just stiff when he gets up. Pt notices he bumps into things to the sides and forward. He tends to lean over to the right. Pt wears a support belt to help as well as compression undershirt. Pt drinks a lot in the morning including low caffeinated drinks. Treatment Goals Patient/Caregiver Goals To improve balance and work on standing up straight PT-OP-C Subjective Start: 04/28/24 07:48 Freq: Status: Active Protocol: Document 06/09/24 14:23 SP (Rec: 06/09/24 16:28 SP [id number]) OP-PT Subjective Patient Comments Patient Comments Pt reports doing well. PT-OP-H Neuro Start: 04/28/24 07:48 Freq: Status: Active Protocol: Document 05/03/24 11:24 MB (Rec: 05/03/24 12:07 MB [id number]) Coordination Evaluation Upper Extremity Tests Left Finger to Nose Test Moderate Impairment Pronation/Supination Test Moderate Impairment Right Finger to Nose Test Minimal Impairment Pronation/Supination Test Minimal Impairment Lower Extremity Tests Left Alternate Heel to Knee; Heel to Toe Test Minimal Impairment Heel on Villegas Test Minimal Impairment Foot Tapping Test Minimal Impairment Right Alternate Heel to Knee; Heel to Toe Test Minimal Impairment Heel on Villegas Test Minimal Impairment Foot Tapping Test Minimal Impairment Vital Signs Comments Vital Signs Comments Orthostatic assessment with BP and HR in LUE: supine 152/82, 55; standing 136/68, 59; standing 1' 145/83, 62. PT-OP-K Range of Motion Start: 04/28/24 07:48 Freq: Status: Active Protocol: Document 05/03/24 11:24 MB (Rec: 05/03/24 12:07 MB [id number]) Finger Goniometric Range of Motion Finger ROM Limitations Comments L thumb has changes from old dislocation proximal phalanx and more recent fracture distal phalanx PT-OP-M Strength Start: 04/28/24 07:48 Freq: Status: Active Protocol: Document 05/03/24 11:24 MB (Rec: 05/03/24 12:07 MB [id number]) Shoulder Strength Shoulder Manual Muscle Testing Bilateral Flexion 5 Normal Elbow/Forearm Strength Elbow and Forearm Manual Muscle Testing Bilateral Extension (C7) 5 Normal Hip Strength Hip Manual Muscle Testing Bilateral Flexion (L2) 5 Normal Knee Strength Knee Manual Muscle Testing Bilateral Flexion (S2) 5 Normal Ankle/Foot Strength Ankle and Foot Manual Muscle Testing Bilateral Dorsiflexion (L4) 5 Normal Toe Strength Toe Manual Muscle Testing Left Great Toe Extension 5 Normal Right Great Toe Extension 5 Normal PT-OP-Q Treatments Start: 04/28/24 07:48 Freq: Status: Active Protocol: Document 06/09/24 14:23 SP (Rec: 06/09/24 16:28 SP [id number]) Therapeutic Exercises Sitting Exercises BIG sit to stand Equipment Used BIG chair Reps/Minutes 10 reps Comments good form. BIG side to side Equipment Used Big Chair Reps/Minutes 10 reps alternating Comments open full flicks BIG floor to ceiling Equipment Used BIG Chair Reps/Minutes 10 reps Comments Cues for chin tuck, open full flicks Standing Exercises Sideways rock and reach Equipment Used In front of mirror Reps/Minutes 20 alternating Comments Cues for controlled pacing rotation R and L, improved balance BIG rock and reach Reps/Minutes 10 reps each side Comments good form, loser arms & hands BIG backwards step Standing Exercise Name Improved,cued louder Equipment Used Better with smaller step Reps/Minutes 20 alternating reps Comments Slight imbal, over wt shift back and fwd, better self corrections rest rep BIG side step Equipment Used in front of mirror Reps/Minutes 20 reps alternating Comments improved flicks not as rigid coming back hands on lap BIG forward step Equipment Used in front of mirror Reps/Minutes 20 alternating reps Comments Cued flicks not as rigid coming back hands on lap Gait Training Gait Activity Dynamic Gait Level of Assistance clinic Distance/Duration several laps Comments Mini gab gait: forward gait one foot in between, grapevine over hurdles with crossing over gab front same foot one direction then other foot opposite direction, pt trialed crossing grapevine back stepping and LOB 1 foot landed on gab leg then 2nd foot stepped on balance beam foot trying to recovery and controlled fall to ground, INDUCTION HEATING EQUIPMENT SETTER tried assist recovery via gait belt and 1 UE (completed incident report). Cues for soft knees and to keep guille fwd, also long balance beam with focus on BIG steps challenging maintaining midline stability today, many LOB self recovery step downs. Trialed side stepping through hurdles 2 feet between then side stepping balance beam challenging, CGA. Added ski cones walking, clockwise RLE, counterclockwise LLE alternating LEs through 10 cones, improved decrease heel strike with cuing. Gait pattern and guille work Description BIG Walking Distance/Duration ER hallway Comments Forward gait 101-103 BPM, backwards 89 (improved toe heel after few feet of toe walking backwards) and down steps 89 BPM and up steps 93 BPM and cues for form, not for speed, to keep BIG foot landing not scuff or hard stomp more controlled handing and BIG arm swing PT-OP-T Assessment and Plan Start: 04/28/24 07:48 Freq: Status: Active Protocol: Document 06/09/24 14:23 SP (Rec: 06/09/24 16:28 SP [id number]) Physical Therapy Assessment Goals 3 Impairment Lack of HEP Impairment . Farm Supervisor Goal (LTG) Pt will perform BIG exercises with I to improve amplitude of movements and overall functional mobility. 05/30/24: Pt is performing his BIG exercises at home. He has some challenges and is not yet performing alternating exercises. LTG Duration 4 weeks 2 Impairment Evidence of imbalance Impairment . Penitentiary Goal (LTG) Pt will perform WNLs on FGA to decrease fall risk. 05/30/24: FGA score is 18/30 LTG Duration 4 weeks 1 Impairment Impaired gait Impairment . Penitentiary Goal (LTG) Pt will gait train at least 1716 feet in 6 minutes with improved B arm swing and foot clearance to improve community ambulation. 05/30/24: Pt gait trains 1670 feet in 6 minutes at 108 BPM metronome and cues to keep legs loose and big left hand LTG Duration 4 weeks Assessment Summary Assessment Pt continues to progress with BIG exercises today, only 2 deviations to right during back step self corrections. Improves back stepping toe heel patterning after few feet of toe walking backwards. Pt continued trial of grapevine in hurdles, LOB during cross over back stepping and had controlled fall. Pt stated felt fine, just lost his balance to the floor, declined need for further assessment, requested continued treatment. Progressed ski stepping with cones today, time spent wt shift and proper patterning, CGA. Better stability than lateral gab stepping and balance beam today. Pt was aware INDUCTION HEATING EQUIPMENT SETTER will submit incident report end of tx and contacted primary PT and JOSE for awareness. Physical Therapy Plan Frequency and Duration Frequency of Treatment 4x/wk Duration of treatment (weeks) 4 Plan of Care Start Date 05/30/24 Plan of Care End Date 07/01/24 Therapeutic Interventions Therapeutic Interventions Balance Training,Canalithic Repositioning,Coordination Training,Gait Training,Home Exercise Program,Joint Mobilizations,Neuromuscular Re -education,Patient/Caregiver Education,Self-Care/Home Management,Soft Tissue Mobilization,Taping, Therapeutic Activities, Therapeutic Exercises Modalities Cold Pack/Ice Massage,Electric Stimulation,Hot Packs, Ultrasound Next Visit Focus/Plan Next Note Type Treatment Note Next Visit Plan Try not to increase guille anymore with metronome as pt tends to go fast and culver and lose balance and not keep BIG and controlled movement Gait training with metronome for speed 101-103 bpm forward, 89 bpm backwards and down steps and 93 bpm up steps, and soft step step down LLE less rigid, bending down deep, con' t to work on not overshooting. Continue gait with holding cup on carpet, future ankle weights
--- NOTE | 2024-06-12 08:35 | PT-OP ANOTE ---
ASSISTANT FIELD HOCKEY COACH calls PT after hours after pt's LOB to floor on 06/08/24. PT calls pt to check in today and he is unavailable. PT and ASSISTANT FIELD HOCKEY COACH discussed pt's two LOB episodes in two consecutive days last week (with episode with PT self-recovered and no LOB to floor) and pt's decreased ability to keep up guille with BIG gait noted last week. Pt may benefit from checking in with Dr. Zamora for possible DBS check and/or other medical check. Will communicate with pt during his treatment next date. Con't PT per plan and will discontinue any activities that he cannot tolerate as appropriate during sessions.
--- NOTE | 2024-06-13 07:27 | PT-OP ANOTE ---
MATRIX DRIER TENDER calls PT after hours after pt with controlled lowering to ground on 06/09/24 during treatment. Pt also with LOB that was self-corrected with step strategy during 06/08/24 treatment with PT. Pt with increased imbalance and difficulty with keeping up guille with BIG gait noted last week. Pt may benefit from checking in with Dr. Zamoar for possible DBS check and/or other medical check. Con't PT per plan and will discontinue any activities that he cannot tolerate as appropriate during sessions. PT attempts to call pt and last date but they were unavailable.
--- NOTE | 2024-06-13 15:27 | PT.OTN ---
Current Diagnoses Parkinson's disease without dyskinesia, with fluctuations (06/13/24) Physical Therapy Treatment Note PT-OP-A Visit Information Start: 04/28/24 07:48 Freq: Status: Active Protocol: Document 06/13/24 14:29 MB (Rec: 06/13/24 15:27 MB [id number]) Out-Patient Physical Therapy Visit Information Visit Information Visit Type Progress Note Visit Note KX modifier is Shawna, pt goes by Jesse Visit Start Time 14:30 Visit Stop Time 15:27 Visit Number 16 Number of FLAKE CUTTER OPERATOR Visits 0 Evaluation Information Evaluation Date 05/03/24 Precautions Precautions Keep an eye on BP as needed PT-OP-B Current Condition Start: 04/28/24 07:48 Freq: Status: Active Protocol: Document 05/03/24 11:24 MB (Rec: 05/03/24 12:07 MB [id number]) Current Condition History of Current Condition Onset Date 2007 tremors left hand, now B Current Complaints Imbalance History of Current Condition Pt had speech therapy to work on swallowing d/t choking. Pt is getting care navigator to help with alignment. Pt is biking on stationary bike 30 minutes every morning, weight lifting 3x/wk and occ biking outside. He fell off bike a year ago and broke his left thumb. He had trouble keeping his balance on his bike. Pt has 20 steps to enter home and uses a rail to get in home. 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 Pt is s/p DBS 11/07/19. He has a double DBS. He does not take any medications. Pt does not get light-headed when he gets up. He is just stiff when he gets up. Pt notices he bumps into things to the sides and forward. He tends to lean over to the right. Pt wears a support belt to help as well as compression undershirt. Pt drinks a lot in the morning including low caffeinated drinks. Treatment Goals Patient/Caregiver Goals To improve balance and work on standing up straight PT-OP-C Subjective Start: 04/28/24 07:48 Freq: Status: Active Protocol: Document 06/13/24 14:29 MB (Rec: 06/13/24 15:27 MB [id number]) OP-PT Subjective Patient Comments Patient Comments When PT asks pt if he has noticed being a little more imbalanced over the past week, he states that sometimes he is more tired than others depending on what he has eaten and how much sleep he has gotten. Pt has an appointment with Dr. Zamora next month. Pt feels like he has more balance since starting BIG. He is doing exercises 2x/day on non- therapy days and once a day on therapy days. The more he moves, the better he feels. PT-OP-H Neuro Start: 04/28/24 07:48 Freq: Status: Active Protocol: Document 05/03/24 11:24 MB (Rec: 05/03/24 12:07 MB [id number]) Coordination Evaluation Upper Extremity Tests Left Finger to Nose Test Moderate Impairment Pronation/Supination Test Moderate Impairment Right Finger to Nose Test Minimal Impairment Pronation/Supination Test Minimal Impairment Lower Extremity Tests Left Alternate Heel to Knee; Heel to Toe Test Minimal Impairment Heel on Villegas Test Minimal Impairment Foot Tapping Test Minimal Impairment Right Alternate Heel to Knee; Heel to Toe Test Minimal Impairment Heel on Villegas Test Minimal Impairment Foot Tapping Test Minimal Impairment Vital Signs Comments Vital Signs Comments Orthostatic assessment with BP and HR in LUE: supine 152/82, 55; standing 136/68, 59; standing 1' 145/83, 62. PT-OP-K Range of Motion Start: 04/28/24 07:48 Freq: Status: Active Protocol: Document 05/03/24 11:24 MB (Rec: 05/03/24 12:07 MB [id number]) Finger Goniometric Range of Motion Finger ROM Limitations Comments L thumb has changes from old dislocation proximal phalanx and more recent fracture distal phalanx PT-OP-M Strength Start: 04/28/24 07:48 Freq: Status: Active Protocol: Document 05/03/24 11:24 MB (Rec: 05/03/24 12:07 MB [id number]) Shoulder Strength Shoulder Manual Muscle Testing Bilateral Flexion 5 Normal Elbow/Forearm Strength Elbow and Forearm Manual Muscle Testing Bilateral Extension (C7) 5 Normal Hip Strength Hip Manual Muscle Testing Bilateral Flexion (L2) 5 Normal Knee Strength Knee Manual Muscle Testing Bilateral Flexion (S2) 5 Normal Ankle/Foot Strength Ankle and Foot Manual Muscle Testing Bilateral Dorsiflexion (L4) 5 Normal Toe Strength Toe Manual Muscle Testing Left Great Toe Extension 5 Normal Right Great Toe Extension 5 Normal PT-OP-Q Treatments Start: 04/28/24 07:48 Freq: Status: Active Protocol: Document 06/13/24 14:29 MB (Rec: 06/13/24 15:27 MB [id number]) Therapeutic Activity Therapeutic Activity Orthostatic assessment Comments CGA and BP and HR LUE: supine 136/78, 56; standing 128/66, 69; standing 1' 125/69, 63; standing 2' 111/63, 71; standing 3' 120/70, 74. Gait Training Gait Activity Gait pattern and guille work Description BIG walking Distance/Duration Gym today Comments Forward gait at 103 or 108 BPM mildly helps gait form today, backwards gait at 89 BPM today has decreased balance control today and perform each of these guille gaits only a few minutes today. 6MWT Comments 06/13/24: No metronome today and cues to loosen arms, BIG hands and BIG feet, clearing feet d/t rigid presentation and pt gait trains 1661 feet. It appears that he walks better/further with the auditory cues from the metronome Neuro Re-Education Treatment Balance Activities FGA Comments FGA today: Score is 20/30 and pt has improvements with steps , backwards walking, walking with EC and tandem Self-Care/Home Management Treatment Education Patient Education Safety Other Education Handouts and education about orthostatic hypotension and handouts include APDA neurogenic orthostatic hypotension, Ask Me 3 Handout and things to do and not to do , pt has compression tank top he wears and this may be a good option for him PT-OP-T Assessment and Plan Start: 04/28/24 07:48 Freq: Status: Active Protocol: Document 06/13/24 14:29 MB (Rec: 06/13/24 15:27 MB [id number]) Physical Therapy Assessment Rehab Potential Rehabilitation Potential Good Evaluation Complexity Number of Personal Factors/Comorbidities 1-2 Number of Body Systems Impaired 3 Clinical Presentation at Evaluation Evolving Impairments Impairments Activity Tolerance,Balance, Coordination,Functional Activities,Functional Mobility ,Gait,Pain,Posture,ROM,Soft Tissue Mobility,Strength, Transfers Goals 3 Impairment Lack of HEP Director Of Quality Control Goal (LTG) Pt will perform BIG exercises with I to improve amplitude of movements and overall functional mobility. 05/30/24: Pt is performing his BIG exercises at home. He has some challenges and is not yet performing alternating exercises. 06/13/24: Pt is performing his BIG exercises as instructed and BIG walking LTG Duration 4 weeks 2 Impairment Evidence of imbalance Director Of Quality Control Goal (LTG) Pt will perform WNLs on FGA to decrease fall risk. 05/30/24: FGA score is 18/30 06/13/24: Score is 20/30 and pt has improvements with steps, backwards walking, walking with EC and tandem LTG Duration 4 weeks 1 Impairment Impaired gait Director Of Quality Control Goal (LTG) Pt will gait train at least 1716 feet in 6 minutes with improved B arm swing and foot clearance to improve community ambulation. 05/30/24: Pt gait trains 1670 feet in 6 minutes at 108 BPM metronome and cues to keep legs loose and big left hand 06/13/24: No metronome today and cues to loosen arms, BIG hands and BIG feet, clearing feet d/t rigid presentation and pt gait trains 1661 feet. It appears that he walks better/further with the auditory cues from the metronome LTG Duration 4 weeks Assessment Summary Assessment Pt is orthostatic today with both systolic and diastolic drops of 15 mmHg. Gait distance in 6 minutes is slower than with metronome, as used last testing date. He makes improvements in FGA and he has been working on some of the components during BIG gait treatments. Physical Therapy Plan Frequency and Duration Frequency of Treatment 4x/wk Duration of treatment (weeks) 4 Plan of Care Start Date 05/30/24 Plan of Care End Date 07/01/24 Therapeutic Interventions Therapeutic Interventions Balance Training,Canalithic Repositioning,Coordination Training,Gait Training,Home Exercise Program,Joint Mobilizations,Neuromuscular Re -education,Patient/Caregiver Education,Self-Care/Home Management,Soft Tissue Mobilization,Taping, Therapeutic Activities, Therapeutic Exercises Modalities Cold Pack/Ice Massage,Electric Stimulation,Hot Packs, Ultrasound Next Visit Focus/Plan Next Note Type Treatment Note Next Visit Plan Try not to increase guille anymore with metronome as pt tends to go fast and culver and lose balance and not keep BIG and controlled movement Gait training with metronome for speed 101-103 bpm forward, 89 bpm backwards and down steps and 93 bpm up steps, and soft step step down LLE less rigid, bending down deep, con' t to work on not overshooting. Continue gait with holding cup on carpet, future ankle weights
--- NOTE | 2024-06-14 15:39 | PT.OTN ---
Current Diagnoses Parkinson's disease without dyskinesia, with fluctuations (06/14/24) Physical Therapy Treatment Note PT-OP-A Visit Information Start: 04/28/24 07:48 Freq: Status: Active Protocol: Document 06/14/24 14:39 SP (Rec: 06/14/24 15:51 SP [id number]) Out-Patient Physical Therapy Visit Information Visit Information Visit Type Treatment Note Visit Note KX modifier is Shawna, pt goes by Jesse Visit Start Time 14:39 Visit Stop Time 15:39 Visit Number 17 Number of AUTOMOTIVE DETAILER Visits 1 Evaluation Information Evaluation Date 05/03/24 Precautions Precautions Keep an eye on BP as needed PT-OP-B Current Condition Start: 04/28/24 07:48 Freq: Status: Active Protocol: Document 05/03/24 11:24 MB (Rec: 05/03/24 12:07 MB [id number]) Current Condition History of Current Condition Onset Date 2007 tremors left hand, now B Current Complaints Imbalance History of Current Condition Pt had speech therapy to work on swallowing d/t choking. Pt is getting residential care officer to help with alignment. Pt is biking on stationary bike 30 minutes every morning, weight lifting 3x/wk and occ biking outside. He fell off bike a year ago and broke his left thumb. He had trouble keeping his balance on his bike. Pt has 20 steps to enter home and uses a rail to get in home. 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 Pt is s/p DBS 11/07/19. He has a double DBS. He does not take any medications. Pt does not get light-headed when he gets up. He is just stiff when he gets up. Pt notices he bumps into things to the sides and forward. He tends to lean over to the right. Pt wears a support belt to help as well as compression undershirt. Pt drinks a lot in the morning including low caffeinated drinks. Treatment Goals Patient/Caregiver Goals To improve balance and work on standing up straight PT-OP-C Subjective Start: 04/28/24 07:48 Freq: Status: Active Protocol: Document 06/14/24 14:39 SP (Rec: 06/14/24 15:51 SP [id number]) OP-PT Subjective Patient Comments Patient Comments Pt reports PT-OP-H Neuro Start: 04/28/24 07:48 Freq: Status: Active Protocol: Document 05/03/24 11:24 MB (Rec: 05/03/24 12:07 MB [id number]) Coordination Evaluation Upper Extremity Tests Left Finger to Nose Test Moderate Impairment Pronation/Supination Test Moderate Impairment Right Finger to Nose Test Minimal Impairment Pronation/Supination Test Minimal Impairment Lower Extremity Tests Left Alternate Heel to Knee; Heel to Toe Test Minimal Impairment Heel on Villegas Test Minimal Impairment Foot Tapping Test Minimal Impairment Right Alternate Heel to Knee; Heel to Toe Test Minimal Impairment Heel on Villegas Test Minimal Impairment Foot Tapping Test Minimal Impairment Vital Signs Comments Vital Signs Comments Orthostatic assessment with BP and HR in LUE: supine 152/82, 55; standing 136/68, 59; standing 1' 145/83, 62. PT-OP-K Range of Motion Start: 04/28/24 07:48 Freq: Status: Active Protocol: Document 05/03/24 11:24 MB (Rec: 05/03/24 12:07 MB [id number]) Finger Goniometric Range of Motion Finger ROM Limitations Comments L thumb has changes from old dislocation proximal phalanx and more recent fracture distal phalanx PT-OP-M Strength Start: 04/28/24 07:48 Freq: Status: Active Protocol: Document 05/03/24 11:24 MB (Rec: 05/03/24 12:07 MB [id number]) Shoulder Strength Shoulder Manual Muscle Testing Bilateral Flexion 5 Normal Elbow/Forearm Strength Elbow and Forearm Manual Muscle Testing Bilateral Extension (C7) 5 Normal Hip Strength Hip Manual Muscle Testing Bilateral Flexion (L2) 5 Normal Knee Strength Knee Manual Muscle Testing Bilateral Flexion (S2) 5 Normal Ankle/Foot Strength Ankle and Foot Manual Muscle Testing Bilateral Dorsiflexion (L4) 5 Normal Toe Strength Toe Manual Muscle Testing Left Great Toe Extension 5 Normal Right Great Toe Extension 5 Normal PT-OP-Q Treatments Start: 04/28/24 07:48 Freq: Status: Active Protocol: Document 06/14/24 14:39 SP (Rec: 06/14/24 15:51 SP [id number]) Therapeutic Exercises Sitting Exercises BIG sit to stand Equipment Used BIG chair Reps/Minutes 10 reps Comments chin tuck with counting BIG side to side Equipment Used Big Chair Reps/Minutes 20 reps alternating Comments open full flicks, counting BIG floor to ceiling Equipment Used BIG Chair Reps/Minutes 10 reps Comments modeled full open flicks, counting Standing Exercises Sideways rock and reach Equipment Used In front of mirror Reps/Minutes 20 alternating Comments Cues for controlled rotation, improved stability BIG rock and reach Reps/Minutes 10 reps each side Comments good form, loser arms & hands BIG backwards step Standing Exercise Name Improved,cued louder Equipment Used Better with smaller step Reps/Minutes 20 alternating reps Comments Slight imbal tandem 1 rep, improved rest BIG side step Equipment Used in front of mirror Reps/Minutes 20 reps alternating Comments improved flicks 1 cue BIG forward step Equipment Used in front of mirror Reps/Minutes 20 alternating reps Comments Cued flicks not as rigid, smaller stride Gait Training Gait Activity Dynamic Gait Level of Assistance obstacle course, all together and separate Distance/Duration several laps Comments Mini gab gait: forward gait reciprocal stepping mat, cones skiing, Balance beam, single step. Gait pattern and guille work Description BIG walking Distance/Duration Gym today Comments Forward gait at 103 today, backwards gait at 89 BPM today has decreased balance control today and perform each of these guille gaits only a few minutes today. PT-OP-T Assessment and Plan Start: 04/28/24 07:48 Freq: Status: Active Protocol: Document 06/14/24 14:39 SP (Rec: 06/14/24 15:51 SP [id number]) Physical Therapy Assessment Goals 3 Impairment Lack of HEP Impairment . Field Administrative Assistant Goal (LTG) Pt will perform BIG exercises with I to improve amplitude of movements and overall functional mobility. 05/30/24: Pt is performing his BIG exercises at home. He has some challenges and is not yet performing alternating exercises. 06/13/24: Pt is performing his BIG exercises as instructed and BIG walking LTG Duration 4 weeks 2 Impairment Evidence of imbalance Impairment . Field Administrative Assistant Goal (LTG) Pt will perform WNLs on FGA to decrease fall risk. 05/30/24: FGA score is 18/30 06/13/24: Score is 20/30 and pt has improvements with steps, backwards walking, walking with EC and tandem LTG Duration 4 weeks 1 Impairment Impaired gait Impairment . Half-Way Goal (LTG) Pt will gait train at least 1716 feet in 6 minutes with improved B arm swing and foot clearance to improve community ambulation. 05/30/24: Pt gait trains 1670 feet in 6 minutes at 108 BPM metronome and cues to keep legs loose and big left hand 06/13/24: No metronome today and cues to loosen arms, BIG hands and BIG feet, clearing feet d/t rigid presentation and pt gait trains 1661 feet. It appears that he walks better/further with the auditory cues from the metronome LTG Duration 4 weeks Assessment Summary Assessment Pt improved form with ther ex today, 1 LOB self corrections use mirror and model AUTOMOTIVE DETAILER. Continued suggested guille ER Hallway 103 forward, 89 backwards and [place], 93 stair mgt, improved decreased ridgid stepping today with relaxed arms swing, incorporated pivot turns. Cues for softer stepping hurdles and L foot descend 1 step (not lock out knee)while try keep up even guille and posture with scap and TA engagment with normal step length on bal beam,2 instances vier to side due to large step CG/Yandel recovery. Improved patterning skiing through cones SBA. Physical Therapy Plan Frequency and Duration Frequency of Treatment 4x/wk Duration of treatment (weeks) 4 Plan of Care Start Date 05/30/24 Plan of Care End Date 07/01/24 Therapeutic Interventions Therapeutic Interventions Balance Training,Canalithic Repositioning,Coordination Training,Gait Training,Home Exercise Program,Joint Mobilizations,Neuromuscular Re -education,Patient/Caregiver Education,Self-Care/Home Management,Soft Tissue Mobilization,Taping, Therapeutic Activities, Therapeutic Exercises Modalities Cold Pack/Ice Massage,Electric Stimulation,Hot Packs, Ultrasound Next Visit Focus/Plan Next Note Type Treatment Note Next Visit Plan Try not to increase guille anymore with metronome as pt tends to go fast and culver and lose balance and not keep BIG and controlled movement Gait training with metronome for speed 101-103 bpm forward, 89 bpm backwards and down steps and 93 bpm up steps, and soft step step down LLE less rigid, bending down deep, con' t to work on not overshooting. Next tx continue back metronome back to 108 as previous PT tx and consider ankle wts. Continue gait with holding cup on carpet.
--- NOTE | 2024-06-15 15:42 | PT.OTN ---
Current Diagnoses Parkinson's disease without dyskinesia, with fluctuations (06/15/24) Physical Therapy Treatment Note PT-OP-A Visit Information Start: 04/28/24 07:48 Freq: Status: Active Protocol: Document 06/15/24 14:32 MB (Rec: 06/15/24 15:41 MB [id number]) Out-Patient Physical Therapy Visit Information Visit Information Visit Type Treatment Note Visit Note KX modifier is Shawna, pt goes by Jesse Visit Start Time 14:32 Visit Stop Time 15:30 Visit Number 18 Number of FLIGHT OPERATIONS MANAGER Visits 0 Evaluation Information Evaluation Date 05/03/24 Precautions Precautions Keep an eye on BP as needed PT-OP-B Current Condition Start: 04/28/24 07:48 Freq: Status: Active Protocol: Document 05/03/24 11:24 MB (Rec: 05/03/24 12:07 MB [id number]) Current Condition History of Current Condition Onset Date 2007 tremors left hand, now B Current Complaints Imbalance History of Current Condition Pt had speech therapy to work on swallowing d/t choking. Pt is getting health care coordinator to help with alignment. Pt is biking on stationary bike 30 minutes every morning, weight lifting 3x/wk and occ biking outside. He fell off bike a year ago and broke his left thumb. He had trouble keeping his balance on his bike. Pt has 20 steps to enter home and uses a rail to get in home. 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 Pt is s/p DBS 11/07/19. He has a double DBS. He does not take any medications. Pt does not get light-headed when he gets up. He is just stiff when he gets up. Pt notices he bumps into things to the sides and forward. He tends to lean over to the right. Pt wears a support belt to help as well as compression undershirt. Pt drinks a lot in the morning including low caffeinated drinks. Treatment Goals Patient/Caregiver Goals To improve balance and work on standing up straight PT-OP-C Subjective Start: 04/28/24 07:48 Freq: Status: Active Protocol: Document 06/14/24 14:39 SP (Rec: 06/14/24 15:51 SP [id number]) OP-PT Subjective Patient Comments Patient Comments Pt reports PT-OP-H Neuro Start: 04/28/24 07:48 Freq: Status: Active Protocol: Document 05/03/24 11:24 MB (Rec: 05/03/24 12:07 MB [id number]) Coordination Evaluation Upper Extremity Tests Left Finger to Nose Test Moderate Impairment Pronation/Supination Test Moderate Impairment Right Finger to Nose Test Minimal Impairment Pronation/Supination Test Minimal Impairment Lower Extremity Tests Left Alternate Heel to Knee; Heel to Toe Test Minimal Impairment Heel on Villegas Test Minimal Impairment Foot Tapping Test Minimal Impairment Right Alternate Heel to Knee; Heel to Toe Test Minimal Impairment Heel on Villegas Test Minimal Impairment Foot Tapping Test Minimal Impairment Vital Signs Comments Vital Signs Comments Orthostatic assessment with BP and HR in LUE: supine 152/82, 55; standing 136/68, 59; standing 1' 145/83, 62. PT-OP-K Range of Motion Start: 04/28/24 07:48 Freq: Status: Active Protocol: Document 05/03/24 11:24 MB (Rec: 05/03/24 12:07 MB [id number]) Finger Goniometric Range of Motion Finger ROM Limitations Comments L thumb has changes from old dislocation proximal phalanx and more recent fracture distal phalanx PT-OP-M Strength Start: 04/28/24 07:48 Freq: Status: Active Protocol: Document 05/03/24 11:24 MB (Rec: 05/03/24 12:07 MB [id number]) Shoulder Strength Shoulder Manual Muscle Testing Bilateral Flexion 5 Normal Elbow/Forearm Strength Elbow and Forearm Manual Muscle Testing Bilateral Extension (C7) 5 Normal Hip Strength Hip Manual Muscle Testing Bilateral Flexion (L2) 5 Normal Knee Strength Knee Manual Muscle Testing Bilateral Flexion (S2) 5 Normal Ankle/Foot Strength Ankle and Foot Manual Muscle Testing Bilateral Dorsiflexion (L4) 5 Normal Toe Strength Toe Manual Muscle Testing Left Great Toe Extension 5 Normal Right Great Toe Extension 5 Normal PT-OP-Q Treatments Start: 04/28/24 07:48 Freq: Status: Active Protocol: Document 06/15/24 14:32 MB (Rec: 06/15/24 15:41 MB [id number]) Therapeutic Exercises Sitting Exercises BIG sit to stand Equipment Used BIG chair, 2 lb ankle weights Reps/Minutes 10 reps BIG side to side Equipment Used BIG chair, 2 lb ankle weights Reps/Minutes 20 reps alternating Comments Cues to flick with elbow, too, move leg only with rep BIG floor to ceiling Equipment Used BIG chair, 2 lb ankle weights Reps/Minutes 10 reps Comments Modeled full flicks with elbows, too Standing Exercises Sideways rock and reach Equipment Used In front of mirror, 2 lb ankle weights Reps/Minutes 20 alternating Comments Improved BIG rock and reach Equipment Used In front of mirror, 2 lb ankle weights Reps/Minutes 10 reps each side Comments Improved BIG backwards step Standing Exercise Name Most trouble with this one Equipment Used In front of mirror, 2 lb ankle weights Reps/Minutes 20 alternating reps Comments After 10 reps, LOB and slowed and corrected, rigid wrists BIG side step Equipment Used In front of mirror, 2 lb ankle weights Reps/Minutes 20 reps alternating Comments Improved BIG forward step Equipment Used In front of mirror, 2 lb ankle weights Reps/Minutes 20 alternating reps Comments Improved, cues for big PAULA Gait Training Gait Activity Gait pattern and guille work Comments 2 lb ankle weights forward walking 103 BPM and backwards walking 89 BPM Neuro Re-Education Treatment Balance Activities Ball passing balance activities Comments Chest and bounce passes with basketball, 2 lb ankle weights donned, tandem standing, then cognitive challenges calling out sports or fabrics and then walking in circles and bounce passes one direction and then another, superv PT-OP-T Assessment and Plan Start: 04/28/24 07:48 Freq: Status: Active Protocol: Document 06/15/24 14:32 MB (Rec: 06/15/24 15:41 MB [id number]) Physical Therapy Assessment Rehab Potential Rehabilitation Potential Good Evaluation Complexity Number of Personal Factors/Comorbidities 1-2 Number of Body Systems Impaired 3 Clinical Presentation at Evaluation Evolving Impairments Impairments Activity Tolerance,Balance, Coordination,Functional Activities,Functional Mobility ,Gait,Pain,Posture,ROM,Soft Tissue Mobility,Strength, Transfers Goals 3 Impairment Lack of HEP Electrical/Instrument Technician Goal (LTG) Pt will perform BIG exercises with I to improve amplitude of movements and overall functional mobility. 05/30/24: Pt is performing his BIG exercises at home. He has some challenges and is not yet performing alternating exercises. 06/13/24: Pt is performing his BIG exercises as instructed and BIG walking LTG Duration 4 weeks 2 Impairment Evidence of imbalance Intermediate Goal (LTG) Pt will perform WNLs on FGA to decrease fall risk. 05/30/24: FGA score is 18/30 06/13/24: Score is 20/30 and pt has improvements with steps, backwards walking, walking with EC and tandem LTG Duration 4 weeks 1 Impairment Impaired gait Electrical/Instrument Technician Goal (LTG) Pt will gait train at least 1716 feet in 6 minutes with improved B arm swing and foot clearance to improve community ambulation. 05/30/24: Pt gait trains 1670 feet in 6 minutes at 108 BPM metronome and cues to keep legs loose and big left hand 06/13/24: No metronome today and cues to loosen arms, BIG hands and BIG feet, clearing feet d/t rigid presentation and pt gait trains 1661 feet. It appears that he walks better/further with the auditory cues from the metronome LTG Duration 4 weeks Assessment Summary Assessment Progressed exercises, balance and gait with 2lb ankle weights today. Added ball tossing and balance with cognitive task and the cognitive task was very challenging for pt. Physical Therapy Plan Frequency and Duration Frequency of Treatment 4x/wk Duration of treatment (weeks) 4 Plan of Care Start Date 05/30/24 Plan of Care End Date 07/01/24 Therapeutic Interventions Therapeutic Interventions Balance Training,Canalithic Repositioning,Coordination Training,Gait Training,Home Exercise Program,Joint Mobilizations,Neuromuscular Re -education,Patient/Caregiver Education,Self-Care/Home Management,Soft Tissue Mobilization,Taping, Therapeutic Activities, Therapeutic Exercises Modalities Cold Pack/Ice Massage,Electric Stimulation,Hot Packs, Ultrasound Next Visit Focus/Plan Next Note Type Treatment Note Next Visit Plan 2 lb ankle weights for exercises and gait (progress to 3 lb), gait training with metronome for speed 101-103 bpm forward, 89 bpm backwards and down steps and 93 bpm up steps, and soft step step down LLE less rigid, bending down deep, con't to work on not overshooting. Added balance exercises with ball tossing
--- NOTE | 2024-06-16 15:37 | PT.OTN ---
Current Diagnoses Parkinson's disease without dyskinesia, with fluctuations (06/16/24) Physical Therapy Treatment Note PT-OP-A Visit Information Start: 04/28/24 07:48 Freq: Status: Active Protocol: Document 06/16/24 14:38 SP (Rec: 06/16/24 15:48 SP [id number]) Out-Patient Physical Therapy Visit Information Visit Information Visit Type Treatment Note Visit Note KX modifier is Shawna, pt goes by Jesse Visit Start Time 14:37 Visit Stop Time 15:37 Visit Number 19 Number of PLATFORM MATERIAL HANDLER MANAGER Visits 1 Evaluation Information Evaluation Date 05/03/24 Precautions Precautions Keep an eye on BP as needed PT-OP-B Current Condition Start: 04/28/24 07:48 Freq: Status: Active Protocol: Document 05/03/24 11:24 MB (Rec: 05/03/24 12:07 MB [id number]) Current Condition History of Current Condition Onset Date 2007 tremors left hand, now B Current Complaints Imbalance History of Current Condition Pt had speech therapy to work on swallowing d/t choking. Pt is getting care clinician to help with alignment. Pt is biking on stationary bike 30 minutes every morning, weight lifting 3x/wk and occ biking outside. He fell off bike a year ago and broke his left thumb. He had trouble keeping his balance on his bike. Pt has 20 steps to enter home and uses a rail to get in home. 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 Pt is s/p DBS 11/07/19. He has a double DBS. He does not take any medications. Pt does not get light-headed when he gets up. He is just stiff when he gets up. Pt notices he bumps into things to the sides and forward. He tends to lean over to the right. Pt wears a support belt to help as well as compression undershirt. Pt drinks a lot in the morning including low caffeinated drinks. Treatment Goals Patient/Caregiver Goals To improve balance and work on standing up straight PT-OP-C Subjective Start: 04/28/24 07:48 Freq: Status: Active Protocol: Document 06/16/24 14:38 SP (Rec: 06/16/24 15:48 SP [id number]) OP-PT Subjective Patient Comments Patient Comments Pt and PLATFORM MATERIAL HANDLER MANAGER were equally 7 min late. Pt needed use bathroom at arrival.He reports was tight after last tx. PT-OP-H Neuro Start: 04/28/24 07:48 Freq: Status: Active Protocol: Document 05/03/24 11:24 MB (Rec: 05/03/24 12:07 MB [id number]) Coordination Evaluation Upper Extremity Tests Left Finger to Nose Test Moderate Impairment Pronation/Supination Test Moderate Impairment Right Finger to Nose Test Minimal Impairment Pronation/Supination Test Minimal Impairment Lower Extremity Tests Left Alternate Heel to Knee; Heel to Toe Test Minimal Impairment Heel on Villegas Test Minimal Impairment Foot Tapping Test Minimal Impairment Right Alternate Heel to Knee; Heel to Toe Test Minimal Impairment Heel on Villegas Test Minimal Impairment Foot Tapping Test Minimal Impairment Vital Signs Comments Vital Signs Comments Orthostatic assessment with BP and HR in LUE: supine 152/82, 55; standing 136/68, 59; standing 1' 145/83, 62. PT-OP-K Range of Motion Start: 04/28/24 07:48 Freq: Status: Active Protocol: Document 05/03/24 11:24 MB (Rec: 05/03/24 12:07 [id number]) Finger Goniometric Range of Motion Finger ROM Limitations Comments L thumb has changes from old dislocation proximal phalanx and more recent fracture distal phalanx PT-OP-M Strength Start: 04/28/24 07:48 Freq: Status: Active Protocol: Document 05/03/24 11:24 MB (Rec: 05/03/24 12:07 [id number]) Shoulder Strength Shoulder Manual Muscle Testing Bilateral Flexion 5 Normal Elbow/Forearm Strength Elbow and Forearm Manual Muscle Testing Bilateral Extension (C7) 5 Normal Hip Strength Hip Manual Muscle Testing Bilateral Flexion (L2) 5 Normal Knee Strength Knee Manual Muscle Testing Bilateral Flexion (S2) 5 Normal Ankle/Foot Strength Ankle and Foot Manual Muscle Testing Bilateral Dorsiflexion (L4) 5 Normal Toe Strength Toe Manual Muscle Testing Left Great Toe Extension 5 Normal Right Great Toe Extension 5 Normal PT-OP-Q Treatments Start: 04/28/24 07:48 Freq: Status: Active Protocol: Document 06/16/24 14:38 SP (Rec: 06/16/24 15:48 SP [id number]) Therapeutic Exercises Sitting Exercises BIG sit to stand Equipment Used BIG chair, 3 lb ankle weights Reps/Minutes 10 reps Comments cued neutral head tuck BIG side to side Equipment Used BIG chair, 3 lb ankle weights Reps/Minutes 20 reps alternating Comments Cues to flick open fingers with elbow too, move leg only with rep BIG floor to ceiling Equipment Used BIG chair, 3 lb ankle weights Reps/Minutes 10 reps Comments Modeled full flicks with elbows, too Standing Exercises Sideways rock and reach Equipment Used 3 lb ankle weights Reps/Minutes 20 alternating Comments Cued hands out return then on lap, less voice with more rotation BIG rock and reach Equipment Used 3 lb ankle weights Reps/Minutes 10 reps each side Comments Improved BIG backwards step Standing Exercise Name Most trouble with this one Equipment Used 2 lb ankle weights Reps/Minutes 20 alternating reps Comments 1 slight LB flexion self recover, relax fingers, slower good form, BIG side step Equipment Used 3 lb ankle weights Reps/Minutes 20 reps alternating Comments Very good BIG forward step Equipment Used 2 lb ankle weights Reps/Minutes 20 alternating reps Comments Very good Gait Training Gait Activity Gait pattern and guille work Distance/Duration ER hallway Comments 3 lb ankle weights forward walking 103 BPM and backwards walking 89bpm, stairs 90 bpm ascend, 88bpm descending, return to gym fwd walking 101bpm due to tiring Neuro Re-Education Treatment Balance Activities Ball passing balance activities Details Cognitive challenge: calling out sport teams Surface outside ER level (bike rack area concrete) Comments 3lb wts donned: Bounce passes with basketball walking in [place] CW/CCW, NBOS> semi tandem standing chest pass, superv PT-OP-T Assessment and Plan Start: 04/28/24 07:48 Freq: Status: Active Protocol: Document 06/16/24 14:38 SP (Rec: 06/16/24 15:48 SP [id number]) Physical Therapy Assessment Goals 3 Impairment Lack of HEP Impairment . Fitter'S Assistant Goal (LTG) Pt will perform BIG exercises with I to improve amplitude of movements and overall functional mobility. 05/30/24: Pt is performing his BIG exercises at home. He has some challenges and is not yet performing alternating exercises. 06/13/24: Pt is performing his BIG exercises as instructed and BIG walking LTG Duration 4 weeks 2 Impairment Evidence of imbalance Impairment . Fitter'S Assistant Goal (LTG) Pt will perform WNLs on FGA to decrease fall risk. 05/30/24: FGA score is 18/30 06/13/24: Score is 20/30 and pt has improvements with steps, backwards walking, walking with EC and tandem LTG Duration 4 weeks 1 Impairment Impaired gait Impairment . Fitter'S Assistant Goal (LTG) Pt will gait train at least 1716 feet in 6 minutes with improved B arm swing and foot clearance to improve community ambulation. 05/30/24: Pt gait trains 1670 feet in 6 minutes at 108 BPM metronome and cues to keep legs loose and big left hand 06/13/24: No metronome today and cues to loosen arms, BIG hands and BIG feet, clearing feet d/t rigid presentation and pt gait trains 1661 feet. It appears that he walks better/further with the auditory cues from the metronome LTG Duration 4 weeks Assessment Summary Assessment Continue progression in strength and balance with increased 3lb leg wts on BLEs with cognitive task with time needed to respond. Pt self corrections increased posture and decreased stride with abililty to continue BIG form 103 bpm metronome walking and 89 backward stepping, cues for BIGGER heel lift toe then heel. Slightly slower bpm stair mgt with leg wts and return stride to 101 into gym due to report tiring. Physical Therapy Plan Frequency and Duration Frequency of Treatment 4x/wk Duration of treatment (weeks) 4 Plan of Care Start Date 05/30/24 Plan of Care End Date 07/01/24 Therapeutic Interventions Therapeutic Interventions Balance Training,Canalithic Repositioning,Coordination Training,Gait Training,Home Exercise Program,Joint Mobilizations,Neuromuscular Re -education,Patient/Caregiver Education,Self-Care/Home Management,Soft Tissue Mobilization,Taping, Therapeutic Activities, Therapeutic Exercises Modalities Cold Pack/Ice Massage,Electric Stimulation,Hot Packs, Ultrasound Next Visit Focus/Plan Next Note Type Treatment Note Next Visit Plan 3 lb ankle weights for exercises and gait, gait training with metronome for speed 101-103 bpm forward, 89 bpm backwards and down steps and 93 bpm up steps, and soft step step down LLE less rigid, bending down deep, con't to work on not overshooting. Continue balance exercises with ball tossing
--- NOTE | 2024-06-20 15:27 | PT.OTN ---
Current Diagnoses Parkinson's disease without dyskinesia, with fluctuations (06/20/24) Physical Therapy Treatment Note PT-OP-A Visit Information Start: 04/28/24 07:48 Freq: Status: Active Protocol: Document 06/20/24 14:31 MB (Rec: 06/20/24 15:26 MB [id number]) Out-Patient Physical Therapy Visit Information Visit Information Visit Type Treatment Note Visit Note KX modifier is Shawna, pt goes by Jesse *There was a scheduling snafu and pt was scheduled for speech at 1515, before the end of BIG and so shorter treatment Visit Start Time 14:31 Visit Stop Time 15:15 Visit Number 20 Number of CUPROUS CHLORIDE HELPER Visits 0 Evaluation Information Evaluation Date 05/03/24 Precautions Precautions Keep an eye on BP as needed PT-OP-B Current Condition Start: 04/28/24 07:48 Freq: Status: Active Protocol: Document 05/03/24 11:24 MB (Rec: 05/03/24 12:07 MB [id number]) Current Condition History of Current Condition Onset Date 2007 tremors left hand, now B Current Complaints Imbalance History of Current Condition Pt had speech therapy to work on swallowing d/t choking. Pt is getting resident care supervisor to help with alignment. Pt is biking on stationary bike 30 minutes every morning, weight lifting 3x/wk and occ biking outside. He fell off bike a year ago and broke his left thumb. He had trouble keeping his balance on his bike. Pt has 20 steps to enter home and uses a rail to get in home. 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 Pt is s/p DBS 11/07/19. He has a double DBS. He does not take any medications. Pt does not get light-headed when he gets up. He is just stiff when he gets up. Pt notices he bumps into things to the sides and forward. He tends to lean over to the right. Pt wears a support belt to help as well as compression undershirt. Pt drinks a lot in the morning including low caffeinated drinks. Treatment Goals Patient/Caregiver Goals To improve balance and work on standing up straight PT-OP-C Subjective Start: 04/28/24 07:48 Freq: Status: Active Protocol: Document 06/20/24 14:31 MB (Rec: 06/20/24 15:26 MB [id number]) OP-PT Subjective Patient Comments Patient Comments Pt is doing exercises and has no new reports. PT-OP-H Neuro Start: 04/28/24 07:48 Freq: Status: Active Protocol: Document 05/03/24 11:24 MB (Rec: 05/03/24 12:07 MB [id number]) Coordination Evaluation Upper Extremity Tests Left Finger to Nose Test Moderate Impairment Pronation/Supination Test Moderate Impairment Right Finger to Nose Test Minimal Impairment Pronation/Supination Test Minimal Impairment Lower Extremity Tests Left Alternate Heel to Knee; Heel to Toe Test Minimal Impairment Heel on Villegas Test Minimal Impairment Foot Tapping Test Minimal Impairment Right Alternate Heel to Knee; Heel to Toe Test Minimal Impairment Heel on Villegas Test Minimal Impairment Foot Tapping Test Minimal Impairment Vital Signs Comments Vital Signs Comments Orthostatic assessment with BP and HR in LUE: supine 152/82, 55; standing 136/68, 59; standing 1' 145/83, 62. PT-OP-K Range of Motion Start: 04/28/24 07:48 Freq: Status: Active Protocol: Document 05/03/24 11:24 MB (Rec: 05/03/24 12:07 MB [id number]) Finger Goniometric Range of Motion Finger ROM Limitations Comments L thumb has changes from old dislocation proximal phalanx and more recent fracture distal phalanx PT-OP-M Strength Start: 04/28/24 07:48 Freq: Status: Active Protocol: Document 05/03/24 11:24 MB (Rec: 05/03/24 12:07 MB [id number]) Shoulder Strength Shoulder Manual Muscle Testing Bilateral Flexion 5 Normal Elbow/Forearm Strength Elbow and Forearm Manual Muscle Testing Bilateral Extension (C7) 5 Normal Hip Strength Hip Manual Muscle Testing Bilateral Flexion (L2) 5 Normal Knee Strength Knee Manual Muscle Testing Bilateral Flexion (S2) 5 Normal Ankle/Foot Strength Ankle and Foot Manual Muscle Testing Bilateral Dorsiflexion (L4) 5 Normal Toe Strength Toe Manual Muscle Testing Left Great Toe Extension 5 Normal Right Great Toe Extension 5 Normal PT-OP-Q Treatments Start: 04/28/24 07:48 Freq: Status: Active Protocol: Document 06/20/24 14:31 MB (Rec: 06/20/24 15:26 MB [id number]) Therapeutic Exercises Sitting Exercises BIG sit to stand Equipment Used BIG chair, 3 lb ankle weights Reps/Minutes 10 reps BIG side to side Equipment Used BIG chair, 3 lb ankle weights Reps/Minutes 20 reps alternating Comments Cues to flick with elbow, too BIG floor to ceiling Equipment Used BIG chair, 3 lb ankle weights Reps/Minutes 10 reps Comments Cues to flick with elbow, too Standing Exercises Sideways rock and reach Equipment Used In front of mirror, 3 lb ankle weights Reps/Minutes 20 alternating Comments Improved BIG rock and reach Equipment Used In front of mirror, 3 lb ankle weights Reps/Minutes 10 reps each side Comments Improved BIG backwards step Standing Exercise Name Most trouble with this one Equipment Used In front of mirror, 3 lb ankle weights Reps/Minutes 20 alternating reps Comments Slower and cues for bigger base of support BIG side step Equipment Used In front of mirror, 3 lb ankle weights Reps/Minutes 20 reps alternating Comments Improved BIG forward step Equipment Used In front of mirror, 3 lb ankle weights Reps/Minutes 20 alternating reps Comments Improved, cues for big PAULA Gait Training Gait Activity Gait pattern and guille work Comments 3 lb ankle weights donned, forward guille in gym, outside and ED hallway with 103 BPM forward gait and 89 BPM backward gait and 89 BPM ascend and descend steps next to the rail Neuro Re-Education Treatment Balance Activities Ball passing balance activities Comments Walking side to side bounce pass and chest pass with cues to product picker feet and to keep guille as pt tends to do a jog step and one episode LOB with pt leaning into the glass wall, bounce pass in standing in tandem PT-OP-T Assessment and Plan Start: 04/28/24 07:48 Freq: Status: Active Protocol: Document 06/20/24 14:31 MB (Rec: 06/20/24 15:26 MB [id number]) Physical Therapy Assessment Rehab Potential Rehabilitation Potential Good Evaluation Complexity Number of Personal Factors/Comorbidities 1-2 Number of Body Systems Impaired 3 Clinical Presentation at Evaluation Evolving Impairments Impairments Activity Tolerance,Balance, Coordination,Functional Activities,Functional Mobility ,Gait,Pain,Posture,ROM,Soft Tissue Mobility,Strength, Transfers Goals 3 Impairment Lack of HEP Wealth Management Manager Goal (LTG) Pt will perform BIG exercises with I to improve amplitude of movements and overall functional mobility. 05/30/24: Pt is performing his BIG exercises at home. He has some challenges and is not yet performing alternating exercises. 06/13/24: Pt is performing his BIG exercises as instructed and BIG walking LTG Duration 4 weeks 2 Impairment Evidence of imbalance [facility] Goal (LTG) Pt will perform WNLs on FGA to decrease fall risk. 05/30/24: FGA score is 18/30 06/13/24: Score is 20/30 and pt has improvements with steps, backwards walking, walking with EC and tandem LTG Duration 4 weeks 1 Impairment Impaired gait Wealth Management Manager Goal (LTG) Pt will gait train at least 1716 feet in 6 minutes with improved B arm swing and foot clearance to improve community ambulation. 05/30/24: Pt gait trains 1670 feet in 6 minutes at 108 BPM metronome and cues to keep legs loose and big left hand 06/13/24: No metronome today and cues to loosen arms, BIG hands and BIG feet, clearing feet d/t rigid presentation and pt gait trains 1661 feet. It appears that he walks better/further with the auditory cues from the metronome LTG Duration 4 weeks Assessment Summary Assessment Pt makes small improvements with exercises, balance and gait. He does con't to have some LOB and is at increased risk for falls. Physical Therapy Plan Frequency and Duration Frequency of Treatment 4x/wk Duration of treatment (weeks) 4 Plan of Care Start Date 05/30/24 Plan of Care End Date 07/01/24 Therapeutic Interventions Therapeutic Interventions Balance Training,Canalithic Repositioning,Coordination Training,Gait Training,Home Exercise Program,Joint Mobilizations,Neuromuscular Re -education,Patient/Caregiver Education,Self-Care/Home Management,Soft Tissue Mobilization,Taping, Therapeutic Activities, Therapeutic Exercises Modalities Cold Pack/Ice Massage,Electric Stimulation,Hot Packs, Ultrasound Next Visit Focus/Plan Next Note Type Treatment Note Next Visit Plan 3 lb ankle weights for exercises and gait, gait training with metronome for speed 101-103 bpm forward, 89 bpm backwards and down steps and 93 bpm up steps, and soft step step down LLE less rigid, bending down deep, con't to work on not overshooting. Continue balance exercises with ball tossing
--- NOTE | 2024-06-21 15:30 | PT.OTN ---
Current Diagnoses Parkinson's disease without dyskinesia, with fluctuations (06/21/24) Physical Therapy Treatment Note PT-OP-A Visit Information Start: 04/28/24 07:48 Freq: Status: Active Protocol: Document 06/21/24 14:34 SP (Rec: 06/21/24 15:36 SP [id number]) Out-Patient Physical Therapy Visit Information Visit Information Visit Type Treatment Note Visit Note KX modifier is Shawna, pt goes by Jesse *There was a scheduling snafu and pt was scheduled for speech at 1515, before the end of BIG and so shorter treatment Visit Start Time 14:34 Visit Stop Time 15:30 Visit Number 21 Number of ROUTE SALES DELIVERY DRIVERS SUPERVISOR Visits 1 Evaluation Information Evaluation Date 05/03/24 Precautions Precautions Keep an eye on BP as needed PT-OP-B Current Condition Start: 04/28/24 07:48 Freq: Status: Active Protocol: Document 05/03/24 11:24 MB (Rec: 05/03/24 12:07 MB [id number]) Current Condition History of Current Condition Onset Date 2007 tremors left hand, now B Current Complaints Imbalance History of Current Condition Pt had speech therapy to work on swallowing d/t choking. Pt is getting palliative care nurse to help with alignment. Pt is biking on stationary bike 30 minutes every morning, weight lifting 3x/wk and occ biking outside. He fell off bike a year ago and broke his left thumb. He had trouble keeping his balance on his bike. Pt has 20 steps to enter home and uses a rail to get in home. 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 Pt is s/p DBS 11/07/19. He has a double DBS. He does not take any medications. Pt does not get light-headed when he gets up. He is just stiff when he gets up. Pt notices he bumps into things to the sides and forward. He tends to lean over to the right. Pt wears a support belt to help as well as compression undershirt. Pt drinks a lot in the morning including low caffeinated drinks. Treatment Goals Patient/Caregiver Goals To improve balance and work on standing up straight PT-OP-C Subjective Start: 04/28/24 07:48 Freq: Status: Active Protocol: Document 06/21/24 14:34 SP (Rec: 06/21/24 15:36 SP [id number]) OP-PT Subjective Patient Comments Patient Comments Pt reports doing. PT-OP-H Neuro Start: 04/28/24 07:48 Freq: Status: Active Protocol: Document 05/03/24 11:24 MB (Rec: 05/03/24 12:07 MB [id number]) Coordination Evaluation Upper Extremity Tests Left Finger to Nose Test Moderate Impairment Pronation/Supination Test Moderate Impairment Right Finger to Nose Test Minimal Impairment Pronation/Supination Test Minimal Impairment Lower Extremity Tests Left Alternate Heel to Knee; Heel to Toe Test Minimal Impairment Heel on Villegas Test Minimal Impairment Foot Tapping Test Minimal Impairment Right Alternate Heel to Knee; Heel to Toe Test Minimal Impairment Heel on Villegas Test Minimal Impairment Foot Tapping Test Minimal Impairment Vital Signs Comments Vital Signs Comments Orthostatic assessment with BP and HR in LUE: supine 152/82, 55; standing 136/68, 59; standing 1' 145/83, 62. PT-OP-K Range of Motion Start: 04/28/24 07:48 Freq: Status: Active Protocol: Document 05/03/24 11:24 MB (Rec: 05/03/24 12:07 MB [id number]) Finger Goniometric Range of Motion Finger ROM Limitations Comments L thumb has changes from old dislocation proximal phalanx and more recent fracture distal phalanx PT-OP-M Strength Start: 04/28/24 07:48 Freq: Status: Active Protocol: Document 05/03/24 11:24 MB (Rec: 05/03/24 12:07 MB [id number]) Shoulder Strength Shoulder Manual Muscle Testing Bilateral Flexion 5 Normal Elbow/Forearm Strength Elbow and Forearm Manual Muscle Testing Bilateral Extension (C7) 5 Normal Hip Strength Hip Manual Muscle Testing Bilateral Flexion (L2) 5 Normal Knee Strength Knee Manual Muscle Testing Bilateral Flexion (S2) 5 Normal Ankle/Foot Strength Ankle and Foot Manual Muscle Testing Bilateral Dorsiflexion (L4) 5 Normal Toe Strength Toe Manual Muscle Testing Left Great Toe Extension 5 Normal Right Great Toe Extension 5 Normal PT-OP-Q Treatments Start: 04/28/24 07:48 Freq: Status: Active Protocol: Document 06/21/24 14:34 SP (Rec: 06/21/24 15:36 SP [id number]) Therapeutic Exercises Sitting Exercises BIG sit to stand Equipment Used BIG chair, 3 lb ankle weights Reps/Minutes 10 reps BIG side to side Equipment Used BIG chair, 3 lb ankle weights Reps/Minutes 20 reps alternating Comments Cues to full flick with elbow, too BIG floor to ceiling Equipment Used BIG chair, 3 lb ankle weights Reps/Minutes 10 reps Comments Cues to full finger flick with elbow, too Standing Exercises Sideways rock and reach Equipment Used In front of mirror, 3 lb ankle weights Reps/Minutes 20 alternating Comments Improved BIG rock and reach Equipment Used In front of mirror, 3 lb ankle weights Reps/Minutes 10 reps each side Comments cued toe up x2 BIG backwards step Standing Exercise Name Most trouble with this one Equipment Used In front of mirror, 3 lb ankle weights Reps/Minutes 20 alternating reps Comments improved BIG side step Equipment Used In front of mirror, 3 lb ankle weights Reps/Minutes 20 reps alternating Comments Cued smaller stride for controlled return center BIG forward step Equipment Used In front of mirror, 3 lb ankle weights Reps/Minutes 20 alternating reps Comments Improved, cues for big PAULA, flicks Gait Training Gait Activity Gait pattern and guille work Distance/Duration ER hallway Comments 3 lb ankle weights donned, forward guille in ED hallway with 103 BPM forward gait and 89 BPM backward gait, [place] 83bpm and 89 BPM ascend and descend steps next to the rail Neuro Re-Education Treatment Balance Activities Ball passing balance activities Details Cognitive challenge: calling out sport teams Surface clinic gym Comments Walking fwd then backward lateral bounce pass cued keep up guille, semitandem balloon alfredo PT-OP-T Assessment and Plan Start: 04/28/24 07:48 Freq: Status: Active Protocol: Document 06/21/24 14:34 SP (Rec: 06/21/24 15:36 SP [id number]) Physical Therapy Assessment Goals 3 Impairment Lack of HEP Impairment . Prison Goal (LTG) Pt will perform BIG exercises with I to improve amplitude of movements and overall functional mobility. 05/30/24: Pt is performing his BIG exercises at home. He has some challenges and is not yet performing alternating exercises. 06/13/24: Pt is performing his BIG exercises as instructed and BIG walking LTG Duration 4 weeks 2 Impairment Evidence of imbalance Impairment . Prison Goal (LTG) Pt will perform WNLs on FGA to decrease fall risk. 05/30/24: FGA score is 18/30 06/13/24: Score is 20/30 and pt has improvements with steps, backwards walking, walking with EC and tandem LTG Duration 4 weeks 1 Impairment Impaired gait Impairment . [employer] Gun[employer] Goal (LTG) Pt will gait train at least 1716 feet in 6 minutes with improved B arm swing and foot clearance to improve community ambulation. 05/30/24: Pt gait trains 1670 feet in 6 minutes at 108 BPM metronome and cues to keep legs loose and big left hand 06/13/24: No metronome today and cues to loosen arms, BIG hands and BIG feet, clearing feet d/t rigid presentation and pt gait trains 1661 feet. It appears that he walks better/further with the auditory cues from the metronome LTG Duration 4 weeks Assessment Summary Assessment Pt improved small stepping today during exercises. Cues for taller wt shift fwd during back stepping. Improved guille [place]. Does have some imbalances semitandem balloon volley, self corrections. Physical Therapy Plan Frequency and Duration Frequency of Treatment 4x/wk Duration of treatment (weeks) 4 Plan of Care Start Date 05/30/24 Plan of Care End Date 07/01/24 Therapeutic Interventions Therapeutic Interventions Balance Training,Canalithic Repositioning,Coordination Training,Gait Training,Home Exercise Program,Joint Mobilizations,Neuromuscular Re -education,Patient/Caregiver Education,Self-Care/Home Management,Soft Tissue Mobilization,Taping, Therapeutic Activities, Therapeutic Exercises Modalities Cold Pack/Ice Massage,Electric Stimulation,Hot Packs, Ultrasound Next Visit Focus/Plan Next Note Type Treatment Note Next Visit Plan 3 lb ankle weights for exercises and gait, gait training with metronome for speed 101-103 bpm forward, 89 bpm backwards and down steps and 93 bpm up steps, and soft step step down LLE less rigid, bending down deep, con't to work on not overshooting. Continue balance exercises with ball tossing
--- NOTE | 2024-06-22 15:32 | PT.OTN ---
Current Diagnoses Parkinson's disease without dyskinesia, with fluctuations (06/22/24) Physical Therapy Treatment Note PT-OP-A Visit Information Start: 04/28/24 07:48 Freq: Status: Active Protocol: Document 06/22/24 14:37 MB (Rec: 06/22/24 15:32 MB [id number]) Out-Patient Physical Therapy Visit Information Visit Information Visit Type Treatment Note Visit Note KX modifier is Shawna, pt goes by Jesse Visit Start Time 14:37 Visit Stop Time 15:30 Visit Number 22 Number of TRACK OILER Visits 0 Evaluation Information Evaluation Date 05/03/24 Precautions Precautions Keep an eye on BP as needed PT-OP-B Current Condition Start: 04/28/24 07:48 Freq: Status: Active Protocol: Document 05/03/24 11:24 MB (Rec: 05/03/24 12:07 MB [id number]) Current Condition History of Current Condition Onset Date 2007 tremors left hand, now B Current Complaints Imbalance History of Current Condition Pt had speech therapy to work on swallowing d/t choking. Pt is getting foster care therapist to help with alignment. Pt is biking on stationary bike 30 minutes every morning, weight lifting 3x/wk and occ biking outside. He fell off bike a year ago and broke his left thumb. He had trouble keeping his balance on his bike. Pt has 20 steps to enter home and uses a rail to get in home. 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 Pt is s/p DBS 11/07/19. He has a double DBS. He does not take any medications. Pt does not get light-headed when he gets up. He is just stiff when he gets up. Pt notices he bumps into things to the sides and forward. He tends to lean over to the right. Pt wears a support belt to help as well as compression undershirt. Pt drinks a lot in the morning including low caffeinated drinks. Treatment Goals Patient/Caregiver Goals To improve balance and work on standing up straight PT-OP-C Subjective Start: 04/28/24 07:48 Freq: Status: Active Protocol: Document 06/22/24 14:37 MB (Rec: 06/22/24 15:32 MB [id number]) OP-PT Subjective Patient Comments Patient Comments Pt feels like his balance is better since starting [facility] BIG . PT-OP-H Neuro Start: 04/28/24 07:48 Freq: Status: Active Protocol: Document 05/03/24 11:24 MB (Rec: 05/03/24 12:07 MB [id number]) Coordination Evaluation Upper Extremity Tests Left Finger to Nose Test Moderate Impairment Pronation/Supination Test Moderate Impairment Right Finger to Nose Test Minimal Impairment Pronation/Supination Test Minimal Impairment Lower Extremity Tests Left Alternate Heel to Knee; Heel to Toe Test Minimal Impairment Heel on Villegas Test Minimal Impairment Foot Tapping Test Minimal Impairment Right Alternate Heel to Knee; Heel to Toe Test Minimal Impairment Heel on Villegas Test Minimal Impairment Foot Tapping Test Minimal Impairment Vital Signs Comments Vital Signs Comments Orthostatic assessment with BP and HR in LUE: supine 152/82, 55; standing 136/68, 59; standing 1' 145/83, 62. PT-OP-K Range of Motion Start: 04/28/24 07:48 Freq: Status: Active Protocol: Document 05/03/24 11:24 MB (Rec: 05/03/24 12:07 MB [id number]) Finger Goniometric Range of Motion Finger ROM Limitations Comments L thumb has changes from old dislocation proximal phalanx and more recent fracture distal phalanx PT-OP-M Strength Start: 04/28/24 07:48 Freq: Status: Active Protocol: Document 05/03/24 11:24 MB (Rec: 05/03/24 12:07 MB [id number]) Shoulder Strength Shoulder Manual Muscle Testing Bilateral Flexion 5 Normal Elbow/Forearm Strength Elbow and Forearm Manual Muscle Testing Bilateral Extension (C7) 5 Normal Hip Strength Hip Manual Muscle Testing Bilateral Flexion (L2) 5 Normal Knee Strength Knee Manual Muscle Testing Bilateral Flexion (S2) 5 Normal Ankle/Foot Strength Ankle and Foot Manual Muscle Testing Bilateral Dorsiflexion (L4) 5 Normal Toe Strength Toe Manual Muscle Testing Left Great Toe Extension 5 Normal Right Great Toe Extension 5 Normal PT-OP-Q Treatments Start: 04/28/24 07:48 Freq: Status: Active Protocol: Document 06/22/24 14:37 MB (Rec: 06/22/24 15:32 MB [id number]) Gait Training Gait Activity Gait pattern and guille work Comments Only backwards walking and grapevine today 6MWT Comments 06/22/24: Metronome 109 BPM and pt gait trains 1829 feet with good arm swing and foot clearance, BIG steps Neuro Re-Education Treatment Balance Activities FGA Comments 06/22/24: FGA score 23/30 Self-Care/Home Management Treatment Education Other Education Education to con't LSVT BIG once a day at graduation, LSVT BIG walking with metronome 103-109 BPM for 10', starting LSVT Big for Life community class and given handout for study after class if he wants to participate and answered all questions. Ed pt to be careful with backwards walking and russell, ed pt that he can come back for BIG refresher in 6 months, ask Dr. Zamora to check DBS PT-OP-T Assessment and Plan Start: 04/28/24 07:48 Freq: Status: Active Protocol: Document 06/22/24 14:37 MB (Rec: 06/22/24 15:32 MB [id number]) Physical Therapy Assessment Rehab Potential Rehabilitation Potential Good Evaluation Complexity Number of Personal Factors/Comorbidities 1-2 Number of Body Systems Impaired 3 Clinical Presentation at Evaluation Evolving Impairments Impairments Activity Tolerance,Balance, Coordination,Functional Activities,Functional Mobility ,Gait,Pain,Posture,ROM,Soft Tissue Mobility,Strength, Transfers Goals 3 Impairment Lack of HEP Flight Dispatcher Goal (LTG) Pt will perform BIG exercises with I to improve amplitude of movements and overall functional mobility. 05/30/24: Pt is performing his BIG exercises at home. He has some challenges and is not yet performing alternating exercises. 06/13/24: Pt is performing his BIG exercises as instructed and BIG walking 06/22/24: Pt is performing his BIG exercises as instructed and BIG walking LTG Duration Met Goal 2 Impairment Evidence of imbalance Mcfp Goal (LTG) Pt will perform WNLs on FGA to decrease fall risk. 05/30/24: FGA score is 18/30 06/13/24: Score is 20/30 and pt has improvements with steps, backwards walking, walking with EC and tandem 06/22/24: FGA score 23/30 LTG Duration Progressed towards goal 1 Impairment Impaired gait Flight Dispatcher Goal (LTG) Pt will gait train at least 1716 feet in 6 minutes with improved B arm swing and foot clearance to improve community ambulation. 05/30/24: Pt gait trains 1670 feet in 6 minutes at 108 BPM metronome and cues to keep legs loose and big left hand 06/13/24: No metronome today and cues to loosen arms, BIG hands and BIG feet, clearing feet d/t rigid presentation and pt gait trains 1661 feet. It appears that he walks better/further with the auditory cues from the metronome 06/22/24: Metronome 109 BPM and pt gait trains 1829 feet with good arm swing and foot clearance, BIG steps LTG Duration Surpassed goal Assessment Summary Assessment PT sees pt on th visit and prepares all d/c testing and education and pt will have a final 16th treatment with TRACK OILER tomorrow, which is fine and according to plan. Pt surpassed 6MWT goal with use of metronome, which is very helpful for pt's gait speed, arm swing and large amplitude steps. He is performing BIG exercises at home and will con 't BIG metronome walking at least 10' metronome walking a day. He will start BIG for Life class. Physical Therapy Plan Frequency and Duration Frequency of Treatment 4x/wk Duration of treatment (weeks) 4 Plan of Care Start Date 05/30/24 Plan of Care End Date 07/01/24 Therapeutic Interventions Therapeutic Interventions Balance Training,Canalithic Repositioning,Coordination Training,Gait Training,Home Exercise Program,Joint Mobilizations,Neuromuscular Re -education,Patient/Caregiver Education,Self-Care/Home Management,Soft Tissue Mobilization,Taping, Therapeutic Activities, Therapeutic Exercises Modalities Cold Pack/Ice Massage,Electric Stimulation,Hot Packs, Ultrasound Next Visit Focus/Plan Next Note Type Discharge Summary Next Visit Plan 3 lb ankle weights for exercises and gait, gait training with metronome for speed 101-103 bpm forward, 89 bpm backwards and down steps and 93 bpm up steps, and soft step step down LLE less rigid, bending down deep, con't to work on not overshooting. Continue balance exercises with ball tossing
--- NOTE | 2024-06-23 15:34 | PT.OTN ---
Current Diagnoses Parkinson's disease without dyskinesia, with fluctuations (06/23/24) Physical Therapy Treatment Note PT-OP-A Visit Information Start: 04/28/24 07:48 Freq: Status: Active Protocol: Document 06/23/24 14:34 SP (Rec: 06/23/24 16:01 SP [id number]) Out-Patient Physical Therapy Visit Information Visit Information Visit Type Treatment Note Visit Note KX modifier is Shawna, pt goes by Jesse Visit Start Time 14:34 Visit Stop Time 15:34 Visit Number 23 Number of CONNIE CLEANER Visits 1 Evaluation Information Evaluation Date 05/03/24 Precautions Precautions Keep an eye on BP as needed PT-OP-B Current Condition Start: 04/28/24 07:48 Freq: Status: Active Protocol: Document 05/03/24 11:24 MB (Rec: 05/03/24 12:07 MB [id number]) Current Condition History of Current Condition Onset Date 2007 tremors left hand, now B Current Complaints Imbalance History of Current Condition Pt had speech therapy to work on swallowing d/t choking. Pt is getting property caretaker to help with alignment. Pt is biking on stationary bike 30 minutes every morning, weight lifting 3x/wk and occ biking outside. He fell off bike a year ago and broke his left thumb. He had trouble keeping his balance on his bike. Pt has 20 steps to enter home and uses a rail to get in home. 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 Pt is s/p DBS 11/07/19. He has a double DBS. He does not take any medications. Pt does not get light-headed when he gets up. He is just stiff when he gets up. Pt notices he bumps into things to the sides and forward. He tends to lean over to the right. Pt wears a support belt to help as well as compression undershirt. Pt drinks a lot in the morning including low caffeinated drinks. Treatment Goals Patient/Caregiver Goals To improve balance and work on standing up straight PT-OP-C Subjective Start: 04/28/24 07:48 Freq: Status: Active Protocol: Document 06/23/24 14:34 SP (Rec: 06/23/24 16:01 SP [id number]) OP-PT Subjective Patient Comments Patient Comments Pt report forgot his leg wts today, feels pretty confident in exercises, wants to work more on balance and gait activities today. PT-OP-H Neuro Start: 04/28/24 07:48 Freq: Status: Active Protocol: Document 05/03/24 11:24 MB (Rec: 05/03/24 12:07 MB [id number]) Coordination Evaluation Upper Extremity Tests Left Finger to Nose Test Moderate Impairment Pronation/Supination Test Moderate Impairment Right Finger to Nose Test Minimal Impairment Pronation/Supination Test Minimal Impairment Lower Extremity Tests Left Alternate Heel to Knee; Heel to Toe Test Minimal Impairment Heel on Villegas Test Minimal Impairment Foot Tapping Test Minimal Impairment Right Alternate Heel to Knee; Heel to Toe Test Minimal Impairment Heel on Villegas Test Minimal Impairment Foot Tapping Test Minimal Impairment Vital Signs Comments Vital Signs Comments Orthostatic assessment with BP and HR in LUE: supine 152/82, 55; standing 136/68, 59; standing 1' 145/83, 62. PT-OP-K Range of Motion Start: 04/28/24 07:48 Freq: Status: Active Protocol: Document 05/03/24 11:24 MB (Rec: 05/03/24 12:07 MB [id number]) Finger Goniometric Range of Motion Finger ROM Limitations Comments L thumb has changes from old dislocation proximal phalanx and more recent fracture distal phalanx PT-OP-M Strength Start: 04/28/24 07:48 Freq: Status: Active Protocol: Document 05/03/24 11:24 MB (Rec: 05/03/24 12:07 MB [id number]) Shoulder Strength Shoulder Manual Muscle Testing Bilateral Flexion 5 Normal Elbow/Forearm Strength Elbow and Forearm Manual Muscle Testing Bilateral Extension (C7) 5 Normal Hip Strength Hip Manual Muscle Testing Bilateral Flexion (L2) 5 Normal Knee Strength Knee Manual Muscle Testing Bilateral Flexion (S2) 5 Normal Ankle/Foot Strength Ankle and Foot Manual Muscle Testing Bilateral Dorsiflexion (L4) 5 Normal Toe Strength Toe Manual Muscle Testing Left Great Toe Extension 5 Normal Right Great Toe Extension 5 Normal PT-OP-Q Treatments Start: 04/28/24 07:48 Freq: Status: Active Protocol: Document 06/23/24 14:34 SP (Rec: 06/23/24 16:01 SP [id number]) Gym Equipment Shuttle Balance Red Chains Details Fwd/Bwd wt shift, stationary balance with head turns Reps/Duration 3 min Comments WBOS, NBOS, semitandem Improved midline stability with cuing for pelvis under trunk, wt shift into direction LE needed for balance, helped with carryover uneven surface gab stepping and skiiing, better understanding where his body needs to move due to shuttle balance provided micro changes helped BIGGER activities. Gait Training Gait Activity Dynamic Gait Distance/Duration in clinic Comments forward and lateral uneven mats and 8 box step, stepping with hurdles forward trunk midline corrections improved, multiple height steps (4, 6, 8box steps) cues soft descend L knee landing, fwd hurdles soft guille then added ski through cones, grapevine lateral forward stepping only, cues for slower guille and stepping fluid for midline trunk. Improves with reps Gait pattern and guille work Description Metronome: fwd 101-103bpm, retro 89 bpm Surface sidewalks outside Distance/Duration outside around campus perimeter, back stepping outside ER Comments 3lb ankle weights, occ cues for toe up inclines with softer stepping, arms swings during conversation, back stepping cue BIGGER steps improved toe then heel and guille 89 bpm Neuro Re-Education Treatment Balance Activities Ball passing balance activities Details Cognitive challenge: calling out sport teams Surface clinic gym Comments Walking lateral random bounce and chest pass with cued keep up guille fluid soft stepping not rigid; semitandem bounce and chest passes with cognitive challenge PT-OP-T Assessment and Plan Start: 04/28/24 07:48 Freq: Status: Active Protocol: Document 06/23/24 14:34 SP (Rec: 06/23/24 16:01 SP [id number]) Physical Therapy Assessment Goals 3 Impairment Lack of HEP Impairment . Halfway Goal (LTG) Pt will perform BIG exercises with I to improve amplitude of movements and overall functional mobility. 05/30/24: Pt is performing his BIG exercises at home. He has some challenges and is not yet performing alternating exercises. 06/13/24: Pt is performing his BIG exercises as instructed and BIG walking 06/22/24: Pt is performing his BIG exercises as instructed and BIG walking LTG Duration Met Goal 2 Impairment Evidence of imbalance Impairment . Halfway Goal (LTG) Pt will perform WNLs on FGA to decrease fall risk. 05/30/24: FGA score is 18/30 06/13/24: Score is 20/30 and pt has improvements with steps, backwards walking, walking with EC and tandem 06/22/24: FGA score 23/30 LTG Duration Progressed towards goal 1 Impairment Impaired gait Impairment . Digester Hand Goal (LTG) Pt will gait train at least 1716 feet in 6 minutes with improved B arm swing and foot clearance to improve community ambulation. 05/30/24: Pt gait trains 1670 feet in 6 minutes at 108 BPM metronome and cues to keep legs loose and big left hand 06/13/24: No metronome today and cues to loosen arms, BIG hands and BIG feet, clearing feet d/t rigid presentation and pt gait trains 1661 feet. It appears that he walks better/further with the auditory cues from the metronome 06/22/24: Metronome 109 BPM and pt gait trains 1829 feet with good arm swing and foot clearance, BIG steps LTG Duration Surpassed goal Assessment Summary Assessment Tx focused on BIGGER Balance with guille and soft stepping , progressed distance outdoor BIG Walking, occasional cues for DF toe up inclines good maintain guille 103 bpm, improved retro stepping with cues for BIGGER stepping toe strike then heel lower better and keeping up with cadance 89 bpm all with leg weights donned. Improved trunk wts shifts body awareness microcorrections on shuttle balance carryover with cuing education during cones skiing and soft stepping steps and gab navigation, more midline stability not as rigid today. Pt has completed LSVT BIG and plans to progress and attend LSVT BIG for LIFE next week. He stated might come back every so often to for a refresher and see how progressing on his balance testing for self awareness. Physical Therapy Plan Frequency and Duration Frequency of Treatment 4x/wk Duration of treatment (weeks) 4 Plan of Care Start Date 05/30/24 Plan of Care End Date 07/01/24 Therapeutic Interventions Therapeutic Interventions Balance Training,Canalithic Repositioning,Coordination Training,Gait Training,Home Exercise Program,Joint Mobilizations,Neuromuscular Re -education,Patient/Caregiver Education,Self-Care/Home Management,Soft Tissue Mobilization,Taping, Therapeutic Activities, Therapeutic Exercises Modalities Cold Pack/Ice Massage,Electric Stimulation,Hot Packs, Ultrasound Next Visit Focus/Plan Next Note Type Discharge Summary Next Visit Plan PT to complete DC.
--- NOTE | 2024-06-27 08:13 | PT.OPDS ---
Current Diagnoses Parkinson's disease without dyskinesia, with fluctuations (06/23/24) Visit Care Team Role Provider Type Sony Meléndez MD Primary Care Provider Non-Staff Specialty: Internal Medicine Address: [address], [place], [address] Email: David Fan MD Family Provider Non-Staff Specialty: Medical Address: [address], [place], [address] Email: Sixto Zamora DO Attending Provider Non-Staff Referring Provider Specialty: Psychiatry Address[address] [address] [place], [address] Email: Visit Number Visit Number 23 Discharge Summary PT-OP-B Current Condition Start: 04/28/24 07:48 Freq: Status: Active Protocol: Document 05/03/24 11:24 MB (Rec: 05/03/24 12:07 MB [id number]) Current Condition History of Current Condition Onset Date 2007 tremors left hand, now B Current Complaints Imbalance History of Current Condition Pt had speech therapy to work on swallowing d/t choking. Pt is getting care coordination manager to help with alignment. Pt is biking on stationary bike 30 minutes every morning, weight lifting 3x/wk and occ biking outside. He fell off bike a year ago and broke his left thumb. He had trouble keeping his balance on his bike. Pt has 20 steps to enter home and uses a rail to get in home. 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 Pt is s/p DBS 11/07/19. He has a double DBS. He does not take any medications. Pt does not get light-headed when he gets up. He is just stiff when he gets up. Pt notices he bumps into things to the sides and forward. He tends to lean over to the right. Pt wears a support belt to help as well as compression undershirt. Pt drinks a lot in the morning including low caffeinated drinks. Treatment Goals Patient/Caregiver Goals To improve balance and work on standing up straight PT-OP-C Subjective Start: 04/28/24 07:48 Freq: Status: Active Protocol: Document 06/23/24 14:34 SP (Rec: 06/23/24 16:01 SP [id number]) OP-PT Subjective Patient Comments Patient Comments Pt report forgot his leg wts today, feels pretty confident in exercises, wants to work more on balance and gait activities today. PT-OP-H Neuro Start: 04/28/24 07:48 Freq: Status: Active Protocol: Document 05/03/24 11:24 MB (Rec: 05/03/24 12:07 MB [id number]) Coordination Evaluation Upper Extremity Tests Left Finger to Nose Test Moderate Impairment Pronation/Supination Test Moderate Impairment Right Finger to Nose Test Minimal Impairment Pronation/Supination Test Minimal Impairment Lower Extremity Tests Left Alternate Heel to Knee; Heel to Toe Test Minimal Impairment Heel on Villegas Test Minimal Impairment Foot Tapping Test Minimal Impairment Right Alternate Heel to Knee; Heel to Toe Test Minimal Impairment Heel on Villegas Test Minimal Impairment Foot Tapping Test Minimal Impairment Vital Signs Comments Vital Signs Comments Orthostatic assessment with BP and HR in LUE: supine 152/82, 55; standing 136/68, 59; standing 1' 145/83, 62. PT-OP-K Range of Motion Start: 04/28/24 07:48 Freq: Status: Active Protocol: Document 05/03/24 11:24 MB (Rec: 05/03/24 12:07 MB [id number]) Finger Goniometric Range of Motion Finger ROM Limitations Comments L thumb has changes from old dislocation proximal phalanx and more recent fracture distal phalanx PT-OP-M Strength Start: 04/28/24 07:48 Freq: Status: Active Protocol: Document 05/03/24 11:24 MB (Rec: 05/03/24 12:07 MB [id number]) Shoulder Strength Shoulder Manual Muscle Testing Bilateral Flexion 5 Normal Elbow/Forearm Strength Elbow and Forearm Manual Muscle Testing Bilateral Extension (C7) 5 Normal Hip Strength Hip Manual Muscle Testing Bilateral Flexion (L2) 5 Normal Knee Strength Knee Manual Muscle Testing Bilateral Flexion (S2) 5 Normal Ankle/Foot Strength Ankle and Foot Manual Muscle Testing Bilateral Dorsiflexion (L4) 5 Normal Toe Strength Toe Manual Muscle Testing Left Great Toe Extension 5 Normal Right Great Toe Extension 5 Normal PT-OP-T Assessment and Plan Start: 04/28/24 07:48 Freq: Status: Active Protocol: Document 06/27/24 08:12 MB (Rec: 06/27/24 08:13 MB [id number]) Physical Therapy Assessment Assessment Summary Assessment Pt has completed LSVT BIG and discharged.
== END 2024-07-11 13:44 | disposition home or self-care (01) ==
LOC: PHYS 14:30
PROVIDERS: Family Provider Family Medicine; PCP Internal Medicine; Referring Provider Internal Medicine; Visit Provider Internal Medicine
DX: G20.A2 Parkinson's disease without dyskinesia, with fluctuations (principal)
CPT/HCPCS: 97110; 97112; 97116; 97162; 97530; 97535

== ENCOUNTER → 2024-10-14 09:37 | Outpatient (CLI) | payer MEDICARE, OTHER, SELFPAY | PROVIDERS: Family Provider Family Medicine; PCP Internal Medicine; Visit Provider Nurse Practitioner Family | DX: R30.0 Dysuria (principal) | CPT/HCPCS: 87077; 87086; 87186 ==